=== PATIENT | male | born 1970 | race Caucasian/White ===

== ENCOUNTER 2020-07-24 14:29 | Outpatient (REF) | payer BC, SELFPAY ==
--- NOTE | 2020-07-24 | US_ITS ---
EXAMINATION: US RETROPERITONEAL LIMITED (RENAL ONLY) CLINICAL INFORMATION: Renal stone. COMPARISON: CT abdomen and pelvis 11/20/2019 TECHNIQUE: Real-time imaging of the kidneys. FINDINGS: RIGHT KIDNEY: 12.4 x 5.2 x 5.8 cm (SAG x AP x TRV). The kidney is normal in size, contour, and echogenicity. Renal cortical thickness is normal. No calculi or focal parenchymal lesions. No hydronephrosis. LEFT KIDNEY: 11.4 x 6.2 x 4.8 cm (SAG x AP x TRV). The kidney is normal in size, contour, and echogenicity. Renal cortical thickness is normal. No calculi or focal parenchymal lesions. No hydronephrosis. US/US renal BI IMPRESSION: Unremarkable renal ultrasound. There is no renal calculi or hydronephrosis.
== END 2020-07-24 14:30 | disposition home or self-care (01) ==
LOC: HO.HMGCX 14:29
PROVIDERS: PCP Nurse Practitioner Family; Visit Provider Urology
DX: N20.0 Calculus of kidney (principal)
CPT/HCPCS: 76775

== ENCOUNTER → 2020-08-17 13:44 | Outpatient (BNVA) | payer BC, SELFPAY | PROVIDERS: PCP Nurse Practitioner Family; Visit Provider Urology ==

== ENCOUNTER 2021-01-28 15:34 | Outpatient (REF) | payer BC, SELFPAY ==
--- NOTE | ~2021-01-28 | XR_ITS ---
EXAMINATION: XR HIP, RIGHT CLINICAL INFORMATION: Pain COMPARISON: None TECHNIQUE: Two views of the right hip. FINDINGS: Bone alignment is normal. No fracture or dislocation is seen. There is mild bilateral hip arthritis with joint space narrowing and osteophyte formation, left greater than right. Bones of the pelvis are unremarkable. Soft tissues are unremarkable. XR/XR hip RT w PEL1V IMPRESSION: Mild bilateral hip arthritis.
== END 2021-01-28 15:35 | disposition home or self-care (01) ==
LOC: HO.HMGCX 15:34
PROVIDERS: PCP Nurse Practitioner Family; Visit Provider Nurse Practitioner Family
DX: M25.551 Pain in right hip (principal)
CPT/HCPCS: 73502

== ENCOUNTER 2021-09-10 14:32 | Outpatient (REF) | payer BC, SELFPAY ==
--- NOTE | ~2021-09-10 | US_ITS ---
EXAMINATION: US RETROPERITONEAL LIMITED (RENAL ONLY) CLINICAL INFORMATION: Renal calculi. COMPARISON: Ultrasound renal 07/24/2020. CT abdomen pelvis 11/20/2019. TECHNIQUE: Real-time imaging of the kidneys and bladder. FINDINGS: RIGHT KIDNEY: 12.8 x 5.4 x 6.2 cm (SAG x AP x TRV). The kidney is normal in size, contour, and echogenicity. Renal cortical thickness is normal. No calculi or focal parenchymal lesions. No hydronephrosis. LEFT KIDNEY: 11.4 x 5.5 x 5.1 cm (SAG x AP x TRV). The kidney is normal in size, contour, and echogenicity. Renal cortical thickness is normal. No calculi or focal parenchymal lesions. No hydronephrosis. US/US renal BI IMPRESSION: Normal renal ultrasound.
== END 2021-09-10 14:33 | disposition home or self-care (01) ==
LOC: HO.HMGCX 14:32
PROVIDERS: Visit Provider Urology
DX: Z87.442 Personal history of urinary calculi (principal)
CPT/HCPCS: 76775

== ENCOUNTER → 2021-11-07 15:37 | Outpatient (BNVA) | payer BC, SELFPAY | PROVIDERS: PCP Nurse Practitioner Family; Visit Provider Urology | DX: Z13.89 Encounter for screening for other disorder (principal) ==

== ENCOUNTER 2022-06-23 08:22 | Outpatient (REF) | payer BC, SELFPAY ==
--- NOTE | ~2022-06-23 | XR_ITS ---
EXAMINATION: XR KNEE, LEFT CLINICAL INFORMATION: Knee contusion. COMPARISON: None TECHNIQUE: Four views of the left knee. FINDINGS: Bones and soft tissues appear unremarkable. No fracture or joint effusion appreciated. Alignment is anatomic. Joint spaces are well maintained. No abnormal soft tissue calcification. XR/XR knee LT 4V IMPRESSION: Normal plain film examination of the left knee.
== END 2022-06-23 08:23 | disposition home or self-care (01) ==
LOC: HO.HMGCX 08:22
PROVIDERS: PCP Nurse Practitioner Family; Visit Provider Emergency Medicine
DX: S80.02XA Contusion of left knee, initial encounter (principal)
CPT/HCPCS: 73564

== ENCOUNTER 2022-10-11 10:06 | Inpatient (IN) | payer BC, SELFPAY ==
[2022-10-11] VITALS (8 sets, daily range): BP systolic 116–143; BP diastolic 67–92; PULSE 104–127; RESP 18–24; TEMP 36.8–37; O2SAT 89–96; BMI 26.2
--- NOTE | 2022-10-11 | ECG_ITS ---
Test Reason : chest pain Blood Pressure : / mmHG Vent. Rate : 124 BPM Atrial Rate : 124 BPM P-R Int : 168 ms QRS Dur : 092 ms QT Int : 310 ms P-R-T Axes : 070 -24 056 degrees QTc Int : 445 ms Sinus tachycardia Nonspecific ST abnormality Abnormal ECG When compared with ECG of 17-MAR-2015 13:30, Vent. rate has increased BY [address] elevation now present in Inferior leads T wave inversion no longer evident in Inferior leads Referred By: Generic ED Physician Electronically Signed By:WHITNEY SONI MD
--- NOTE | ~2022-10-11 | XR_ITS ---
EXAMINATION: XR CHEST CLINICAL INFORMATION: Chest pain COMPARISON: Chest 08/09/2016 TECHNIQUE: 2 views of the chest were obtained. FINDINGS: The lungs are slightly hyperinflated but clear of acute process. There is prominent bilateral parahilar markings peribronchial coughing similar previous study likely chronic changes. No pleural effusion. The heart size and pulmonary vascularity is normal. No gross bony abnormality. XR/XR chest 2V IMPRESSION: Prominent bilateral parahilar markings and peribronchial coughing likely chronic airway disease. No acute pneumonic process seen. .
--- NOTE | ~2022-10-11 | CT_ITS ---
EXAMINATION: CT ANGIOGRAM OF THE CHEST WITH AND WITHOUT CONTRAST (CT PULMONARY ANGIOGRAM FOR PE) CLINICAL INFORMATION: Reason for Exam r/o pe COMPARISON: None available. TECHNIQUE: Prior to contrast administration, noncontrast localization images were obtained. Subsequently, multidetector volumetric imaging was performed from the thoracic inlet to below the diaphragms following the administration of 80 mL Omnipaque 350 intravenous contrast. No contrast reaction reported Sagittal, coronal, and MIP oblique sagittal reformatted images were obtained on the CT workstation, uploaded to PACS, and reviewed. This CT examination was performed using dose optimization techniques as appropriate, variously including the following: *Automated exposure control *Adjustment of mA and/or kV according to patient size (this includes techniques or standardized protocols for targeted exams where dose is matched to indication/reason for exam; i.e. extremities or head) *Use of iterative reconstruction technique Total exam dose-length product 342 mGy-cm FINDINGS: QUALITY OF STUDY/CONTRAST BOLUS: Satisfactory. PULMONARY ARTERIES: No central or segmental pulmonary emboli. THORACIC AORTA: No aneurysm or dissection. LUNG: There is a focal groundglass density right upper lobe posteriorly image 16/6. No additional pulmonary nodule, mass or atelectasis. PLEURA: No pleural effusion or pneumothorax. MEDIASTINUM: Heart size and the great vessels are normal caliber. Central trachea and the bronchi widely patent. There is a left thyroid hypodense nodule measuring 2.8 x 2.8 cm. There are small 1 cm lymph nodes lateral to the left coronary artery. No evidence of septal bowing or right heart strain. CORONARY ARTERY CALCIFICATION: None visualized on this study. CHEST WALL/AXILLA: Small shotty lymph nodes are seen in the axilla. The chest wall is unremarkable. OSSEOUS STRUCTURES: No acute or suspicious osseous abnormality. UPPER ABDOMEN: Visualized liver, spleen, pancreas and bilateral adrenal glands unremarkable. No reflux of contrast into the hepatic veins to suggest elevated right heart pressures. CT/CT angio chest PE protocol IMPRESSION: 1. No evidence of PE. 2. No evidence of aortic dissection or aneurysm. 3. Focal groundglass density right upper lobe. 4. Left thyroid nodule. 5. VTE: negative
[2022-10-11 10:46] LABS: MANUAL DIFF FLAG NO
[2022-10-11 10:52] LABS: Basophils Absolute Auto 0.1 X10*3/uL (0.0-0.2); Basophils Percent Auto 1.6 % (0-2); Eosinophils Percent Auto 11.3 % (0-4); Hematocrit 45.8 % (42.0-52.0); Hemoglobin 15.9 g/dl (14.0-18.0); Imm Gran Abs Auto 0.03 X10*3/uL (0.00-0.03); Imm Gran Pct Auto 0.3 % (0.0-0.4); Lymphocytes Absolute Auto 1.7 X10*3/uL (1.2-4.9); Lymphocytes Percent Auto 18.5 % (20-40); Mean Corpuscular HGB Conc 34.7 g/dl (31.0-36.0); Mean Corpuscular Hemoglobin 32.8 pg (27.0-33.0); Mean Corpuscular Volume 94.4 fL (80.0-98.0); Mean Platelet Volume 13.1 fL (9.4-12.4); Monocytes Percent Auto 10.9 % (2-11); Neutrophils Absolute Auto 5.2 x10*3/uL (2.0-8.3); Neutrophils Percent Auto 57.4 % (45-73); Platelet Count 199 X10*3/uL (160-400); Red Blood Count 4.85 X10*6/uL (4.60-5.80); Red Cell Distribution Width 11.8 % (11.0-16.0)
[2022-10-11 11:03] LABS: Alanine Aminotransferase 46 U/L (0-40); Albumin Level 4.6 g/dL (3.5-5.0); Alkaline Phosphatase 92 U/L (39-117); Anion Gap 16 (12-20); Aspartate Amino Transferase 26 U/L (5-37); Bilirubin Total 0.7 mg/dL (0.0-1.0); Blood Urea Nitrogen 11 mg/dL (9-16); Calcium 9.8 mg/dL (8.4-10.2); Carbon Dioxide 22 mmol/L (22-29); Chloride 101 mmol/L (96-108); Creatinine Clr Calc Pharmacy 108.8; Estimated Glomerular Filt Rate > 60; Glucose Random 183 mg/dL (60-115); Potassium 4.3 mmol/L (3.3-5.1); Sodium 135 mmol/L (135-145); Total Protein 7.2 g/dL (6.5-8.0)
[2022-10-11 11:26] LABS: Troponin-I High Sensitivity < 3.5 ng/L (<3.5-35.0)
--- NOTE | 2022-10-11 11:44 | ED_ITS ---
HPI - Chest Pain General Chief Complaint: Chest Pain Stated Complaint: chest pain + cough Time Seen by Provider: 10/11/22 11:11 Source: patient Mode of arrival: ambulatory Limitations: no limitations History of Present Illness HPI narrative: This is a 52 years old presented to emergency department complaining of left chest pain since last night, the patient has been coughing, he visited an urgent care 3 days ago he was given azithromycin. Pain is described as a pressure. Denies any fever chills MD complaint: chest pain Pertinent past history: asthma Onset (ago): day(s) (1) Timing of current episode: constant Onset: during rest Pain radiation: none Quality: aching Risk Factors Coronary artery disease risk factors: none Thoracic aortic dissection risk factors: none Related Data Previous Rx's Medication Instructions Recorded azithromycin 250 mg tablet See Rx Instructions PO .COMPLEX #6 10/08/22 tabs Allergies Allergy/AdvReac Type Severity Reaction Status Date / Time acetaminophen [Percocet] Allergy Unknown anaphylaxis Verified 10/08/22 16:43 oxycodone [Percocet] Allergy Unknown anaphylaxis, Verified 10/08/22 16:43 turn nascimento scallops Allergy Unknown UNKNOWN Verified 10/08/22 16:43 From PERCOCET Allergy Unknown DIFFICULTY Uncoded 06/23/22 08:09 BREATHING scallops Allergy Unknown unknown Uncoded 06/23/22 08:09 Review of Systems Constitutional: Constitutional: Reports no additional constitutional complaints Eyes: Eyes: Reports no additional eye complaints Respiratory: Respiratory: Reports no additional respiratory complaints PMFSH Past Medical History Attestation statement: The following information was validated with the patient. Medical History Hx of renal calculi Hyperlipidemia Knee contusion Social History Social History Alcohol intake: current Alcohol intake frequency: 0-2 drinks per day Alcohol type: beer Patient Tobacco Use Status: Current someday Tobacco user Smoked in Last 30 Days: Yes Use of substances other than those prescribed or required for medical reasons: No Advance Directives: No Physical Exam Vital Signs: Vital Signs: Last Vital Signs Temp 98.6 F 10/11/22 12:44 Pulse 127 H 10/11/22 15:21 Resp 20 10/11/22 15:21 BP 123/83 10/11/22 15:21 Pulse Ox 96 10/11/22 15:21 O2 Del Method Aerosol Mask 10/11/22 15:21 O2 Flow Rate 5 10/11/22 15:21 BMI result Body Mass Index 26.2 Const: General: cooperative Nutritional Appearance: well nourished Orientation/consciousness: patient oriented x3 HEENT: Head: Yes normal to inspection and Yes No palpable skull fracture present General nose exam: Normal external nose present Face and sinus: Yes normal facial exam Mouth: Normal oral and palatal mucosa present Throat: Yes posterior oropharynx normal Neck: Neck: Yes normal visual inspection and Yes full ROM Chest: Chest palpation & inspection: normal inspection of the chest Resp: Effort & Inspection: normal respiratory effort Auscultation: rhonchi Cardio: Jugular venous distension: no JVD Rate: regular rate Rhythm: regular rhythm GI: Inspection: Yes normal to inspection Palpation (GI): Soft to palpation, not firm and nontender Auscultation: normal bowel sounds : General: Yes no CVA tenderness Back/Spine/Pelvis: Back: no CVA tenderness Skin: General skin exam: no rashes or lesions noted, elasticity normal and turgor normal Lesions: no lesions Rashes: no rashes Neuro: General: patient oriented x3 Cranial nerves: Yes CN's II-XII intact bilaterally Course Reevaluation(s) Reevaluation #1: CT chest was negative for PE dissection. Delta troponin was flat, acute coronary syndrome was ruled out Time: 14:56 Reevaluation #2: At this time the patient remain stable but he has an oxygen requirement of 2 L he is also tachycardic I think is very reasonable to admit the patient IV fluids IV antibiotic Time: 16:19 Medications Administered Generic Name Dose Route Start Last Admin Trade Name Freq PRN Reason Stop Dose Admin Sodium Chloride 1,000 mls @ 999 mls/hr 10/11/22 15:45 10/11/22 15:46 Ns IVCONT 10/11/22 16:45 999 mls/hr .Q1H1M GARCIA Administration Discontinued Medications Generic Name Dose Route Start Last Admin Trade Name Freq PRN Reason Stop Dose Admin Albuterol Sulfate 7.5 mg 10/11/22 14:53 10/11/22 15:10 Albuterol Sulfate (0.083%) 2.5 Mg/3 Ml Vial.Neb INHALE 10/11/22 14:54 7.5 mg ONCE ONE Administration Iohexol 65 ml 10/11/22 12:38 10/11/22 12:39 Iohexol 350 Mg/Ml 100 Ml Infus..Btl IV 10/11/22 12:39 65 ml ONCE ONE Administration Methylprednisolone Sodium Succinate 125 mg 10/11/22 14:53 10/11/22 15:14 Methylprednisolone Sod Succ 125 Mg/2 Ml Vial IVPUSH 10/11/22 14:54 125 mg ONCE ONE Administration Medical Decision Making Medical Decision Making [facility] Narrative: Patient has been having chest pain since last night his 1st troponin is negative unlikely acute coronary syndrome will do another troponin, his his initial chest x-ray is no diagnostic but I will do CTA Differential Diagnosis Differential Diagnoses: The differential diagnosis associated with the presentation includes Chest wall pain, ACS, PE, dissection Admission/Observation Consideration of admission/observation: Escalation of care including admission/observation considered Lab Data [facility] Lab Attestation statement: I reviewed the patient's lab results. 10/11/22 10:29 10/11/22 10:29 Labs: Lab Results 10/11/22 10/11/22 10/11/22 Range/Units 10:29 10:29 10:29 WBC 9.0 (4.8-10.8) X10*3/uL RBC 4.85 (4.60-5.80) X10*6/uL Hgb 15.9 (14.0-18.0) g/dl Hct 45.8 (42.0-52.0) % MCV 94.4 (80.0-98.0) fL MCH 32.8 (27.0-33.0) pg MCHC 34.7 (31.0-36.0) g/dl RDW 11.8 (11.0-16.0) % Plt Count 199 (160-400) X10*3/uL MPV 13.1 H (9.4-12.4) fL Immature Gran % (Auto) 0.3 (0.0-0.4) % Neut % (Auto) 57.4 (45-73) % Lymph % (Auto) 18.5 L (20-40) % Dawson % (Auto) 10.9 (2-11) % Eos % (Auto) 11.3 H (0-4) % Baso % (Auto) 1.6 (0-2) % Lymph # (Auto) 1.7 (1.2-4.9) X10*3/uL Dawson # (Auto) 1.0 (0.1-1.2) X10*3/uL Eos # (Auto) 1.0 H (0.0-0.4) X10*3/uL Baso # (Auto) 0.1 (0.0-0.2) X10*3/uL Abs Immat Gran (auto) 0.03 (0.00-0.03) X10*3/uL Absolute Neuts (auto) 5.2 (2.0-8.3) x10*3/uL Absolute Nucleated RBC 0.000 (0.0-0.012) X10*3/uL Nucleated RBC % (auto) 0.0 (0.0-0.2) /100WBC Sodium 135 (135-145) mmol/L Potassium 4.3 (3.3-5.1) mmol/L Chloride 101 (96-108) mmol/L Carbon Dioxide 22 (22-29) mmol/L Anion Gap 16 (12-20) BUN 11 (9-16) mg/dL Creatinine 0.96 (0.5-1.4) mg/dL Estim Creat Clear Calc 108.8 Estimated GFR > 60 Random Glucose 183 H (60-115) mg/dL Calcium 9.8 (8.4-10.2) mg/dL Total Bilirubin 0.7 (0.0-1.0) mg/dL AST 26 (5-37) U/L ALT 46 H (0-40) U/L Alkaline Phosphatase 92 (39-117) U/L Troponin I High Sens < 3.5 (<3.5-35.0) ng/L B-Natriuretic Peptide (<100) pg/mL Total Protein 7.2 (6.5-8.0) g/dL Albumin 4.6 (3.5-5.0) g/dL Influenza Type A (PCR) (Negative) Influenza Type B (PCR) (Negative) RSV RNA Qual (PCR) (Negative) SARS-CoV-2 RNA (RT-PCR) (Negative) 10/11/22 10/11/22 10/11/22 Range/Units 10:29 12:53 12:53 WBC (4.8-10.8) X10*3/uL RBC (4.60-5.80) X10*6/uL Hgb (14.0-18.0) g/dl Hct (42.0-52.0) % MCV (80.0-98.0) fL MCH (27.0-33.0) pg MCHC (31.0-36.0) g/dl RDW (11.0-16.0) % Plt Count (160-400) X10*3/uL MPV (9.4-12.4) fL Immature Gran % (Auto) (0.0-0.4) % Neut % (Auto) (45-73) % Lymph % (Auto) (20-40) % Dawson % (Auto) (2-11) % Eos % (Auto) (0-4) % Baso % (Auto) (0-2) % Lymph # (Auto) (1.2-4.9) X10*3/uL Dawson # (Auto) (0.1-1.2) X10*3/uL Eos # (Auto) (0.0-0.4) X10*3/uL Baso # (Auto) (0.0-0.2) X10*3/uL Abs Immat Gran (auto) (0.00-0.03) X10*3/uL Absolute Neuts (auto) (2.0-8.3) x10*3/uL Absolute Nucleated RBC (0.0-0.012) X10*3/uL Nucleated RBC % (auto) (0.0-0.2) /100WBC Sodium (135-145) mmol/L Potassium (3.3-5.1) mmol/L Chloride (96-108) mmol/L Carbon Dioxide (22-29) mmol/L Anion Gap (12-20) BUN (9-16) mg/dL Creatinine (0.5-1.4) mg/dL Estim Creat Clear Calc Estimated GFR Random Glucose (60-115) mg/dL Calcium (8.4-10.2) mg/dL Total Bilirubin (0.0-1.0) mg/dL AST (5-37) U/L ALT (0-40) U/L Alkaline Phosphatase (39-117) U/L Troponin I High Sens < 3.5 (<3.5-35.0) ng/L B-Natriuretic Peptide < 10 (<100) pg/mL Total Protein (6.5-8.0) g/dL Albumin (3.5-5.0) g/dL Influenza Type A (PCR) NEGATIVE (Negative) Influenza Type B (PCR) NEGATIVE (Negative) RSV RNA Qual (PCR) NEGATIVE (Negative) SARS-CoV-2 RNA (RT-PCR) NEGATIVE (Negative) Independent Interpretation I performed an independent interpretation of an: EKG Interpretation: Sinus tachycardia rate [address]-T changes Radiology Impression Discussion of test interpretation with radiology: I have reviewed the radiologist's reading. Radiologist Impression: CHEST WALL/AXILLA: Small shotty lymph nodes are seen in the axilla. The chest wall is unremarkable. OSSEOUS STRUCTURES: No acute or suspicious osseous abnormality.? UPPER ABDOMEN: Visualized liver, spleen, pancreas and bilateral adrenal glands unremarkable.? No reflux of contrast into the hepatic veins to suggest elevated right heart pressures. CT/CT angio chest PE protocol IMPRESSION: 1.? No evidence of PE. 2.? No evidence of aortic dissection or aneurysm. 3.? Focal groundglass density right upper lobe. 4.? Left thyroid nodule. 5.? VTE: negative Dictated By: Pierre Santiago MD Signed By: <Electronically signed by Pierre Santiago MD in OV> 10/11/22 1356 DD/ 1252 Discharge Plan Discharge Clinical Impression: Hypoxia, Asthma exacerbation, Pneumonia Patient Disposition: Admitted As Inpatient
[2022-10-11 11:47] LABS: Influenza A PCR NEGATIVE (Negative); Influenza B PCR NEGATIVE (Negative); Resp Syncy Virus RNA Qual PCR NEGATIVE (Negative); SARS COV2 PCR INHOUSE NEGATIVE (Negative)
[2022-10-11] MEDS: iohexoL 350 MG/ML 100 ML INFUS..BTL 65 ML IV (12:39)
[2022-10-11 13:20] LABS: B Type Natriuretic Peptide < 10 pg/mL (<100)
[2022-10-11 13:57] LABS: Troponin-I High Sensitivity < 3.5 ng/L (<3.5-35.0)
[2022-10-11] MEDS: Albuterol Sulfate (0.083%) 2.5 MG/3 ML VIAL.NEB 7.5 MG INHALE (15:10)
[2022-10-11] MEDS: methylPREDNISolone Sod Succ 125 MG/2 ML VIAL IVPUSH (15:14)
[2022-10-11] MEDS: 0.9 % Sodium Chloride 1,000 ML 999 ML IVCONT (15:46)
--- NOTE | 2022-10-11 16:33 | PM.IMHP ---
History of Present Illness Date of Service: 10/11/22 Chief Complaint: SOB A 52 years old male with PMH of Asthma who presents to the hospital complaining of 5 days history of SOB and cough. the patient report that he started to feel SOB and wheezy few days ago. went to urgent care who prescribed him Azithro with no significant improvement as he was using the rescue inhalor with no improvement in symptoms. reports fever. chills , left sided chest pain but denies any nausea, vomiting, change in bowel habit, headache, or urinary symptoms./ In the emergency he was found hypoxic with O2 reading of 88% requring oxygen supplement. CTA showed possible focal infection. admitted for treatment of asthma and pneumonia. Review of Systems Review of Systems: reporting fever, chills and generalized weakness No chest pain, palpitation No shortness of breath or coughing No abdominal pain, nausea or vomiting No urinary symptoms No any rash or wounds PMFSH Medical History Hx of renal calculi Hyperlipidemia Knee contusion Social History Alcohol intake: current Alcohol intake frequency: 0-2 drinks per day Alcohol type: beer Patient Tobacco Use Status: Current someday Tobacco user Smoked in Last 30 Days: Yes Use of substances other than those prescribed or required for medical reasons: No Advance Directives: No Meds Allergies Allergy/AdvReac Type Severity Reaction Status Date / Time acetaminophen [Percocet] Allergy Unknown anaphylaxis Verified 10/08/22 16:43 oxycodone [Percocet] Allergy Unknown anaphylaxis, Verified 10/08/22 16:43 turn nascimento scallops Allergy Unknown UNKNOWN Verified 10/08/22 16:43 From PERCOCET Allergy Unknown DIFFICULTY Uncoded 06/23/22 08:09 BREATHING scallops Allergy Unknown unknown Uncoded 06/23/22 08:09 Active Medications: Current Medications Albuterol Sulfate (Albuterol Sulfate (0.083%) 2.5 Mg/3 Ml Vial.Neb) 2.5 mg INHALE Q4H PRN PRN Reason: Shortness of Breath/Wheezing Enoxaparin Sodium (Enoxaparin Sodium 40 Mg/0.4 Ml Syringe) 40 mg SUBCUT Q24H GARCIA Sodium Chloride (Ns) 1,000 mls @ 999 mls/hr IVCONT .Q1H1M GARCIA Stop: 10/11/22 16:45 Last Admin: 10/11/22 15:46 Dose: 999 mls/hr Doxycycline Hyclate 100 mg/ (Sodium Chloride) 250 mls @ 166.67 mls/hr IV ONCE ONE Stop: 10/11/22 17:35 Ceftriaxone Sodium 1 gm/ (Sodium Chloride) 50 mls @ 100 mls/hr IV Q24H GARCIA Doxycycline Hyclate 100 mg/ (Sodium Chloride) 250 mls @ 166.67 mls/hr IV Q12H [facility] Levalbuterol HCl (Levalbuterol Hcl 1.25 Mg/0.5 Ml Vial.Neb) 1.25 mg INHALE RQ4H WHILE AWAKE GARCIA Methylprednisolone Sodium Succinate (Methylprednisolone Sod Succ 40 Mg/Ml Vial) 40 mg IVPUSH Q24H GARCIA Ondansetron HCl (Ondansetron Hcl 4 Mg/2 Ml Vial) 4 mg IVPUSH Q8H PRN PRN Reason: Nausea and Vomiting Physical Exam Vital Signs and Narrative: Vital Signs: Last Vital Signs Temp 98.6 F 10/11/22 12:44 Pulse 127 H 10/11/22 15:21 Resp 20 10/11/22 15:21 BP 123/83 10/11/22 15:21 Pulse Ox 96 10/11/22 15:21 O2 Del Method Aerosol Mask 10/11/22 15:21 O2 Flow Rate 5 10/11/22 15:21 BMI result Body Mass Index 26.2 Const: Other: Constitutional : Awake, interactive, not in distress Neck : Normal inspection, Supple Cardiovascular : RRR, no JVP, no lower extremity edema, tachycardia Respiratory : fair bilateral air entry, no crackles, scattered wheezes Gastrointestinal: soft, lax, Normal bowel sounds, Non tender Skin : Warm, Dry Neurological : Alert & oriented x3, No focal deficit Results Labs 10/11/22 10:29 10/11/22 10:29 Labs: Laboratory Results - last 24 hr 10/11/22 10/11/22 10/11/22 10:29 10:29 10:29 MCV 94.4 MCH 32.8 MCHC 34.7 RDW 11.8 Plt Count 199 MPV 13.1 H Immature Gran % (Auto) 0.3 Neut % (Auto) 57.4 Lymph % (Auto) 18.5 L [place] % (Auto) 10.9 Eos % (Auto) 11.3 H Baso % (Auto) 1.6 Lymph # (Auto) 1.7 [place] # (Auto) 1.0 Eos # (Auto) 1.0 H Baso # (Auto) 0.1 Abs Immat Gran (auto) 0.03 Absolute Neuts (auto) 5.2 Absolute Nucleated RBC 0.000 Nucleated RBC % (auto) 0.0 Anion Gap 16 Estim Creat Clear Calc 108.8 Estimated GFR > 60 Random Glucose 183 H Calcium 9.8 Total Bilirubin 0.7 AST 26 ALT 46 H Alkaline Phosphatase 92 Troponin I High Sens < 3.5 B-Natriuretic Peptide Total Protein 7.2 Albumin 4.6 Influenza Type A (PCR) Influenza Type B (PCR) RSV RNA Qual (PCR) SARS-CoV-2 RNA (RT-PCR) 10/11/22 10/11/22 10/11/22 10:29 12:53 12:53 MCV MCH MCHC RDW Plt Count MPV Immature Gran % (Auto) Neut % (Auto) Lymph % (Auto) [place] % (Auto) Eos % (Auto) Baso % (Auto) Lymph # (Auto) [place] # (Auto) Eos # (Auto) Baso # (Auto) Abs Immat Gran (auto) Absolute Neuts (auto) Absolute Nucleated RBC Nucleated RBC % (auto) Anion Gap Estim Creat Clear Calc Estimated GFR Random Glucose Calcium Total Bilirubin AST ALT Alkaline Phosphatase Troponin I High Sens < 3.5 B-Natriuretic Peptide < 10 Total Protein Albumin Influenza Type A (PCR) NEGATIVE Influenza Type B (PCR) NEGATIVE RSV RNA Qual (PCR) NEGATIVE SARS-CoV-2 RNA (RT-PCR) NEGATIVE Imaging Radiologist's Impressions: Impressions Chest X-Ray 10/11/22 10:59 IMPRESSION: Prominent bilateral parahilar markings and peribronchial coughing likely chronic airway disease. No acute pneumonic process seen. . Chest CTA 10/11/22 12:52 IMPRESSION: 1. No evidence of PE. 2. No evidence of aortic dissection or aneurysm. 3. Focal groundglass density right upper lobe. 4. Left thyroid nodule. 5. VTE: negative Assessment and Plan (1) Hypoxia: Status: Acute (2) Asthma exacerbation: Status: Acute (3) Pneumonia: Status: Acute Plan A 52 years old male with PMH of Asthma who presents to the hospital complaining of 5 days history of SOB and cough. the patient report that he started to feel SOB and wheezy few days ago. Hypoxia 2/2 Asthma exacerbation and community aquired pneumonia not septic CTA showing possible focal area of infx RUL blood cultures sent Start Doxycycline and Ceftriaxone Xopenex nebs PRN Albuterol nebs Methylprednisolone wean oxygen down as tolerated DVT PPx Lovenox Patient will need 2 overnight hospital stay for treatment of hypoxa 2/2 pneumonia Time Spent With Patient Time: Total time managing care of this patient today ____ minutes. Quality Stroke Does the patient have a stroke diagnosis?: No VTE Prior VTE?: No VTE Risk Level:: Medical - moderate - high VTE Device Contraindication: Treatment Not Indicated VTE Drug Contraindication: N/A - Med Ordered
[2022-10-11] MEDS: Doxycycline Hyclate 100 MG in 0.9 % Sodium Chloride 250 ML 166.67 MG IV (17:54)
--- NOTE | 2022-10-11 17:57 | PC.NURSE ---
pt a&ox3, sinus tach on monitor, O2 down to 88% on room air, improved to 95 on 3L HC, pt medicated per provider order with abx - delay due to no order for blood cultures, cultures drawn. pt reporting 2/10 left sided chest pain with some improvement in breathing post treatments and O2. pt pending bed assignment.
--- NOTE | 2022-10-11 18:38 | PHA.MEDREC ---
Pharmacy Consult ? Medication Reconciliation Pharmacy has completed the medication reconciliation. Spoke to patient to confirm meds.
[2022-10-11] MEDS: cefTRIAXone sodium 1 GM in 0.9 % Sodium Chloride 50 ML IV (19:15)
[2022-10-11] MEDS: Enoxaparin Sodium 40 MG/0.4 ML SYRINGE SUBCUT (19:17)
--- NOTE | 2022-10-11 19:25 | PC.NURSE ---
pt medicated per provider order, RN-RN report called into [facility].
--- NOTE | 2022-10-11 19:36 | PC.NURSE ---
pt given ham sandwich, arleth shirley and ice water, pt resting quietly watching TV, pt pending transport.
[2022-10-12] VITALS (9 sets, daily range): BP systolic 102–135; BP diastolic 62–80; PULSE 86–117; RESP 18–24; TEMP 36.6–36.9; O2SAT 92–94
[2022-10-12] MEDS: Doxycycline Hyclate 100 MG in 0.9 % Sodium Chloride 250 ML 166.67 MG IV ×2 (05:49→18:14)
[2022-10-12 08:05] LABS: Anion Gap 18 (12-20); Blood Urea Nitrogen 19 mg/dL (9-16); Carbon Dioxide 21 mmol/L (22-29); Chloride 102 mmol/L (96-108); Creatinine Clr Calc Pharmacy 114.7; Estimated Glomerular Filt Rate > 60; Glucose Random 251 mg/dL (60-115); Potassium 4.5 mmol/L (3.3-5.1); Sodium 136 mmol/L (135-145)
[2022-10-12] MEDS: methylPREDNISolone Sod Succ 40 MG/ML VIAL IVPUSH (08:59)
--- NOTE | 2022-10-12 09:46 | MHC.CM.PN ---
CM met with Patient at bedside. Patient lives in a house with his and he required no services nor DME CHILD AND ADOLESCENT PSYCHIATRIST. Home self care is the goal and CM has initiated and will follow for dc planning. Patient has received Covid vax x4 and his PCP is Dr. Wade Rangel.
--- NOTE | 2022-10-12 12:49 | HO.PM.IMPN ---
Subjective Subjective Date of Service: 10/12/22 Interval History: Feels better today report chills but no fever Still on O2 supplement pending final cultures Review of Systems reporting chills and generalized weakness No chest pain, palpitation No shortness of breath or coughing No abdominal pain, nausea or vomiting No urinary symptoms No any rash or wounds Physical Exam Vital Signs: Vital Signs: Last Vital Signs Temp 98.2 F 10/12/22 08:00 Pulse 111 H 10/12/22 12:02 Resp 24 H 10/12/22 12:02 BP 129/72 10/12/22 08:00 Pulse Ox 92 10/12/22 08:00 O2 Del Method Nasal Cannula 10/12/22 08:00 O2 Flow Rate 1.5 10/12/22 08:00 BMI result Body Mass Index 26.2 Const: Other: Constitutional : Awake, interactive, not in distress Neck : Normal inspection, Supple Cardiovascular : RRR, no JVP, no lower extremity edema, tachycardia Respiratory : fair bilateral air entry, no crackles, scattered wheezes Gastrointestinal: soft, lax, Normal bowel sounds, Non tender Skin : Warm, Dry Neurological : Alert & oriented x3, No focal deficit Objective Data Active Medications Albuterol Sulfate (Albuterol Sulfate (0.083%) 2.5 Mg/3 Ml Vial.Neb) 2.5 mg INHALE Q4H PRN PRN Reason: Shortness of Breath/Wheezing Enoxaparin Sodium (Enoxaparin Sodium 40 Mg/0.4 Ml Syringe) 40 mg SUBCUT Q24H [facility] Last Admin: 10/11/22 19:17 Dose: 40 mg Documented By: COLTEN Ceftriaxone Sodium 1 gm/ (Sodium Chloride) 50 mls @ 100 mls/hr IV Q24H [facility] Last Infusion: 10/11/22 20:24 Dose: 0 mls/hr Documented By: COLTEN Doxycycline Hyclate 100 mg/ (Sodium Chloride) 250 mls @ 166.67 mls/hr IV Q12H [facility] Last Infusion: 10/12/22 08:14 Dose: 166.67 mls/hr Documented By: CHELSEY Levalbuterol HCl (Levalbuterol Hcl 1.25 Mg/0.5 Ml Vial.Neb) 1.25 mg INHALE RQ4H WHILE AWAKE [facility] Last Admin: 10/12/22 12:01 Dose: 1.25 mg Documented By: NAIMA Methylprednisolone Sodium Succinate (Methylprednisolone Sod Succ 40 Mg/Ml Vial) 40 mg IVPUSH Q24H [facility] Last Admin: 10/12/22 08:59 Dose: 40 mg Documented By: CHELSEY Ondansetron HCl (Ondansetron Hcl 4 Mg/2 Ml Vial) 4 mg IVPUSH Q8H PRN PRN Reason: Nausea and Vomiting Labs 10/11/22 10:29 10/12/22 06:59 Labs: Laboratory Results - last 24 hr 10/11/22 10/11/22 10/12/22 12:53 12:53 06:59 Anion Gap 18 Estim Creat Clear Calc 114.7 Estimated GFR > 60 Random Glucose 251 H Calcium 9.0 D Troponin I High Sens < 3.5 B-Natriuretic Peptide < 10 Assessment and Plan (1) Asthma exacerbation: Status: Acute (2) Pneumonia: Status: Acute (3) Hypoxia: Status: Acute Plan A 52 years old male with PMH of Asthma who presents to the hospital complaining of 5 days history of SOB and cough. the patient report that he started to feel SOB and wheezy few days ago. Hypoxia 2/2 Asthma exacerbation and community aquired pneumonia not septic CTA showing possible focal area of infx RUL blood cultures pending continue Doxycycline and Ceftriaxone Xopenex nebs PRN Albuterol nebs Methylprednisolone Q24 wean oxygen down as tolerated DVT PPx Lovenox Patient will need overnight hospital stay for treatment of hypoxa 2/2 pneumonia Time Spent With Patient Time: Total time managing care of this patient today ____ minutes. Quality Stroke Does the patient have a stroke diagnosis?: No VTE Prior VTE?: No VTE Risk Level:: Medical - moderate - high VTE Device Contraindication: Treatment Not Indicated VTE Drug Contraindication: N/A - Med Ordered
[2022-10-12] MEDS: cefTRIAXone sodium 1 GM in 0.9 % Sodium Chloride 50 ML IV (16:29)
[2022-10-12] MEDS: Enoxaparin Sodium 40 MG/0.4 ML SYRINGE SUBCUT (18:15)
[2022-10-13] VITALS (10 sets, daily range): BP systolic 110–136; BP diastolic 70–79; PULSE 78–114; RESP 16–20; TEMP 36.7–37; O2SAT 94–97
[2022-10-13] MEDS: Doxycycline Hyclate 100 MG in 0.9 % Sodium Chloride 250 ML 166.67 MG IV ×2 (06:07→18:37)
[2022-10-13] MEDS: methylPREDNISolone Sod Succ 40 MG/ML VIAL IVPUSH (08:27)
--- NOTE | 2022-10-13 13:18 | P.PNIM_ITS ---
Subjective Subjective Date of Service: 10/13/22 Interval History: Feels better today report chills but no fever and feels weak and has no energy Still on O2 supplement pending final cultures Review of Systems reporting chills and generalized weakness No chest pain, palpitation No shortness of breath or coughing No abdominal pain, nausea or vomiting No urinary symptoms No any rash or wounds Physical Exam Vital Signs: Vital Signs: Last Vital Signs Temp 98.5 F 10/13/22 11:24 Pulse 99 10/13/22 11:27 Resp 20 10/13/22 11:27 BP 129/70 10/13/22 11:24 Pulse Ox 95 10/13/22 11:24 O2 Del Method Nasal Cannula 10/13/22 11:24 O2 Flow Rate 1.5 10/13/22 08:00 BMI result Body Mass Index 26.2 Const: Other: Constitutional : Awake, interactive, not in distress Neck : Normal inspection, Supple Cardiovascular : RRR, no JVP, no lower extremity edema, tachycardia Respiratory : fair bilateral air entry, no crackles, scattered wheezes Gastrointestinal: soft, lax, Normal bowel sounds, Non tender Skin : Warm, Dry Neurological : Alert & oriented x3, No focal deficit Objective Data Active Medications Albuterol Sulfate (Albuterol Sulfate (0.083%) 2.5 Mg/3 Ml Vial.Neb) 2.5 mg INHALE Q4H PRN PRN Reason: Shortness of Breath/Wheezing Enoxaparin Sodium (Enoxaparin Sodium 40 Mg/0.4 Ml Syringe) 40 mg SUBCUT Q24H [facility] Last Admin: 10/12/22 18:15 Dose: 40 mg Documented By: HIEN Ceftriaxone Sodium 1 gm/ (Sodium Chloride) 50 mls @ 100 mls/hr IV Q24H [facility] Last Infusion: 10/12/22 18:14 Dose: 0 mls/hr Documented By: HIEN Doxycycline Hyclate 100 mg/ (Sodium Chloride) 250 mls @ 166.67 mls/hr IV Q12H [facility] Last Infusion: 10/13/22 08:29 Dose: 0 mls/hr Documented By: NATALIE Levalbuterol HCl (Levalbuterol Hcl 1.25 Mg/0.5 Ml Vial.Neb) 1.25 mg INHALE RQ4H WHILE AWAKE [facility] Last Admin: 10/13/22 11:26 Dose: 1.25 mg Documented By: NAIMA Methylprednisolone Sodium Succinate (Methylprednisolone Sod Succ 40 Mg/Ml Vial) 40 mg IVPUSH Q24H [facility] Last Admin: 10/13/22 08:27 Dose: 40 mg Documented By: NATALIE Ondansetron HCl (Ondansetron Hcl 4 Mg/2 Ml Vial) 4 mg IVPUSH Q8H PRN PRN Reason: Nausea and Vomiting Labs 10/11/22 10:29 10/12/22 06:59 Microbiology Microbiology Results: Microbiology 10/11/22 17:18 Blood Culture - Preliminary Blood - Subclavian No growth after 24 hours. 10/11/22 17:18 Blood Culture - Preliminary Blood - Subclavian No growth after 24 hours. Assessment and Plan (1) Hypoxia: Status: Acute (2) Asthma exacerbation: Status: Acute (3) Pneumonia: Status: Acute Plan A 52 years old male with PMH of Asthma who presents to the hospital complaining of 5 days history of SOB and cough. the patient report that he started to feel SOB and wheezy few days ago. Hypoxia 2/2 Asthma exacerbation and community aquired pneumonia not septic CTA showing possible focal area of infx RUL blood cultures pending continue Doxycycline and Ceftriaxone Xopenex nebs PRN Albuterol nebs Methylprednisolone Q24 wean oxygen down as tolerated DVT PPx Lovenox Patient will need overnight hospital stay for treatment of hypoxa 2/2 pneumonia Time Spent With Patient Time: Total time managing care of this patient today ____ minutes. Quality Stroke Does the patient have a stroke diagnosis?: No VTE Prior VTE?: No VTE Risk Level:: Medical - moderate - high VTE Device Contraindication: Treatment Not Indicated VTE Drug Contraindication: N/A - Med Ordered
--- NOTE | 2022-10-13 13:33 | MHC.CM.PN ---
per rounds pt will be ready in 1 more day dc plan home no servceis
[2022-10-13] MEDS: cefTRIAXone sodium 1 GM in 0.9 % Sodium Chloride 50 ML IV (18:04)
[2022-10-13] MEDS: Enoxaparin Sodium 40 MG/0.4 ML SYRINGE SUBCUT (18:05)
[2022-10-14] MEDS: Doxycycline Hyclate 100 MG in 0.9 % Sodium Chloride 250 ML 166.67 MG IV (05:41)
[2022-10-14 07:25] VITALS: BP 129/75; PULSE 95; RESP 18; TEMP 36.9; O2SAT 97
[2022-10-14] MEDS: methylPREDNISolone Sod Succ 40 MG/ML VIAL IVPUSH (08:35)
[2022-10-14 08:47] LABS: Thyroid Stimulating Hormone 1.75 uIU/mL (0.32-4.0)
[2022-10-14 09:20] VITALS: PULSE 80; RESP 18; O2SAT 90
[2022-10-14 10:06] LABS: T4 Thyroxine 8.7 ug/dL (4.5-12.0)
[2022-10-14 11:19] VITALS: BP 142/96; PULSE 125; RESP 20; TEMP 36.7; O2SAT 91
--- NOTE | 2022-10-14 11:32 | PM.DS ---
DS: Providers Provider Date of Service: 10/14/22 Date of admission: 10/11/22 16:27 [facility]: Diagnosis Discharge Diagnosis (1) Hypoxia: Status: Acute (2) Asthma exacerbation: Status: Acute (3) Pneumonia: Status: Acute (4) Thyroid nodule: Status: Acute DS: Summary Hospital Course Hospital Course: Admission note HPI A 52 years old male with PMH of Asthma who presents to the hospital complaining of 5 days history of SOB and cough. the patient report that he started to feel SOB and wheezy few days ago. went to urgent care who prescribed him Azithro with no significant improvement as he was using the rescue inhalor with no improvement in symptoms. reports fever. chills , left sided chest pain but denies any nausea, vomiting, change in bowel habit, headache, or urinary symptoms./ In the emergency he was found hypoxic with O2 reading of 88% requring oxygen supplement. CTA showed possible focal infection. admitted for treatment of asthma and pneumonia. Hospital course Admitted to the hospital for evaluation for hypoxia 2/2 Asthma exacerbation and community aquired pneumonia. CTA showing possible focal area of infx RUL. blood cultures negative. Treated with IV Doxycycline and Ceftriaxone, Xopenex nebs, PRN Albuterol nebs and Methylprednisolone Q24. Weaned off Oxygen and was able to ambulate on room air maintaining sats above 95%. CTA reported 2.8x2.8 cm thyroid nodule that needs further work up as outpatient as T4,TSH were both normal. To be follow by PCP. Continue Antibiotics as prescribed Restart home inhalors Continue steroids as prescribed To follow with PCP for Fine needle aspiration of thyroid nodule. Time Spent with Patient Time attestation: Total time managing care of this patient today ____ minutes. Discharge coordination time: Greater than 30 minutes Quality: Safe Use of Opioids Does Pt have an Active Cancer Diagnosis on the Problem List?: No Quality: Stroke Does the patient have a stroke diagnosis?: No Physical Exam Vital Signs: Vital Signs: Last Vital Signs Temp 98.1 F 10/14/22 11:19 Pulse 125 H 10/14/22 11:19 Resp 20 10/14/22 11:19 BP 142/96 H 10/14/22 11:19 Pulse Ox 91 L 10/14/22 11:19 O2 Del Method Room Air 10/14/22 11:19 O2 Flow Rate 1 10/14/22 07:25 BMI result Body Mass Index 26.2 Const: Other: Constitutional : Awake, interactive, not in distress Neck : Normal inspection, Supple Cardiovascular : RRR, no JVP, no lower extremity edema, tachycardia Respiratory : fair bilateral air entry, no crackles, scattered wheezes Gastrointestinal: soft, lax, Normal bowel sounds, Non tender Skin : Warm, Dry Neurological : Alert & oriented x3, No focal deficit DS: Data Data Completed and Pending Labs on day of discharge: Laboratory Results - last 24 hr 10/14/22 08:04 TSH 1.75 Thyroxine (T4) 8.7 Preliminary micro results at discharge 10/11/22 17:18 Blood Culture - Preliminary Blood - Subclavian No growth after 48 hours. 10/11/22 17:18 Blood Culture - Preliminary Blood - Subclavian No growth after 48 hours. Imaging Chest x-ray: Radiologist's impression: ITS Impressions Chest X-Ray 10/11/22 10:59 IMPRESSION: Prominent bilateral parahilar markings and peribronchial coughing likely chronic airway disease. No acute pneumonic process seen. . Chest CTA 10/11/22 12:52 IMPRESSION: 1. No evidence of PE. 2. No evidence of aortic dissection or aneurysm. 3. Focal groundglass density right upper lobe. 4. Left thyroid nodule. 5. VTE: negative Discharge Plan Discharge Anticipated Discharge Date/Time: 10/14/22 11:06 Patient Disposition: Home, Self-Care Discharge Diagnosis: Asthma exacerbation Pneumonia Referrals: Wade Rangel, [employer]INATOR[facility] [Primary Care Provider] - 1 Week Discharge Medications: New doxycycline monohydrate 100 mg capsule 100 mg PO BID Qty: 10 0RF cefuroxime axetil 500 mg tablet 500 mg PO BID Qty: 10 0RF prednisone 20 mg tablet 40 mg PO DAILY Qty: 6 0RF benzonatate 100 mg capsule 100 mg PO TID PRN (Reason: cough) Qty: 21 0RF Continued multivitamin Tablet 1 tab PO DAILY Discontinued azithromycin 250 mg tablet See Rx Instructions PO .COMPLEX Qty: 6 0RF Rx Instructions: take 500 mg today (day 1), then 250 mg for 4 days (days 2-5) PO; END DATE: 10/12/22 Discharge Orders: Discharge Order (Routine); Ordered 10/14/22 Ordered By: Michelet Graff Diet: Advance to usual diet Activity on Discharge: As tolerated Stand Alone Forms: Patient Portal Discharge page Care Plan Goals: Read below Health Concerns: Read below Plan of Treatment: Read below Assessment: You were admitted to the hospital for evaluation of difficulty breathing and wheezing. treated for asthma exacerbation and pneumonia with steroids, nebulizers and antibiotics. CT scan showed a 2.8x2.8cm nodule in your thyroid gland. thyroid function test normal. you will need further eval by PCP. Continue Antibiotics as prescribed Restart home inhalors Continue steroids as prescribed To follow with PCP for Fine needle aspiration of thyroid nodule.
--- NOTE | 2022-10-14 11:41 | MHC.CM.PN ---
Patient has been medically cleared for dc to home today, self care.
[2022-10-14 12:27] VITALS: PULSE 125; RESP 18; O2SAT 91
== END 2022-10-14 14:07 | disposition home or self-care (01) | DRG 139 ==
LOC: HO.ED 16:17 → HO.EDOVER 16:39 → HO.IMC 18:46
PROVIDERS: Admitting Provider Student in an Organized Health Care Education/Training Program; Emergency Provider Emergency Medicine; PCP Nurse Practitioner Family; Visit Provider Student in an Organized Health Care Education/Training Program
DX: J18.9 Pneumonia, unspecified organism (principal); J45.21 Mild intermittent asthma with (acute) exacerbation; E78.5 Hyperlipidemia, unspecified; E04.1 Nontoxic single thyroid nodule; F17.210 Nicotine dependence, cigarettes, uncomplicated; Z20.822 Contact with and (suspected) exposure to COVID-19; Z71.6 Tobacco abuse counseling; Z88.5 Allergy status to narcotic agent; Z88.6 Allergy status to analgesic agent; Z79.51 Long term (current) use of inhaled steroids; Z79.899 Other long term (current) drug therapy
CPT/HCPCS: 0241U; 36415; 71046; 71275; 80048; 80053; 83880; 84436; 84443; 84484; 85025; 87040; 93005; 94640; 99285; J0696; J1650; J2920; J2930; Q9967

== ENCOUNTER 2022-10-20 07:49 | Outpatient (REF) | payer BC, SELFPAY ==
--- NOTE | ~2022-10-20 | US_ITS ---
EXAMINATION: US RETROPERITONEAL LIMITED (RENAL ONLY) CLINICAL INFORMATION: Personal history of urinary calculi. COMPARISON: Ultrasound retroperitoneal limited (renal only) 09/10/2021 and 07/24/2020. CT abdomen and pelvis with contrast 11/20/2019. TECHNIQUE: Real-time imaging of the kidneys. FINDINGS: RIGHT KIDNEY: 12.4 x 6.3 x 5.4 cm (SAG x AP x TRV). The kidney is normal in size, contour, and echogenicity. Renal cortical thickness is normal. No calculi or focal parenchymal lesions. No hydronephrosis. LEFT KIDNEY: 11.7 x 6.3 x 5.4 cm (SAG x AP x TRV). The kidney is normal in size, contour, and echogenicity. Renal cortical thickness is normal. No calculi or focal parenchymal lesions. No hydronephrosis. US/US renal BI IMPRESSION: Normal renal ultrasound.
--- NOTE | ~2022-10-20 | US_ITS ---
EXAMINATION: US THYROID CLINICAL INFORMATION: Nontoxic single thyroid nodule. COMPARISON: None available. TECHNIQUE: Linear transducer grayscale and color Doppler examination with attention to the region of the thyroid. FINDINGS: SIZE: Measurements of the thyroid lobes and nodules are given in sagittal, anteroposterior and transverse dimensions respectively. Right Thyroid Lobe: 5.7 x 2.1 x 1.9 cm, volume 11.9 mL. Parenchyma: The gland echotexture is homogeneous. Thyroid vascularity is normal. Left Thyroid Lobe: 5.7 x 4.0 x 3.4 cm, volume 40.5 mL. Parenchyma: The gland echotexture is homogeneous. Thyroid vascularity is normal. Isthmus: 0.3 cm in maximum AP dimension. Estimated total number of nodules greater than or equal to 1 cm: 1. Aircraft Pneudraulics Repairer nodules are described as follows: 1. Location: Left mid. Size: 3.7 x 2.5 x 2.8 cm, volume 13.4 mL. Nodule characteristics: Composition: Cystic(0). ACR TI-RADS total points: 0 ACR TI-RADS category: 1 2. Location: Right mid. Size: 0.8 x 0.7 x 0.7 cm, volume 0.2 mL. Nodule characteristics: Composition: Solid (2). Echogenicity: Very hypoechoic (3). Shape: Not taller than wide (0). Margins: Smooth (0). Echogenic Foci: None (0). ACR TI-RADS total points: 5 ACR TI-RADS category: 4 3. Location: Right mid. Size: 0.4 x 0.3 x 0.4 cm, volume 0.02 mL. Nodule characteristics: Composition: Solid (2). Echogenicity: Hypoechoic (2). Shape: Not taller than wide (0). Margins: Smooth (0). Echogenic Foci: None (0). ACR TI-RADS total points: 4 ACR TI-RADS category: 4 4. Location: Right inferior. Size: 0.4 x 0.4 x 0.4 cm, volume 0.03 mL. Nodule characteristics: Composition: Solid (2). Echogenicity: Hypoechoic (2). Shape: Not taller than wide (0). Margins: Smooth (0). Echogenic Foci: None (0). ACR TI-RADS total points: 4 ACR TI-RADS category: 4 NODES: No lymphadenopathy is seen in the tissue surrounding the thyroid gland. US/US thyroid IMPRESSION: Enlarged left lobe. Bilateral thyroid nodules including large cystic left nodule. According to TI RADS criteria, no ultrasound follow-up or fine-needle aspiration recommended. ACR TI-RADS RECOMMENDATION REFERENCE: Ultrasound-guided fine-needle aspiration, followup ultrasound, no further follow up. * TR1 (0 point) and TR2 (2 points): No FNA or follow up. * TR3 (3 points): FNA if more than or equal to 2.5 cm in maximum dimension, followup ultrasound in 1, 3 and 5 years if 1.5 to 2.4 cm in maximum dimension. * TR4 (4-6 points): FNA if more than or equal to 1.5 cm in maximum dimension, followup ultrasound in 1, 2, 3 and 5 years if 1 to 1.4 cm in maximum dimension. * TR5 (more than or equal to 7 points): FNA if more than or equal to 1 cm in maximum dimension, followup ultrasound every year for 5 years if 0.5 to 0.9 cm in maximum dimension. * TR3, TR4 or TR5 nodules that are below the size threshold for followup receive no follow up.
== END 2022-10-20 07:50 | disposition home or self-care (01) ==
LOC: HO.US 07:49
PROVIDERS: PCP Nurse Practitioner Family; Visit Provider Urology
DX: E04.1 Nontoxic single thyroid nodule (principal); Z87.442 Personal history of urinary calculi
CPT/HCPCS: 76536; 76775

== ENCOUNTER → 2022-10-23 11:33 | Outpatient (BNVA) | payer BC, SELFPAY | PROVIDERS: PCP Nurse Practitioner Family; Visit Provider Internal Medicine | DX: Z13.89 Encounter for screening for other disorder (principal) ==

== ENCOUNTER → 2022-11-04 15:31 | Outpatient (BNVA) | payer BC, SELFPAY | PROVIDERS: PCP Nurse Practitioner Family; Visit Provider Urology | DX: Z13.89 Encounter for screening for other disorder (principal) ==

== ENCOUNTER 2022-11-14 07:39 | Outpatient (REF) | payer BC, SELFPAY ==
--- NOTE | ~2022-11-14 | CT_ITS ---
EXAMINATION: CT SOFT TISSUE NECK WITHOUT CONTRAST CLINICAL INFORMATION: Nontoxic single thyroid nodule. COMPARISON: Ultrasound thyroid from 10/20/2022. TECHNIQUE: Helical imaging was performed in the axial plane with generation of coronal and sagittal reformatted images. This CT examination was performed using dose optimization techniques as appropriate, variously including the following: *Automated exposure control *Adjustment of mA and/or kV according to patient size (this includes techniques or standardized protocols for targeted exams where dose is matched to indication/reason for exam; i.e. extremities or head) *Use of iterative reconstruction technique DLP: 416 mGy-cm FINDINGS: A homogeneously low density complex cystic lesion is again visible in the left thyroid lobe measuring 4 x 2.4 x 3.1 cm in size. No associated calcifications are seen. There is mild mass effect upon the trachea which is slightly deviated to the right of midline. No pathologically enlarged cervical lymph nodes are visible. The parotid and submandibular glands appear normal. No contour abnormality evident within the oral cavity, pharyngeal mucosal space, or larynx. The visualized mediastinum is normal. The imaged portions of the lungs are clear. No acute osseous abnormality is seen. Mild cervical spondylosis evident. The craniovertebral junction appears normal. Mild leftward curvature of the cervical spine evident. No periapical lucencies are seen in the dentition. The TMJs are normal. The middle ear cavities and mastoid air cells are clear. The orbits are normal. There is a suspected 2.5 cm retention cyst dependently in the left maxillary sinus with surrounding argj-xn-rdoylyyk mucosal thickening. Small fluid level and givh-[id number] mucosal thickening evident within the right maxillary antrum. Moderate ethmoid sinus disease evident with a moderate rightward nasal septal deviation. There is mild mucosal thickening with aerosolized secretions in the frontal and sphenoid sinus cavities. The imaged portions of the brain demonstrate no acute abnormality. CT/CT soft tissue neck wo IV con IMPRESSION: Approximate 4 x 2.4 x 3.1 cm low-density complex cystic lesion in the left thyroid lobe with mild rightward tracheal deviation, as correlated with the prior ultrasound study. No cervical adenopathy. Jdie-yt-[id number] mucosal thickening throughout the paranasal sinuses, more significantly affecting the ethmoid air cells with a dominant 2.5 cm retention cyst in the dependent left maxillary antrum.
== END 2022-11-14 07:40 | disposition home or self-care (01) ==
LOC: HO.CT 07:39
PROVIDERS: PCP Nurse Practitioner Family; Visit Provider Internal Medicine
DX: E04.1 Nontoxic single thyroid nodule (principal)
CPT/HCPCS: 70490

== ENCOUNTER 2022-12-23 07:05 | Outpatient (REF) | payer BC, SELFPAY ==
[2022-12-23 11:21] LABS: MANUAL DIFF FLAG NO
[2022-12-23 11:23] LABS: Appearance Urine Clear; Color Urine Yellow; Glucose Urine UA 500 mg/dL (Negative); Leukocyte Esterase Urine Negative (Negative); Nitrite Urine Negative (Negative); PH 5.5 (5.0-9.0); Urine Blood Negative (Negative); Urine Ketones Negative (Negative); Urine Protein Negative (Neg-Trace)
[2022-12-23 11:36] LABS: Basophils Absolute Auto 0.1 X10*3/uL (0.0-0.2); Basophils Percent Auto 1.8 % (0-2); Eosinophils Percent Auto 13.2 % (0-4); Hemoglobin 14.9 g/dl (14.0-18.0); Imm Gran Abs Auto 0.02 X10*3/uL (0.00-0.03); Imm Gran Pct Auto 0.3 % (0.0-0.4); Lymphocytes Absolute Auto 2.6 X10*3/uL (1.2-4.9); Lymphocytes Percent Auto 33.5 % (20-40); Mean Corpuscular HGB Conc 33.1 g/dl (31.0-36.0); Mean Corpuscular Hemoglobin 32.5 pg (27.0-33.0); Mean Platelet Volume 14.1 fL (9.4-12.4); Monocytes Absolute Auto 0.4 X10*3/uL (0.1-1.2); Monocytes Percent Auto 5.7 % (2-11); Neutrophils Absolute Auto 3.5 x10*3/uL (2.0-8.3); Neutrophils Percent Auto 45.5 % (45-73); Platelet Count 190 X10*3/uL (160-400); Red Blood Count 4.59 X10*6/uL (4.60-5.80); Red Cell Distribution Width 11.8 % (11.0-16.0); White Blood Count 7.7 X10*3/uL (4.8-10.8)
[2022-12-23 12:07] LABS: Alanine Aminotransferase 24 U/L (0-40); Albumin Level 4.3 g/dL (3.5-5.0); Alkaline Phosphatase 91 U/L (39-117); Anion Gap 10 (12-20); Aspartate Amino Transferase 14 U/L (5-37); Bilirubin Total 0.7 mg/dL (0.0-1.0); Blood Urea Nitrogen 18 mg/dL (9-16); Calcium 9.7 mg/dL (8.4-10.2); Carbon Dioxide 28 mmol/L (22-29); Chloride 105 mmol/L (96-108); Cholesterol 244 mg/dL; Estimated Glomerular Filt Rate > 60; Glucose Fasting 214 mg/dL (60-99); HDL Cholesterol 52 mg/dL; LDL Cholesterol Calculated 167 mg/dl; Potassium 4.1 mmol/L (3.3-5.1); Sodium 139 mmol/L (135-145); Total Protein 6.6 g/dL (6.5-8.0); Triglycerides 126 mg/dL
[2022-12-23 12:25] LABS: Prostate Specific Antigen Scr 0.35 ng/mL (<0.05-4.0); TSH reflex Free T4 1.31 uIU/mL (0.32-4.0)
== END 2022-12-23 07:06 | disposition home or self-care (01) ==
LOC: HO.HMGCLDS 07:05
PROVIDERS: PCP Nurse Practitioner Family; Visit Provider Nurse Practitioner Family
DX: Z12.5 Encounter for screening for malignant neoplasm of prostate (principal); E04.1 Nontoxic single thyroid nodule; J18.9 Pneumonia, unspecified organism; J45.901 Unspecified asthma with (acute) exacerbation; E78.5 Hyperlipidemia, unspecified
CPT/HCPCS: 36415; 80053; 80061; 81003; 84153; 84443; 85025

== ENCOUNTER 2023-01-02 08:06 | Outpatient (REF) | payer BC, SELFPAY ==
[2023-01-02 09:40] LABS: Estimated Average Glucose 232 mg/dL; Hemoglobin A1c % 9.7 %
[2023-01-02 09:45] LABS: Creatinine Urine 199.55 mg/dL; Microalbum/Creatinine Ratio Ur 11.5 ug/mg cr
[2023-01-02 09:58] LABS: Albumin Level 4.2 g/dL (3.5-5.0); Phosphorus 2.6 mg/dL (2.7-4.5)
[2023-01-02 10:06] LABS: Vitamin D 25-OH Total 42.4 ng/mL (>30)
[2023-01-07 15:32] LABS: Calcium (PTHI) 9.5 mg/dL (8.6-10.3); PTHI 39 pg/mL (16-77)
== END 2023-01-02 08:07 | disposition home or self-care (01) ==
LOC: HO.LAB 08:06
PROVIDERS: PCP Nurse Practitioner Family; Visit Provider Internal Medicine
DX: E04.1 Nontoxic single thyroid nodule (principal); E11.9 Type 2 diabetes mellitus without complications; E55.9 Vitamin D deficiency, unspecified
CPT/HCPCS: 36415; 82040; 82043; 82306; 83036; 83970; 84100

== ENCOUNTER 2023-01-15 09:34 | Outpatient (REF) | payer BC, SELFPAY ==
--- NOTE | 2023-01-15 09:59 | PM.OP ---
Brief Operative Note Date of Service: 01/15/23 Pre-op diagnosis: Multinodular Thyroid Procedure: This is doctor Genna Aguilera. This is an ultrasound-guided fine-needle aspiration report. Indication: Multinodular Thyroid Porcedure: Procedure was explained to the patient. Alternatives, the risk and benefits were discussed. Written consent was obtained. A time-out was also obtained. After sterile preparation, 1 ml of 1% lidocaine solution was applied subcutaneously for anesthetic effect. Then Fine-needle aspiration of a left mid pole 4.0 cm thyroid nodule was performed using direct ultrasound guidance to confirm accurate needle placement. Four aspirations were made using 27 gauge needles. An additional 2 aspirations were made using 25 guage needles. Samples were submitted for cytology. One pass was dedicated for [employer] sequencing analytic manager testing. The patient tolerated the procedure well. Aftercare instructions were provided. Impression: Uncomplicated fine needle aspiration biopsy of a left mid pole 4.0 cm thyroid nodule under ultrasound guidance. Surgeon: Genna Aguilera, DO Was an Schedule Planning Manager used for this Procedure?: No Estimated blood loss (mL): 0
[2023-01-15] MEDS: Lidocaine HCl 1 % MPF 5 ML VIAL SUBCUT (10:36)
== END 2023-01-15 09:35 | disposition home or self-care (01) ==
LOC: HO.US 09:34
PROVIDERS: PCP Nurse Practitioner Family; Visit Provider Internal Medicine
DX: E04.1 Nontoxic single thyroid nodule (principal)
CPT/HCPCS: 10005; 88172; 88173; 88177

== ENCOUNTER → 2023-02-09 07:36 | Outpatient (BNVA) | payer BC, SELFPAY | PROVIDERS: PCP Nurse Practitioner Family; Visit Provider Internal Medicine ==

== ENCOUNTER 2023-02-16 07:39 | Outpatient (AMB) | payer BC, SELFPAY ==
--- NOTE | 2023-02-16 07:39 | MHC.OFFVIS ---
Intake Intake Visit Reasons: FNA Results Allergies acetaminophen [Percocet] Allergy (Unknown, Verified 02/16/23 07:54) anaphylaxis oxycodone [Percocet] Allergy (Unknown, Verified 02/16/23 07:54) anaphylaxis, turn nascimento scallops Allergy (Unknown, Verified 02/16/23 07:54) UNKNOWN From PERCOCET Allergy (Unknown, Uncoded 02/16/23 07:54) DIFFICULTY BREATHING scallops Allergy (Unknown, Uncoded 02/16/23 07:54) unknown Medication List - Last Reconciled 02/16/23 by Genna Aguilera, albuterol sulfate 90 mcg/actuation 2 puffs inhalation Q6H PRN albuterol sulfate 2.5 mg (3 mL) inhalation Q6H PRN alcohol swabs (Alcohol Pads) 1 pad topical TID atorvastatin 20 mg PO BEDTIME 90 days blood sugar diagnostic (OneTouch Ultra Test strips) TID testing dapagliflozin propanediol (Farxiga) 5 mg PO DAILY fluticasone propion-salmeterol 500-50 mcg/dose 1 inh inhalation BID FreeStyle Alex 2 Sensor (flash glucose sensor) As directed to monitor blood sugars NS lancets (Onetouch Delica Safety Lancet) TID testing losartan 25 mg PO DAILY 90 days multivitamin 1 tab PO DAILY OneTouch Ultra2 Meter (blood-glucose meter) TID testing NS HPI HPI Comments History of Present Illness Details 53 YO Male with no significant PMHx who is seen in F/U for a thyroid nodule. He presented to the ED in late September 2022 for a respiratory issue and underwent CTA of the chest. This revealed an incidental finding of a L sided thyroid nodule. He then underwent a dedicated thyroid US 10/20/2022, which revealed a left mid pole 3.7 cm hypoechoic nodule. He underwent FNA biopsy of his left md pole 4.0 cm thyroid nodule 01/15/2023 with unfortunately nondiagnostic results. He presents today to review this. He had a CT of the neck 11/14/2022 which revealed mass effect with deviation of the trachea due to this large L lobe nodule. He was referred to Dr. Amador and has his initial consultation scheduled for this fall. He does report occasional dysphagia as well as hoarseness of his voice. He denies any tenderness in the neck or pressure while lying flat. He denies any symptoms of hyper or hypothyroidism. He denies a personal history of head or neck irradiation. He reports a history of thyroid disease in his paternal Grandmother, but he is unsure what type. Thyroid US: 10/20/2022 Right Thyroid Lobe: 5.7 x 2.1 x 1.9 cm, volume 11.9 mL. Parenchyma: The gland echotexture is homogeneous. Thyroid vascularity is normal. Left Thyroid Lobe: 5.7 x 4.0 x 3.4 cm, volume 40.5 mL. Parenchyma: The gland echotexture is homogeneous. Thyroid vascularity is normal. Isthmus: 0.3 cm in maximum AP dimension. Estimated total number of nodules greater than or equal to 1 cm: 1. Mental Health Advanced Practice Nurse nodules are described as follows: 1. Location: Left mid. ?? ? Size: 3.7 x 2.5 x 2.8 cm, volume 13.4 mL. ?? ? Nodule characteristics: ?? ? Composition: Cystic(0). ?? ? ACR TI-RADS total points: 0 ?? ? ACR TI-RADS category: 1 2. Location: Right mid. ?? ? Size: 0.8 x 0.7 x 0.7 cm, volume 0.2 mL. ?? ? Nodule characteristics: ?? ? Composition: Solid (2). ?? ? Echogenicity: Very hypoechoic (3). ?? ? Shape: Not taller than wide (0). ?? ? Margins: Smooth (0). ?? ? Echogenic Foci: None (0). ?? ? ACR TI-RADS total points: 5 ?? ? ACR TI-RADS category: 4 3. Location: Right mid. ?? ? Size: 0.4 x 0.3 x 0.4 cm, volume 0.02 mL. ?? ? Nodule characteristics: ?? ? Composition: Solid (2). ?? ? Echogenicity: Hypoechoic (2). ?? ? Shape: Not taller than wide (0). ?? ? Margins: Smooth (0). ?? ? Echogenic Foci: None (0). ?? ? ACR TI-RADS total points: 4 ?? ? ACR TI-RADS category: 4 4. Location: Right inferior. ?? ? Size: 0.4 x 0.4 x 0.4 cm, volume 0.03 mL. ?? ? Nodule characteristics: ?? ? Composition: Solid (2). ?? ? Echogenicity: Hypoechoic (2). ?? ? Shape: Not taller than wide (0). ?? ? Margins: Smooth (0). ?? ? Echogenic Foci: None (0). ?? ? ACR TI-RADS total points: 4 ?? ? ACR TI-RADS category: 4 NODES: No lymphadenopathy is seen in the tissue surrounding the thyroid gland. CT Neck: 11/14/2022 FINDINGS: A homogeneously low density complex cystic lesion is again visible in the left thyroid lobe measuring 4 x 2.4 x 3.1 cm in size. No associated calcifications are seen. There is mild mass effect upon the trachea which is slightly deviated to the right of midline. No pathologically enlarged cervical lymph nodes are visible. The parotid and submandibular glands appear normal. No contour abnormality evident within the oral cavity, pharyngeal mucosal space, or larynx. The visualized mediastinum is normal. The imaged portions of the lungs are clear. No acute osseous abnormality is seen. Mild cervical spondylosis evident. The craniovertebral junction appears normal. Mild leftward curvature of the cervical spine evident. No periapical lucencies are seen in the dentition. The TMJs are normal. The middle ear cavities and mastoid air cells are clear. The orbits are normal. There is a suspected 2.5 cm retention cyst dependently in the left maxillary sinus with surrounding vhjh-ji-vjgafxtd mucosal thickening. Small fluid level and odjz-nl-psekbmrf mucosal thickening evident within the right maxillary antrum. Moderate ethmoid sinus disease evident with a moderate rightward nasal septal deviation. There is mild mucosal thickening with aerosolized secretions in the frontal and sphenoid sinus cavities. The imaged portions of the brain demonstrate no acute abnormality. CT/CT soft tissue neck wo IV con IMPRESSION: Approximate 4 x 2.4 x 3.1 cm low-density complex cystic lesion in the left thyroid lobe with mild rightward tracheal deviation, as correlated with the prior ultrasound study. No cervical adenopathy. ? Jzkl-ev-svaoxxru mucosal thickening throughout the paranasal sinuses, more significantly affecting the ethmoid air cells with a dominant 2.5 cm retention cyst in the dependent left maxillary antrum. Labs: Laboratory Tests 12/23/22 01/02/23 01/02/23 07:08 08:48 08:48 Albumin 4.2 25-OH Vitamin D To justina 42.4 TSH 1.31 PTH Intact 39 Calcium (PTH Intac t) 9.5 PFSH Medical History Hx of renal calculi Hyperlipidemia Knee contusion Vitamin D deficiency Surgical History Hx of cholecystectomy Hx of lipoma Hx of lithotripsy Family History Father 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 High cholesterol HTN (hypertension) Heart attack Mother Pre-diabetes HTN (hypertension) Hx of removal of cyst Paternal Grandmother Thyroid disease Social History Household Members: Family Housing: House Do you presently have visiting nurse or other home services: No Alcohol intake: current Alcohol intake frequency: 0-2 drinks per day Alcohol type: beer Patient Tobacco Use Status: Current someday Tobacco user Tobacco use type: Cigar e-Cigarette/Vaping Use: Never Used Second Hand Smoke Exposure: No service: No Current occupational status: employed Cognitive needs: No Hearing needs: No Vision needs: No Assessment & Plan Assessment & Plan (1) Thyroid nodule: Code(s): E04.1 - Nontoxic single thyroid nodule Plan: Patient with a large left sided thyroid nodule. FNA was unfortunately nondiagnostic. Today we reviewed the options of repeating FNA vs proceeding directly to L thyroid lobectomy vs total thyroidectomy. He has opted to go directly for thyroidectomy. He has his initial consultation with Dr. Amador this fall. I will schedule him for F/U shortly after. We did review if his symptoms are to worsen at all, as he does have mass effect from this large L lobe nodule, to please notify me right away. He states he will do so. All questions were answered. He is in agreement with this plan of care. I spent 20 minutes in reviewing the record, seeing the patient and documenting in the medical record, including 5 minutes on the phone with the Patient. (2) Vitamin D deficiency: Code(s): E55.9 - Vitamin D deficiency, unspecified Plan: Vitamin D at goal. No changes. Telehealth Telehealth Location of provider rendering services: practice address Location of patient: address on file Patient Identification confirmed using: Name, : Yes Telehealth method: voice only Patient verbally consented to treatment: Yes Patient verbally consented to billing insurance company: Yes Patient informed of any privacy concerns related to visit: Yes Coding Level of Care Code Tele Est Pt Level 3 (12839) Diagnoses Thyroid nodule E04.1 Vitamin D deficiency E55.9
== END 2023-02-16 08:03 | disposition home or self-care (01) ==
LOC: HO.ENCR 07:39
PROVIDERS: PCP Nurse Practitioner Family; Visit Provider Internal Medicine
DX: E04.1 Nontoxic single thyroid nodule (principal); E55.9 Vitamin D deficiency, unspecified
CPT/HCPCS: 99441

== ENCOUNTER → 2023-02-16 07:39 | Outpatient (BNVA) | payer BC, SELFPAY | PROVIDERS: PCP Nurse Practitioner Family; Visit Provider Internal Medicine ==

== ENCOUNTER 2023-03-03 08:17 | Outpatient (REF) | payer BC, SELFPAY ==
--- NOTE | ~2023-03-03 | US_ITS ---
EXAMINATION: US RETROPERITONEAL LIMITED (RENAL ONLY) CLINICAL INFORMATION: Other disorders of calcium metabolism. COMPARISON: Renal ultrasound 10/20/2022 and 09/10/2021. CT abdomen and pelvis 11/20/2019. TECHNIQUE: Real-time imaging of the kidneys. FINDINGS: RIGHT KIDNEY: 11.6 x 5.2 x 5.5 cm (SAG x AP x TRV). The kidney is normal in size, contour, and echogenicity. Renal cortical thickness is normal. No calculi or focal parenchymal lesions. No hydronephrosis. LEFT KIDNEY: 11.0 x 6.0 x 5.5 cm (SAG x AP x TRV). The kidney is normal in size, contour, and echogenicity. Renal cortical thickness is normal. No calculi or focal parenchymal lesions. No hydronephrosis. US/US renal BI IMPRESSION: Normal renal ultrasound.
== END 2023-03-03 08:18 | disposition home or self-care (01) ==
LOC: HO.US 08:17
PROVIDERS: PCP Nurse Practitioner Family; Visit Provider Urology
DX: E83.59 Other disorders of calcium metabolism (principal)
CPT/HCPCS: 76775

== ENCOUNTER 2023-03-17 07:44 | Outpatient (AMB) | payer BC, SELFPAY ==
--- NOTE | 2023-03-17 07:56 | A.OFFVIS_ITS ---
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 Intake Note: NPV for SHANIQUA, was witnessed in the ER and at home Piping Supervisor Required: No Allergies acetaminophen [Percocet] Allergy (Unknown, Verified 03/17/23 07:58) anaphylaxis oxycodone [Percocet] Allergy (Unknown, Verified 03/17/23 07:58) anaphylaxis, turn nascimento scallops Allergy (Unknown, Verified 03/17/23 07:58) Ferver From PERCOCET Allergy (Unknown, Uncoded 03/17/23 07:58) DIFFICULTY BREATHING scallops Allergy (Unknown, Uncoded 03/17/23 07:58) unknown HPI HPI Comments History of Present Illness Details 53 y/o male patient presents for new in-person visit for sleep consultation. Pt reports loud snoring, and frequent gasping arousals. Pt reports that he was witnessed severe apnea events when he was admitted to hospital and was recommended to have sleep study. He tracks his sleep with Galaxy watch and it shows his O2 sat can be low to 70s. Pt also reports cyst on his thyroid and he was told that it partially blocked his trachea and appointment endocrine surgeon to remove it. Sleep questionnaire: Have you ever been diagnosed with a sleep disorder? No. Have you ever had a sleep study in the past? No. Have you ever been treated for a sleep disorder? No. Do you take medications for a sleep disorder? No. Do you snore? Yes, loudly. Do you wake up gasping at night? Yes. Do you have episodes of apneas? Yes. If yes, are they witnessed? Yes. Do you have episodes of nocturnal chest pain or dyspnea? No. Do you have difficulty initiating sleep? No. Do you have difficulty maintaining sleep? Yes. Do you wake up tired? Yes. Do you have headaches upon awakening? No. Do you wake up with dry mouth or throat? Yes. Do you have GERD? Yes. Do you have nocturia? Just once. Do you have nocturnal leg cramps? When he has excessive work out. Do you have symptoms of restless legs? No. Do you act out your dreams? No. Sleep hygiene questionnaire: What is your usual sleep routine? Usual bedtime is at 10:30-11 pm; Usual wake up time is at 7 am. Do you take naps? On occasion. Is your sleep environment cool, dark, and quiet? Yes. Do you exercise? Yes, walking and riding. Do you take caffeine or other stimulants? 1 cup of coffee in the morning. Do you use electronics in bed? No. What is your work schedule? 8 am to 4 pm. Hypersomnolence questionnaire: Do you have daytime tiredness or fatigue? Yes. Do you easily fall asleep when inactive? Yes. Have you ever had episodes of sudden weakness? No. Have you ever had episodes of sudden weakness associated with strong emotions? No. PFSH Medical History (Updated 03/17/23 @ 08:32 by Theodora Mckeon CNP) Hx of renal calculi Hyperlipidemia Knee contusion Vitamin D deficiency Surgical History (Updated 03/17/23 @ 08:00 by Alexandrea Flores CMA) H/O removal of cyst Hx of cholecystectomy Hx of lipoma Hx of lithotripsy Family History (Updated 03/17/23 @ 08:01 by Alexandrea Flores CMA) Father 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 High cholesterol HTN (hypertension) Heart attack Mother Pre-diabetes HTN (hypertension) Hx of removal of cyst Paternal Grandmother Thyroid disease Family/Other Testicular cancer Social History Household Members: Family Housing: House Do you presently have visiting nurse or other home services: No Alcohol intake: current Alcohol intake frequency: 0-2 drinks per day Alcohol type: beer Patient Tobacco Use Status: Current someday Tobacco user Tobacco use type: Cigar e-Cigarette/Vaping Use: Never Used Second Hand Smoke Exposure: No service: No Current occupational status: employed Cognitive needs: No Hearing needs: No Vision needs: No Questionnaire [place] Sleepiness Scale Questions Sitting and reading: slight chance of dozing Watching TV: moderate chance of dozing Sitting inactive in a theater, movie etc.: would never doze As a passenger in a car for an hour without break: slight chance of dozing Lying down in the afternoon when circumstances permit: high chance of dozing Sitting and talking to someone: would never doze Sitting quietly after lunch without alcohol: moderate chance of dozing In a car, while stopped for a few minutes in the traffic: would never doze ESS < 10: normal, ESS > 12: pathologic: 9 Review of Systems ENT Reports Normal hearing present Neuro Reports Normal hearing present Physical Exam Vital Signs: Last Vital Signs Pulse 76 03/17/23 08:01 BP 98/68 03/17/23 08:01 Pulse Ox 97 03/17/23 08:01 Oxygen Delivery Method Room Air 03/17/23 08:01 BMI result Body Mass Index 23.9 Const General: cooperative and tired appearing Nutritional Appearance: average body habitus Orientation/consciousness: patient oriented x3 Resp Effort & Inspection: normal respiratory effort and able to speak in complete sentences Neuro General: patient oriented x3, gait normal and moves all extremities Cranial nerves: Yes Bilaterally intact EOM present, Yes Normal facial strength present, Yes Midline tongue present, Yes Symmetric palate elevation present, Yes Normal hearing present, Yes Ability to bilaterally rotate head present and Yes Ability to bilaterally elevate shoulders present Cognition (Neuro): normal cognition Gait exam (Neuro): Normal gait present Motor exam (neuro): 5/5 motor strength present throughout, Pronator motor function not present and no tremor noted Psych Appearance: grossly normal Mental Status: mental status grossly normal Speech and movement: Normal speech and movement present Attitude: cooperative Assessment & Plan Assessment & Plan (1) Daytime sleepiness: Code(s): R40.0 - Somnolence (2) Sleep apnea: Code(s): G47.30 - Sleep apnea, unspecified Plan Pt is advised to undergo home sleep study to assess for sleep apnea. Will f/u with pt after study to discuss results and appropriate treatment options. Sleep hygiene education provided. Pt to call with any worsening concerns or questions. Orders: Orders RT home sleep study Today G47.30 - Sleep apnea, unspecified, R40.0 - Somnolence Coding Level of Care Code New Pt Level 4 (38212) Diagnoses Daytime sleepiness R40.0 Sleep apnea G47.30
[2023-03-17 08:01] VITALS: BP 98/68; PULSE 76; O2SAT 97; BMI 23.9
== END 2023-03-17 08:41 | disposition home or self-care (01) ==
PROVIDERS: PCP Nurse Practitioner Family; Visit Provider Nurse Practitioner Family
DX: R40.0 Somnolence (principal); G47.30 Sleep apnea, unspecified
CPT/HCPCS: 99204

== ENCOUNTER → 2023-03-17 07:44 | Outpatient (BNVA) | payer BC, SELFPAY | PROVIDERS: PCP Nurse Practitioner Family; Visit Provider Nurse Practitioner Family ==

== ENCOUNTER 2023-03-27 14:31 | Outpatient (AMB) | payer BC, SELFPAY ==
--- NOTE | 2023-03-27 14:41 | A.OFFVIS_ITS ---
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 Patient was sent to us by his PCP.? Patient had colonoscopy in 2016 for evaluation of UC. History of cholecystectomy in May of 2010. Patient was previously on mesalamine, has not been taking it for some time. Patient denies any abdominal pain or discomfort. Patient reports to have normal bowel movements no diarrhea, no bloody stools.? Denies history of difficulty with sedation or anesthesia in the past.? Patient is in the process of evaluation for sleep apnea. States that he has test in April. Denies any history of cardiac, renal or hepatic disease.?? History of asthma, no cardiac or respiratory symptoms. Recently diagnosed with diabetes. Patient states that he lost lots of weight and is eating healthy. No history of infectious? diseases like hepatitis A, B, C, HIV or tuberculosis.? Patient is not on any anticoagulation therapy. [facility] Medical History Vitamin D deficiency Knee contusion Hyperlipidemia Hx of renal calculi Surgical History H/O removal of cyst Hx of lipoma Hx of lithotripsy Hx of cholecystectomy Family History Father 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 High cholesterol HTN (hypertension) Heart attack Mother Pre-diabetes HTN (hypertension) Hx of removal of cyst Paternal Grandmother Thyroid disease Family/Other Testicular cancer Social History Household Members: Family Housing: House Do you presently have visiting nurse or other home services: No Alcohol intake: current Alcohol intake frequency: 0-2 drinks per day Alcohol type: beer Patient Tobacco Use Status: Current someday Tobacco user Tobacco use type: Cigar e-Cigarette/Vaping Use: Never Used Second Hand Smoke Exposure: No service: No Current occupational status: employed Cognitive needs: No Hearing needs: No Vision needs: No Review of Systems Const Denies weight gain and Denies weight loss ENT Reports no additional complaints, Denies dysphagia and Denies odynophagia Card Reports no additional complaints Resp Reports no additional complaints GI Denies abdominal pain, Denies belching, Denies melena, Denies bloating, Denies change in bowel habits, Denies dysphagia, Denies excessive flatus, Denies dyspepsia, Denies heartburn, Denies diarrhea, Denies loose stools, Denies nausea, Denies odynophagia and Denies vomiting Reports no additional complaints Musc Reports no additional complaints Neuro Reports no additional complaints Psych Reports no additional complaints Endo Reports no additional complaints Physical Exam Vital Signs: Last Vital Signs Pulse 83 03/27/23 14:46 BP 112/69 03/27/23 14:46 BMI result Body Mass Index 23.6 Const General: healthy appearing, no acute distress and well developed Nutritional Appearance: well nourished Orientation/consciousness: patient oriented x3 HEENT Head: Yes normal to inspection, Yes normocephalic and Yes atraumatic Face and sinus: Yes normal facial exam Mouth: Normal oral and palatal mucosa present Throat: Yes posterior oropharynx normal, Yes tonsils normal and Yes uvula midline Eyes General: appearance normal, both eyes and all related structures Neck Neck: Yes normal visual inspection, Yes full ROM and Yes trachea midline Thyroid: Thyroid normal Resp Effort & Inspection: normal respiratory effort, able to speak in complete sentences, no tracheal deviation and symmetric chest movement Auscultation: clear to auscultation bilaterally Cardio Rate: regular rate Heart sounds: S1 normal heart sound present and S2 normal heart sound present GI Inspection: Yes normal to inspection and No distended Palpation (GI): Soft to palpation, not firm, nontender and No hepatosplenomegaly present Auscultation: normal bowel sounds General: Yes no CVA tenderness Back/Spine/Pelvis Back: no CVA tenderness Skin General skin exam: elasticity normal, turgor normal and dry skin Neuro General: patient oriented x3 Psych Appearance: grossly normal Mental Status: mental status grossly normal Speech and movement: Normal speech and movement present Assessment & Plan Assessment & Plan (1) Screening for colon cancer: Code(s): Z12.11 - Encounter for screening for malignant neoplasm of colon Plan: Patient denies any GI, cardiac or respiratory symptoms.? Denies any issues with anesthesia in the past.? Denies any history of sleep apnea.? In the process of getting evaluated. Awaiting his test in April. No history infectious diseases in the past or present.? Not on any anticoagulation therapy.? No family or personal history of colon cancer or polyps.? Patient had colonoscopy in the past for ulcerative colitis. History of taking mesalamine. Patient reports that he has been feeling well. Denies any GI concerning symptoms. Patient denies melena, hematochezia, unintentional weight loss or ribbon like stools.? Discussed at length the pre-procedure,? prep, diet & medications as well as what to expect prior, during and after the procedure.?? Stressed the importance of good bowel prep. ?Recommended the use of Vaseline or Calmoseptine OTC & baby wipes with bowel movements to promote comfort.? ?Patient verbalizes understanding and agrees to plan of care.? He was given the opportunity to ask questions and all questions answered.? We will see him after the procedure.? Medications: New bisacodyl (Dulcolax (bisacodyl)) take 2 tabs at noon the day before your colonoscopy 10 mg (2 x 5 mg) PO ONCE 1 day 2 tabs 0RF Z12.11 - Encounter for screening for malignant neoplasm of colon polyethylene glycol 3350 (Miralax) As directed by gastroenterology department at [facility] 238 grams PO ONCE 238 grams 0RF Z12.11 - Encounter for screening for malignant neoplasm of colon Coding Level of Care Code New Pt Level 3 (13217) Diagnoses Screening for colon cancer Z12.11 Time Spent (min) 40 Comment 30 minutes spent with patient and additional 10 minutes spent reviewing his records
[2023-03-27 14:46] VITALS: BP 112/69; PULSE 83; BMI 23.6
== END 2023-03-27 15:15 | disposition home or self-care (01) ==
PROVIDERS: PCP Nurse Practitioner Family; Visit Provider Nurse Practitioner Family
DX: Z12.11 Encounter for screening for malignant neoplasm of colon (principal); Z01.818 Encounter for other preprocedural examination
CPT/HCPCS: S0285

== ENCOUNTER → 2023-03-27 14:31 | Outpatient (BNVA) | payer BC, SELFPAY | PROVIDERS: PCP Nurse Practitioner Family; Visit Provider Nurse Practitioner Family ==

== ENCOUNTER 2023-04-01 12:45 | Outpatient (AMB) | payer BC, SELFPAY ==
[2023-04-01 13:03] VITALS: BP 110/78; PULSE 81; O2SAT 98; BMI 23.9
--- NOTE | 2023-04-01 13:03 | A.OFFPC_ITS ---
Vital Signs 04/01/23 13:03 Height 6 ft 3 in Weight 191 lb 2 oz BMI 23.9 BP 110/78 Blood Pressure Location Rt brachial Position Sitting Pulse 81 Pulse Source Pulse Oximeter Pulse Oximetry (%) 98 Oxygen Delivery Method Room Air Intake Visit Reasons: 3 Month follow up Allergies acetaminophen [Percocet] Allergy (Unknown, Verified 04/01/23 16:42) anaphylaxis oxycodone [Percocet] Allergy (Unknown, Verified 04/01/23 16:42) anaphylaxis, turn nascimento scallops Allergy (Unknown, Verified 04/01/23 16:42) Ferver From PERCOCET Allergy (Unknown, Uncoded 04/01/23 16:42) DIFFICULTY BREATHING scallops Allergy (Unknown, Uncoded 04/01/23 16:42) unknown Medication List - Last Reconciled 04/01/23 by Wade Rangel [facility]- albuterol sulfate 90 mcg/actuation 2 puffs inhalation Q6H PRN albuterol sulfate 2.5 mg (3 mL) inhalation Q6H PRN alcohol swabs (Alcohol Pads) 1 pad topical TID atorvastatin 20 mg PO BEDTIME 90 days bisacodyl (Dulcolax (bisacodyl)) 10 mg (2 x 5 mg) PO ONCE 1 day blood sugar diagnostic (WISETIVIuch Ultra Test strips) TID testing dapagliflozin propanediol (Farxiga) 5 mg PO DAILY fluticasone propion-salmeterol 500-50 mcg/dose 1 inh inhalation BID fluticasone propionate 50 mcg/actuation (Flonase Allergy Relief) 1 spray intranasal BID PRN FreeStyle Alex 2 Sensor (flash glucose sensor) As directed to monitor blood sugars NS lancets (Onetouch Delica Safety Lancet) TID testing losartan 25 mg PO DAILY 90 days multivitamin 1 tab PO DAILY OneTouch Ultra2 Meter (blood-glucose meter) TID testing NS polyethylene glycol 3350 (Miralax) 238 grams PO ONCE Tobacco use date assessed: 04/01/23 Dental Screening Dental Screen Date: 04/01/23 Did you have a dental visit in the last 12 months?: No Did you have a dental problem in the last 6 months where you did not have access to dental care?: No Was dental information given to patient?: No HPI 3 Month follow up HPI Details Pt is a diabetic, on an ARB and a statin. A1C in office today is 5.9. Microalbumin is up to date. Denies polyuria, polydipsia, and neuropathy. Pt denies any signs and symptoms of hypoglycemia and does know how to correct it. Pt has a sensor, reports that his average blood sugar over the last two weeks was 148. Will refer for eye exam. [facility] Medical History Vitamin D deficiency Knee contusion Hyperlipidemia Hx of renal calculi Surgical History H/O removal of cyst Hx of lipoma Hx of lithotripsy Hx of cholecystectomy Family History Father 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 High cholesterol HTN (hypertension) Heart attack Mother Pre-diabetes HTN (hypertension) Hx of removal of cyst Paternal Grandmother Thyroid disease Family/Other Testicular cancer Social History Household Members: Family Housing: House Do you presently have visiting nurse or other home services: No Alcohol intake: current Alcohol intake frequency: 0-2 drinks per day Alcohol type: beer Patient Tobacco Use Status: Current someday Tobacco user Tobacco use type: Cigar e-Cigarette/Vaping Use: Never Used Second Hand Smoke Exposure: No service: No Current occupational status: employed Cognitive needs: No Hearing needs: No Vision needs: No Review of Systems Const Reports as per HPI Physical exam (Primary Care) Vital Signs: Last Vital Signs Pulse 81 04/01/23 13:03 BP 110/78 04/01/23 13:03 Pulse Ox 98 04/01/23 13:03 Oxygen Delivery Method Room Air 04/01/23 13:03 BMI result Body Mass Index 23.9 Tobacco/Smoking Status: Tobacco use Status Tobacco use date assessed 04/01/23 04/01/23 13:07 Patient Tobacco Use Status Current someday Tobacco 04/01/23 13:07 Tobacco use type Cigar 04/01/23 13:07 e-Cigarette/Vaping Use Never Used 04/01/23 13:07 Const General: cooperative Orientation/consciousness: patient oriented x3 Chest Chest palpation & inspection: normal inspection of the chest Resp Effort & Inspection: normal respiratory effort Auscultation: clear to auscultation bilaterally Cardio Rate: regular rate Rhythm: regular rhythm Heart sounds: S1 normal heart sound present and S2 normal heart sound present Neuro General: patient oriented x3 Psych Appearance: grossly normal Mental Status: mental status grossly normal Speech and movement: Normal speech and movement present Affect: normal affect Attitude: cooperative Thought process: Normal thought process present Thought content: Normal thought content present Insight: Good insight present (Psych) Judgement: Good judgement present (Psych) Results AMB Hemoglobin A1c AMB Hemoglobin A1c 5.9 % Last Edit by Roxi Cruz CMA on 04/01/23 13: 52 Results Reviewed Results Reviewed: Laboratory Last Values Hgb A1c (Clinic) 5.9 % (4.0-6.0) 04/01/23 13:28 Assessment and Plan Assessment & Plan (1) Diabetes: Code(s): E11.9 - Type 2 diabetes mellitus without complications Plan The patient agreed to the use of a medical consultant for this encounter. Scribed for JUJU Carrington by Shey Keen medical consultant, on 04/01/2023 at 13:20 EST. Orders: Orders Complete Blood Count Auto Diff Today E11.9 - Type 2 diabetes mellitus without complications UA CC w/rflx Micro + Cult Today E11.9 - Type 2 diabetes mellitus without complications Lipid Panel Today E11.9 - Type 2 diabetes mellitus without complications AMB Hemoglobin A1c Today E11.9 - Type 2 diabetes mellitus without complications Comprehensive [place]. Panel Fast Today E11.9 - Type 2 diabetes mellitus without complications TSH reflex Free T4 Today E11.9 - Type 2 diabetes mellitus without complications Referrals Optometry Referral E11.9 - Type 2 diabetes mellitus without complications Coding Level of Care Code Est Pt Level 3 (53885) Diagnoses Diabetes E11.9
== END 2023-04-01 14:38 | disposition home or self-care (01) ==
PROVIDERS: PCP Nurse Practitioner Family; Visit Provider Nurse Practitioner Family
DX: E11.9 Type 2 diabetes mellitus without complications (principal)
CPT/HCPCS: 83036; 99213

== ENCOUNTER → 2023-04-29 15:54 | Outpatient (REF) | payer BC, SELFPAY | LOC: HO.SL 15:54 | PROVIDERS: PCP Nurse Practitioner Family; Visit Provider Nurse Practitioner Family | DX: G47.30 Sleep apnea, unspecified (principal); R40.0 Somnolence | CPT/HCPCS: 95806 ==

== ENCOUNTER → 2023-04-29 16:02 | Outpatient (BNV) | payer BC, SELFPAY | PROVIDERS: PCP Nurse Practitioner Family; Visit Provider Psychiatry & Neurology Neurology | DX: G47.33 Obstructive sleep apnea (adult) (pediatric) (principal) | CPT/HCPCS: 95806 ==

== ENCOUNTER 2023-05-18 14:54 | Outpatient (AMB) | payer BC, SELFPAY ==
[2023-05-18 15:55] VITALS: BP 110/68; PULSE 104; O2SAT 97; BMI 24.4
--- NOTE | 2023-05-18 15:55 | MHC.OFFWIV ---
Intake Vital Signs 05/18/23 15:55 Height 6 ft 3 in Weight 195 lb 6 oz BMI 24.4 BP 110/68 Blood Pressure Location Lt brachial Position Sitting Pulse 104 H Pulse Source Pulse Oximeter Pulse Oximetry (%) 97 Oxygen Delivery Method Room Air Intake Visit Reasons: EP, cough, sinus congestion (masked) Intake Note: Pt presents to the office today for c/o cough, sinus congestion that started 05/16/23. Pt states he usually feels this way when he has a sinus infection. Patient Tobacco Use Status: Current someday Tobacco user Allergies acetaminophen [Percocet] Allergy (Unknown, Verified 05/18/23 16:15) anaphylaxis oxycodone [Percocet] Allergy (Unknown, Verified 05/18/23 16:15) anaphylaxis, turn nascimento scallops Allergy (Unknown, Verified 05/18/23 16:15) Ferver From PERCOCET Allergy (Unknown, Uncoded 05/18/23 16:15) DIFFICULTY BREATHING scallops Allergy (Unknown, Uncoded 05/18/23 16:15) unknown Medication List - Last Reconciled 05/18/23 by Heri Robison MD albuterol sulfate 90 mcg/actuation 2 puffs inhalation Q6H PRN albuterol sulfate 2.5 mg (3 mL) inhalation Q6H PRN alcohol swabs (Alcohol Pads) 1 pad topical TID atorvastatin 20 mg PO BEDTIME 90 days bisacodyl (Dulcolax (bisacodyl)) 10 mg (2 x 5 mg) PO ONCE 1 day blood sugar diagnostic (PlaySightTouch Ultra Test strips) TID testing dapagliflozin propanediol (Farxiga) 5 mg PO DAILY fluticasone propion-salmeterol 500-50 mcg/dose 1 inh inhalation BID fluticasone propionate 50 mcg/actuation (Flonase Allergy Relief) 1 spray intranasal BID PRN FreeStyle Alex 2 Sensor (flash glucose sensor) As directed to monitor blood sugars NS lancets (IndexTankuch Delica Safety Lancet) TID testing losartan 25 mg PO DAILY 90 days multivitamin 1 tab PO DAILY OneTouch Ultra2 Meter (blood-glucose meter) TID testing NS polyethylene glycol 3350 (Miralax) 238 grams PO ONCE HPI EP, cough, sinus congestion (masked) HPI Details Patient presents for a sick visit. Reporting symptoms of sinus congestion, sore throat and difficulty swallowing. Low-grade fever. No family member is sick. No recent travel. Patient reports symptoms of malaise and fatigue. [facility] Medical History Vitamin D deficiency Knee contusion Hyperlipidemia Hx of renal calculi Surgical History H/O removal of cyst Hx of lipoma Hx of lithotripsy Hx of cholecystectomy Family History Father 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 High cholesterol HTN (hypertension) Heart attack Mother Pre-diabetes HTN (hypertension) Hx of removal of cyst Paternal Grandmother Thyroid disease Family/Other Testicular cancer Social History Household Members: Family Housing: House Do you presently have visiting nurse or other home services: No Alcohol intake: current Alcohol intake frequency: 0-2 drinks per day Alcohol type: beer Patient Tobacco Use Status: Current someday Tobacco user Tobacco use type: Cigar e-Cigarette/Vaping Use: Never Used Second Hand Smoke Exposure: No service: No Current occupational status: employed Cognitive needs: No Hearing needs: No Vision needs: No Physical Exam Vital Signs: Last Vital Signs Pulse 104 H 05/18/23 15:55 BP 110/68 05/18/23 15:55 Pulse Ox 97 05/18/23 15:55 Oxygen Delivery Method Room Air 05/18/23 15:55 BMI result Body Mass Index 24.4 Const General: cooperative and healthy appearing Nutritional Appearance: well nourished Orientation/consciousness: patient oriented x3 Limitations: no limitations HEENT Head: Yes normal to inspection Eyes General: appearance normal, both eyes and all related structures Neck Neck: Yes normal visual inspection Chest Chest palpation & inspection: normal palpation of entire chest wall Resp Effort & Inspection: normal respiratory effort Neuro General: patient oriented x3 Assessment & Plan Assessment & Plan (1) Upper respiratory tract infection: Code(s): J06.9 - Acute upper respiratory infection, unspecified Plan: Antibiotics ordered. Increase fluid intake. Tylenol for aches and pains. If symptoms worsen, follow-up here for a recheck. Coding Level of Care Code Est Pt Level 3 (68619) Diagnoses Upper respiratory tract infection J06.9
== END 2023-05-18 16:18 | disposition home or self-care (01) ==
PROVIDERS: PCP Nurse Practitioner Family; Visit Provider Internal Medicine
DX: J06.9 Acute upper respiratory infection, unspecified (principal)
CPT/HCPCS: 99213

== ENCOUNTER 2023-07-22 08:45 | Outpatient (AMB) | payer BC, SELFPAY ==
--- NOTE | 2023-07-22 09:00 | MHC.OFFVIS ---
Intake Vital Signs 07/22/23 09:02 Height 6 ft 3 in Weight 197 lb 2 oz BMI 24.6 BP 122/70 Blood Pressure Location Lt brachial Position Sitting Respiration 16 Pulse 89 Pulse Source Pulse Oximeter Pulse Oximetry (%) 98 Oxygen Delivery Method Room Air Intake Visit Reasons: 4m f/u Sleep Apnea - Confirmed Intake Note: Pt presents for 4 month follow up for sleep apnea. [employer] Helper Required: No Allergies acetaminophen [Percocet] Allergy (Unknown, Verified 07/22/23 09:01) anaphylaxis oxycodone [Percocet] Allergy (Unknown, Verified 07/22/23 09:01) anaphylaxis, turn nascimento scallops Allergy (Unknown, Verified 07/22/23 09:01) Ferver From PERCOCET Allergy (Unknown, Uncoded 07/22/23 09:) DIFFICULTY BREATHING scallops Allergy (Unknown, Uncoded 07/22/23 09:) unknown HPI HPI Comments History of Present Illness Details 53 y/o male patient presents for follow up of sleep study. The home sleep study result was significant for mild degree of sleep apnea. The AHI was 11/hr and oxygen blaine was 77%. He started APAP [id number]. Pt tried full face mask, but it was very uncomfortable, and he changed to nasal mask. Also, he went to [place] for 2 weeks and did not use CPAP during that time. He restarted using CPAP last Thursday. He sleeps better with CPAP, and rested. However, he tasted blood and sore throat, he noticed that dry blood on his nose with nasal mask. The CPAP compliance and therapy response (05/11/23-06/09/23) reviewed. The usage days 16.7% and the average usage hours 2 hrs 28 min. The AHI was 6.9/hr. [facility] Medical History Vitamin D deficiency Knee contusion Hyperlipidemia Hx of renal calculi Surgical History H/O removal of cyst Hx of lipoma Hx of lithotripsy Hx of cholecystectomy Family History Father 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 High cholesterol HTN (hypertension) Heart attack Mother Pre-diabetes HTN (hypertension) Hx of removal of cyst Paternal Grandmother Thyroid disease Family/Other Testicular cancer Social History Household Members: Family Housing: House Do you presently have visiting nurse or other home services: No Alcohol intake: current Alcohol intake frequency: 0-2 drinks per day Alcohol type: beer Patient Tobacco Use Status: Current someday Tobacco user Tobacco use type: Cigar e-Cigarette/Vaping Use: Never Used Second Hand Smoke Exposure: No service: No Current occupational status: employed Cognitive needs: No Hearing needs: No Vision needs: No Review of Systems Const All systems reviewed & are unremarkable except as noted in HPI and below ENT Reports Normal hearing present Neuro Reports Normal hearing present Physical Exam Vital Signs: Last Vital Signs Pulse 89 07/22/23 09:02 Resp 16 07/22/23 09:02 BP 122/70 07/22/23 09:02 Pulse Ox 98 07/22/23 09:02 Oxygen Delivery Method Room Air 07/22/23 09:02 BMI result Body Mass Index 24.6 Const General: cooperative Nutritional Appearance: average body habitus Orientation/consciousness: patient oriented x3 Resp Effort & Inspection: normal respiratory effort and able to speak in complete sentences Neuro General: patient oriented x3, gait normal and moves all extremities Cranial nerves: Yes Bilaterally intact EOM present, Yes Normal facial strength present, Yes Midline tongue present, Yes Symmetric palate elevation present, Yes Normal hearing present, Yes Ability to bilaterally rotate head present and Yes Ability to bilaterally elevate shoulders present Cognition (Neuro): normal cognition Gait exam (Neuro): Normal gait present Motor exam (neuro): 5/5 motor strength present throughout, Pronator motor function not present and no tremor noted Psych Appearance: grossly normal Mental Status: mental status grossly normal Speech and movement: Normal speech and movement present Attitude: cooperative Assessment & Plan Assessment & Plan (1) Sleep apnea: Comment: Mild degree of sleep apnea. The AHI 11/hr, oxygen blaine was 77%. Code(s): G47.30 - Sleep apnea, unspecified Plan Continue to use APAP [id number]. Advised patient to increase humidifier setting to prevent dryness. Stressed compliance, use CPAP nightly and more than 4 hrs. Coding Level of Care Code Est Pt Level 3 (01476) Diagnoses Sleep apnea G47.30
[2023-07-22 09:02] VITALS: BP 122/70; PULSE 89; RESP 16; O2SAT 98; BMI 24.6
== END 2023-07-22 09:22 | disposition home or self-care (01) ==
PROVIDERS: PCP Nurse Practitioner Family; Visit Provider Nurse Practitioner Family
DX: G47.30 Sleep apnea, unspecified (principal)
CPT/HCPCS: 99213

== ENCOUNTER → 2023-07-22 08:45 | Outpatient (BNVA) | payer BC, SELFPAY | PROVIDERS: PCP Nurse Practitioner Family; Visit Provider Nurse Practitioner Family | DX: G47.30 Sleep apnea, unspecified (principal); R40.0 Somnolence ==

== ENCOUNTER 2023-07-30 07:45 | Outpatient (REF) | payer BC, SELFPAY ==
[2023-07-30 11:36] LABS: MANUAL DIFF FLAG NO
[2023-07-30 11:48] LABS: Basophils Absolute Auto 0.1 X10*3/uL (0.0-0.2); Basophils Percent Auto 1.1 % (0-2); Eosinophils Absolute Auto 0.4 X10*3/uL (0.0-0.4); Eosinophils Percent Auto 5.1 % (0-4); Hematocrit 45.4 % (42.0-52.0); Hemoglobin 14.8 g/dl (14.0-18.0); Imm Gran Abs Auto 0.04 X10*3/uL (0.00-0.03); Imm Gran Pct Auto 0.6 % (0.0-0.4); Lymphocytes Absolute Auto 2.2 X10*3/uL (1.2-4.9); Lymphocytes Percent Auto 31.1 % (20-40); Mean Corpuscular HGB Conc 32.6 g/dl (31.0-36.0); Mean Corpuscular Hemoglobin 31.9 pg (27.0-33.0); Mean Corpuscular Volume 97.8 fL (80.0-98.0); Monocytes Absolute Auto 0.5 X10*3/uL (0.1-1.2); Monocytes Percent Auto 7.1 % (2-11); Neutrophils Absolute Auto 3.9 x10*3/uL (2.0-8.3); Platelet Count 184 X10*3/uL (160-400); Red Blood Count 4.64 X10*6/uL (4.60-5.80); Red Cell Distribution Width 12.3 % (11.0-16.0); White Blood Count 7.1 X10*3/uL (4.8-10.8)
[2023-07-30 12:06] LABS: Appearance Urine Clear; Color Urine Yellow; Glucose Urine UA >=1000 mg/dL (Negative); Leukocyte Esterase Urine Negative (Negative); Nitrite Urine Negative (Negative); Specific Gravity - Urine 1.025 (1.005-1.025); UMIC TRIGGER UACC YES; Urine Blood Negative (Negative); Urine Ketones Negative (Negative); Urine Protein Negative (Neg-Trace)
[2023-07-30 12:13] LABS: Bacteria Urine None Seen (None Seen); Hyaline Casts Urine 0-2 /LPF (0-2); RBC Urine 0-2 /HPF (0-2); Squamous Epithelial Cell Urine 0-2 /HPF (0-2); WBC Urine 0-5 /HPF (0-5)
[2023-07-30 12:32] LABS: Alanine Aminotransferase 32 U/L (0-40); Albumin Level 4.5 g/dL (3.5-5.0); Alkaline Phosphatase 80 U/L (39-117); Anion Gap 10 (12-20); Aspartate Amino Transferase 19 U/L (5-37); Bilirubin Total 0.7 mg/dL (0.0-1.0); Blood Urea Nitrogen 18 mg/dL (9-16); Calcium 9.6 mg/dL (8.4-10.2); Carbon Dioxide 29 mmol/L (22-29); Chloride 104 mmol/L (96-108); Cholesterol 194 mg/dL (<200); Estimated Glomerular Filt Rate > 60; Glucose Fasting 115 mg/dL (60-99); HDL Cholesterol 61 mg/dL (>40); LDL Cholesterol Calculated 116 mg/dL (<100); Potassium 4.2 mmol/L (3.3-5.1); Sodium 139 mmol/L (135-145); Total Protein 7.2 g/dL (6.5-8.0); Triglycerides 86 mg/dL (<150)
[2023-07-30 12:34] LABS: TSH reflex Free T4 1.41 uIU/mL (0.32-4.0)
== END 2023-07-30 07:46 | disposition home or self-care (01) ==
LOC: HO.HMGCLDS 07:45
PROVIDERS: PCP Nurse Practitioner Family; Visit Provider Nurse Practitioner Family
DX: E11.9 Type 2 diabetes mellitus without complications (principal)
CPT/HCPCS: 36415; 80053; 80061; 81001; 81003; 84443; 85025

== ENCOUNTER 2023-08-04 12:46 | Outpatient (AMB) | payer BC, SELFPAY ==
--- NOTE | 2023-08-04 12:58 | A.OFFPC_ITS ---
Vital Signs 08/04/23 13:02 Weight 198 lb BP 120/78 Blood Pressure Location Rt brachial Position Sitting Intake Visit Reasons: Diabetes 4m FU Intake Note: Patient here for diabetes F/U. Pt states sugars at home have been stable. Allergies acetaminophen [Percocet] Allergy (Unknown, Verified 08/04/23 13:03) anaphylaxis oxycodone [Percocet] Allergy (Unknown, Verified 08/04/23 13:03) anaphylaxis, turn nascimento scallops Allergy (Unknown, Verified 08/04/23 13:03) Ferver From PERCOCET Allergy (Unknown, Uncoded 08/04/23 13:03) DIFFICULTY BREATHING scallops Allergy (Unknown, Uncoded 08/04/23 13:03) unknown Medication List - Last Reconciled 08/04/23 by JUJU Luu albuterol sulfate 90 mcg/actuation 2 puffs inhalation Q6H PRN albuterol sulfate 2.5 mg (3 mL) inhalation Q6H PRN alcohol swabs (Alcohol Pads) 1 pad topical TID atorvastatin 20 mg PO BEDTIME 90 days bisacodyl (Dulcolax (bisacodyl)) 10 mg (2 x 5 mg) PO ONCE 1 day blood sugar diagnostic (OneTouch Ultra Test strips) TID testing dapagliflozin propanediol (Farxiga) 5 mg PO DAILY fluticasone propion-salmeterol 500-50 mcg/dose 1 inh inhalation BID fluticasone propionate 50 mcg/actuation (Flonase Allergy Relief) 1 spray intranasal BID PRN FreeStyle Alex 2 Sensor (flash glucose sensor) As directed to monitor blood sugars NS lancets (Onetouch Delica Safety Lancet) TID testing losartan 25 mg PO DAILY 90 days multivitamin 1 tab PO DAILY OneTouch Ultra2 Meter (blood-glucose meter) TID testing NS polyethylene glycol 3350 (Miralax) 238 grams PO ONCE Tobacco use date assessed: 08/04/23 Dental Screening Dental Screen Date: 08/04/23 Did you have a dental visit in the last 12 months?: No Did you have a dental problem in the last 6 months where you did not have access to dental care?: No Was dental information given to patient?: Patient has dentist HPI Diabetes 4m FU HPI Details Pt is a diabetic, on an ARB and a statin. A1C in office today is 6.7. Microalbumin is up to date. Denies polyuria, polydipsia, and neuropathy. Pt den ies any signs and symptoms of hypoglycemia and does know how to correct it. Eye exam is scheduled for tomorrow. Refused flu and pneumo vaccines. Pt does not want to increase his farxiga currently. Pt is wearing a sensor, reports it works well. [facility] Medical History Vitamin D deficiency Knee contusion Hyperlipidemia Hx of renal calculi Surgical History H/O removal of cyst Hx of lipoma Hx of lithotripsy Hx of cholecystectomy Family History Father 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 High cholesterol HTN (hypertension) Heart attack Mother Pre-diabetes HTN (hypertension) Hx of removal of cyst Paternal Grandmother Thyroid disease Family/Other Testicular cancer Social History Household Members: Family Housing: House Do you presently have visiting nurse or other home services: No Alcohol intake: current Alcohol intake frequency: 0-2 drinks per day Alcohol type: beer Patient Tobacco Use Status: Current someday Tobacco user Tobacco use type: Cigar e-Cigarette/Vaping Use: Never Used Second Hand Smoke Exposure: No service: No Current occupational status: employed Cognitive needs: No Hearing needs: No Vision needs: No Questionnaire PHQ-9 Over the last 2 weeks, how often have you been bothered by any of the following problems? 1. Little interest or pleasure in doing things: not at all 2. Feeling down, depressed, or hopeless: not at all 3. Trouble falling or staying asleep, or sleeping too much: several days 4. Feeling tired or having little energy: several days 5. Poor appetite or overeating: not at all 6. Feeling bad about yourself - or that you are a failure or have let yourself or your family down: not at all 7. Trouble concentrating on things, such as reading the newspaper or watching television: not at all 8. Moving or speaking so slowly that other people could have noticed. Or the opposite - being so fidgety or restless that you have been moving around a lot more than usual: not at all 9. Thoughts that you would be better off or of hurting yourself in some way: not at all Total score: 2 Depression Screening Interpretation: Negative Depression Screening Done: Yes 07266 - PHQ-9 Billing: Yes Source: Developed by Drs. Ras Rosa, Elie Davis and colleagues, with an educational parviz from [employer]. AUDIT C Alcohol Use Questionnaire (AUDIT-C) 1. How often do you have a drink containing alcohol?: 4 or more times a week 2. How many drinks containing alcohol do you have on a typical day when you are drinking?: 1 or 2 3. How often do you have six or more drinks on one occasion?: Never Total Score: 4 DIAN-7 AMB Questionnaire DIAN-7 Date DIAN - 7 assessed: 08/04/23 Feeling nervous, anxious, or on edge: 0 = Not at all Not being able to stop or control worryin = Not at all Worrying too much about different things: 0 = Not at all Trouble relaxin = Not at all Being so restless that it is hard to sit still: 0 = Not at all Becoming easily annoyed or irritable: 0 = Not at all Feeling afraid as if something awful might happen: 0 = Not at all Total DIAN-7 score (0-4 normal; 5-9 mild; 10-14 moderate; 15-21 severe): 0 Source: Developed by Drs. Ras Rosa, Celi Bridges, Elie Vieira and colleagues, with an educational parviz from [employer]. DIAN-7 Assessment Billing DIAN-7 Assessment Tool: DIAN-7 Assessment 08024 Review of Systems Const Reports as per HPI Physical exam (Primary Care) Vital Signs: Last Vital Signs BP 120/78 08/04/23 13:02 Tobacco/Smoking Status: Tobacco use Status Tobacco use date assessed 08/04/23 08/04/23 13:05 Patient Tobacco Use Status Current someday Tobacco 08/04/23 13:00 Tobacco use type Cigar 08/04/23 13:00 e-Cigarette/Vaping Use Never Used 08/04/23 13:00 Depression Screening Interpretation: Negative Const General: cooperative Orientation/consciousness: patient oriented x3 Resp Effort & Inspection: normal respiratory effort Auscultation: clear to auscultation bilaterally Cardio Rate: regular rate Rhythm: regular rhythm Heart sounds: S1 normal heart sound present and S2 normal heart sound present Neuro General: patient oriented x3 Extrem Other: bilat feet: + sensation with use of monofilament Psych Appearance: grossly normal Mental Status: mental status grossly normal Speech and movement: Normal speech and movement present Affect: normal affect Attitude: cooperative Thought process: Normal thought process present Thought content: Normal thought content present Insight: Good insight present (Psych) Judgement: Good judgement present (Psych) Results AMB Hemoglobin A1c AMB Hemoglobin A1c 6.7 % Last Edit by TEN Dwyer on 08/04/23 13 :20 Results Reviewed Results Reviewed: Laboratory Last Values Hgb A1c (Clinic) 6.7 % (4.0-6.0) H 08/04/23 13:20 Assessment and Plan Assessment & Plan (1) Diabetes: Code(s): E11.9 - Type 2 diabetes mellitus without complications Orders: Orders Complete Blood Count Auto Diff Today E11.9 - Type 2 diabetes mellitus without complications TSH reflex Free T4 Today E11.9 - Type 2 diabetes mellitus without complications Lipid Panel Today E11.9 - Type 2 diabetes mellitus without complications AMB Hemoglobin A1c Today E11.9 - Type 2 diabetes mellitus without complications Comprehensive [place]. Panel Fast Today E11.9 - Type 2 diabetes mellitus without complications UA CC w/rflx Micro + Cult Today E11.9 - Type 2 diabetes mellitus without complications Coding Level of Care Code Est Pt Level 3 (64041) Diagnoses Diabetes E11.9 Additional Codes DIAN-7 Assessment Billing - DIAN-7 Assessment Tool: DIAN-7 Assessment 68466 ([id number])
[2023-08-04 13:02] VITALS: BP 120/78
== END 2023-08-04 13:21 | disposition home or self-care (01) ==
PROVIDERS: PCP Nurse Practitioner Family; Visit Provider Nurse Practitioner Family
DX: E11.9 Type 2 diabetes mellitus without complications (principal)
CPT/HCPCS: 83036; 99213

== ENCOUNTER 2023-08-27 08:06 | Outpatient (AMB) | payer BC, SELFPAY ==
[2023-08-27 08:21] VITALS: BP 128/72; PULSE 76; TEMP 36.9; O2SAT 98; BMI 24.7
--- NOTE | 2023-08-27 08:21 | MHC.OFFWIV ---
Intake Vital Signs 08/27/23 08:21 Height 6 ft 3 in Weight 198 lb BMI 24.7 BP 128/72 Blood Pressure Location Lt brachial Position Sitting Pulse 76 Pulse Source Pulse Oximeter Temp 98.5 F Temp Source Oral Pulse Oximetry (%) 98 Intake Visit Reasons: EST/sinus pressure(lobby masked) Intake Note: pt is here for c.o sinus pressure with a fever at home of 101.3 since thursday. pt stated he just had a partial thyrdoiectomy 2 weeks ago and after they took the stitches out he started having these symptoms Patient Tobacco Use Status: Current someday Tobacco user Allergies acetaminophen [Percocet] Allergy (Unknown, Verified 08/27/23 08:21) anaphylaxis oxycodone [Percocet] Allergy (Unknown, Verified 08/27/23 08:21) anaphylaxis, turn nascimento scallops Allergy (Unknown, Verified 08/27/23 08:21) Ferver From PERCOCET Allergy (Unknown, Uncoded 08/04/23 13:03) DIFFICULTY BREATHING scallops Allergy (Unknown, Uncoded 08/04/23 13:03) unknown Do you need a note to return to daycare/school/sports/work: Yes HPI HPI Comments History of Present Illness Details 53 y/o male patient presents to walk in clinic with c/o sinus pressure, cough productive and ear pain. Symptoms started Thu. Family with similar symptoms. [facility] Medical History (Updated 08/27/23 @ 08:47 by Latonya Small NP) Vitamin D deficiency Knee contusion Hyperlipidemia Hx of renal calculi Surgical History (Updated 08/16/23 @ 12:52 by JUJU Luu) History of lobectomy of thyroid H/O removal of cyst Hx of lipoma Hx of lithotripsy Hx of cholecystectomy Family History Father 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 High cholesterol HTN (hypertension) Heart attack Mother Pre-diabetes HTN (hypertension) Hx of removal of cyst Paternal Grandmother Thyroid disease Family/Other Testicular cancer Social History Household Members: Family Housing: House Do you presently have visiting nurse or other home services: No Alcohol intake: current Alcohol intake frequency: 0-2 drinks per day Alcohol type: beer Patient Tobacco Use Status: Current someday Tobacco user Tobacco use type: Cigar e-Cigarette/Vaping Use: Never Used Second Hand Smoke Exposure: No service: No Current occupational status: employed Cognitive needs: No Hearing needs: No Vision needs: No Review of Systems Const All systems reviewed & are unremarkable except as noted in HPI and below Physical Exam Vital Signs: Last Vital Signs Temp 98.5 F 08/27/23 08:21 Pulse 76 08/27/23 08:21 BP 128/72 08/27/23 08:21 Pulse Ox 98 08/27/23 08:21 BMI result Body Mass Index 24.7 Const General: comfortable HEENT Head: Yes normal to inspection Ears: TM abnormal bulging, wth effusion and erythematous General nose exam: Abnormal mucous membranes and turbinates present boggy and erythematous Mouth: other (scar on neck from Thyroid surgery) Throat: Yes posterior oropharynx normal Resp Effort & Inspection: normal respiratory effort, no audible wheezes and Actively coughing Auscultation: clear to auscultation bilaterally Cardio Rate: regular rate Rhythm: regular rhythm Assessment & Plan Assessment & Plan (1) Upper respiratory tract infection: Code(s): J06.9 - Acute upper respiratory infection, unspecified Qualifiers: URI type: unspecified URI Qualified Code(s): J06.9 - Acute upper respiratory infection, unspecified Plan: - Rest - Warm fluids - Abx (2) Cough in adult: Code(s): R05.9 - Cough, unspecified Plan: - OTC cough remedies Orders: Orders SARS-CoV2/FLU/RSV Today J06.9 - Acute upper respiratory infection, unspecified, R05.9 - Cough, unspecified Medications: New benzonatate 200 mg (2 x 100 mg) PO TID 30 caps 0RF cough R05.9 - Cough, unspecified amoxicillin 500 mg PO BID 10 days 20 caps 0RF J06.9 - Acute upper respiratory infection, unspecified, R05.9 - Cough, unspecified Coding Level of Care Code Est Pt Level 3 (08213) Diagnoses Upper respiratory tract infection, unspecified type J06.9 URI type: unspecified URI Cough in adult R05.9 Time Spent (min) 15
== END 2023-08-27 08:51 | disposition home or self-care (01) ==
PROVIDERS: PCP Nurse Practitioner Family; Visit Provider Nurse Practitioner Family
DX: J06.9 Acute upper respiratory infection, unspecified (principal); R05.9 Cough, unspecified
CPT/HCPCS: 99213

== ENCOUNTER 2023-08-27 13:07 | Outpatient (REF) | payer BC, SELFPAY ==
[2023-08-27 14:04] LABS: Influenza A PCR NEGATIVE (Negative); Influenza B PCR NEGATIVE (Negative); Resp Syncy Virus RNA Qual PCR NEGATIVE (Negative); SARS COV2 PCR INHOUSE NEGATIVE (Negative)
== END 2023-08-27 13:08 | disposition home or self-care (01) ==
LOC: HO.HMGCLNP 13:07
PROVIDERS: Visit Provider Nurse Practitioner Family
DX: Z11.52 Encounter for screening for COVID-19 (principal); Z20.822 Contact with and (suspected) exposure to COVID-19; J06.9 Acute upper respiratory infection, unspecified; R05.9 Cough, unspecified
CPT/HCPCS: 0241U

== ENCOUNTER 2023-09-14 07:23 | Day surgery (SDC) | payer BC, SELFPAY ==
[2023-09-09 14:45] VITALS: BMI 24.7
--- NOTE | 2023-09-10 09:27 | HO.ANESPROP2 ---
Documented by User: Jayshree Calixto NP 09/11/23 11:44 HPI - Anesthesia Eval Consult details Narrative: 53yo M for Colonoscopy Anesthesia Pre-Procedure Meds Is the patient on any of the following meds?: Any other SGL-1 drugs or drugs that delay gastric emptying (SGLT2 - farxiga) PMFSH Active Problems Active Problems: All Active Problems (Updated 09/09/23 @ 14:44 by Linda Moore RN) Upper respiratory tract infection (Acute) Diabetes (Acute) Daytime sleepiness (Acute) Sleep apnea (Acute) Screening for colon cancer (Acute) Newly diagnosed diabetes (Acute) Screening PSA (prostate specific antigen) (Acute) Thyroid nodule (Acute) Acute sinusitis (Acute) Calcium oxalate calculus (Acute) Hip pain (Acute) Unspecified asthma, uncomplicated (Acute) Vitamin D deficiency (Acute) Knee contusion (Acute) Hx of renal calculi (Acute) Past Medical History Medical History (Updated 09/09/23 @ 14:44 by Linda Moore RN) Sleep apnea Thyroid nodule Diabetes Vitamin D deficiency Knee contusion Hyperlipidemia Hx of renal calculi Family History Family History Father 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 High cholesterol HTN (hypertension) Heart attack Mother Pre-diabetes HTN (hypertension) Hx of removal of cyst Paternal Grandmother Thyroid disease Family/Other Testicular cancer Surgical History Surgical History (Updated 09/09/23 @ 14:46 by Linda Moore RN) H/O colonoscopy History of lobectomy of thyroid H/O removal of cyst Hx of lipoma Hx of lithotripsy Hx of cholecystectomy Social History Social History Household Members: Family Housing: House Do you presently have visiting nurse or other home services: No Alcohol intake: current Alcohol intake frequency: 0-2 drinks per day Alcohol type: beer Patient Tobacco Use Status: Current someday Tobacco user Tobacco use type: Cigar e-Cigarette/Vaping Use: Never Used Second Hand Smoke Exposure: No Advance Directives: No Advance Directives Information Provided: Yes service: No Current occupational status: employed Cognitive needs: No Hearing needs: No Vision needs: No Meds Allergies Allergy/AdvReac Type Severity Reaction Status Date / Time oxycodone [Percocet] Allergy Severe anaphylaxis, Verified 09/09/23 14:40 turn nascimento scallops Allergy Intermediate Fever Verified 09/09/23 14:40 Home Medications Medication Instructions Recorded Confirmed Last Taken Type multivitamin 1 tab PO DAILY 10/11/22 09/14/23 10/10/22 History fluticasone propionate 50 1 spray intranasal BID PRN nasal 04/01/23 09/14/23 Unknown History mcg/actuation nasal suffiness spray,suspension (Flonase Allergy Relief) Exam Height,Weight and Vital Signs: Height 6 ft 3 in Weight 89.811 kg Pertinent Lab Results Pertinent Lab Results: Laboratory Tests 07/30/23 07:58 WBC 7.1 Hgb 14.8 Hct 45.4 Plt Count 184 Sodium 139 Potassium 4.2 Chloride 104 Carbon Dioxide 29 BUN 18 H Creatinine 0.79 Assessment and Plan Assessment Anesthesia Assessment: Chart Reviewed Documented by User: Maicol Fish MD 09/14/23 08:14 HPI - Anesthesia Eval Anesthesia Pre-Procedure Meds If Yes to any meds - educate patient: Pt education - increased risk of aspiration PMFSH Past Medical History Medical History (Updated 09/09/23 @ 14:44 by Linda Moore RN) Sleep apnea Thyroid nodule Diabetes Vitamin D deficiency Knee contusion Hyperlipidemia Hx of renal calculi Functional capacity: independent ambulation Family History Family History Father 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 High cholesterol HTN (hypertension) Heart attack Mother Pre-diabetes HTN (hypertension) Hx of removal of cyst Paternal Grandmother Thyroid disease Family/Other Testicular cancer Family history of problems with anesthesia: No Surgical History Surgical History (Updated 09/09/23 @ 14:46 by Linda Moore RN) H/O colonoscopy History of lobectomy of thyroid H/O removal of cyst Hx of lipoma Hx of lithotripsy Hx of cholecystectomy History of Problems with Anesthesia: No Social History Social History Household Members: Family Housing: House Do you presently have visiting nurse or other home services: No Alcohol intake: current Alcohol intake frequency: 0-2 drinks per day Alcohol type: beer Patient Tobacco Use Status: Current someday Tobacco user Tobacco use type: Cigar e-Cigarette/Vaping Use: Never Used Second Hand Smoke Exposure: No Advance Directives: No Advance Directives Information Provided: Yes service: No Current occupational status: employed Cognitive needs: No Hearing needs: No Vision needs: No Meds Allergies Allergy/AdvReac Type Severity Reaction Status Date / Time oxycodone [Percocet] Allergy Severe anaphylaxis, Verified 09/09/23 14:40 turn nascimento scallops Allergy Intermediate Fever Verified 09/09/23 14:40 Home Medications Medication Instructions Recorded Confirmed Last Taken Type multivitamin 1 tab PO DAILY 10/11/22 09/14/23 10/10/22 History fluticasone propionate 50 1 spray intranasal BID PRN nasal 04/01/23 09/14/23 Unknown History mcg/actuation nasal suffiness spray,suspension (Flonase Allergy Relief) Exam Airway Mallampati Class: I TM Dist: >3cm Neck ROM: Full Loose/Missing/Broken Teeth: No Heart: ok Lungs: ok Assessment and Plan Assessment Anesthesia Assessment: Anesthesia Plan Discussed Final Anesthetic Review Family History of Problems with Anesthesia: No History of Problems with Anesthesia: No NPO: Yes ASA Class: III Final Preanesthetic Review: No Changes in Pt Med Stat, Meds/Allgs Chart Reviewed, Consent Obtained/Reviewed and Anes Risks/Benef Reviewed Patient Risk: Intermediate Procedure Risk: Low Anesthetic Plan Anesthetic Plan: MAC: and Agree w/ Assess. and Plan Disposition: Standard PACU
--- NOTE | 2023-09-14 07:34 | MHC.SHP ---
Pre-Procedural Eval Section A - 24 Hr Update-Section A only Date of Service: 09/14/23 The patient is an INPATIENT: No The patient has been examined within 24 hours of the surgical procedure. The History & Physical has been completed within 30 days and I have reviewed it.: No Section B - Complete if H&P > 30 days Chief Complaint: Colon cancer screening Relevant Family History (Specify if Yes): No Relevant Social History: Tobacco Use Present Medications: see Short Stay Collaborative assessment Medical History: Significant History (Vitamin D deficiency Knee contusion Hyperlipidemia Hx of renal calculi) History of Previous Operations: Relevant previous surgery/procedure and date(s) (H/O removal of cyst Hx of lipoma Hx of lithotripsy Hx of cholecystectomy) Allergies: Allergies Allergy/AdvReac Type Severity Reaction Status Date / Time oxycodone [Percocet] Allergy Severe anaphylaxis, Verified 09/09/23 14:40 turn nascimento scallops Allergy Intermediate Fever Verified 09/09/23 14:40 Review of Systems Sugical H&P ROS: Negative: Constitution, Cardiovascular, Respiratory and Gastrointestinal Exam Surgical H&P Exam: Normal: Heart, Normal: Lungs, Normal: Extremities and Normal: Abdomen Plan Diagnosis/Plan: Unchanged I have reviewed the history and physical and performed a pertinent physical examination on my patient. No changes have occurred unless specified. Time Spent With Patient Time: Total time managing care of this patient today ____ minutes.
[2023-09-14 07:55] VITALS: BP 129/77; PULSE 86; RESP 18; TEMP 36.1; O2SAT 97; BMI 25.7
[2023-09-14 07:57] LABS: Glucose, Whole Blood 140 mg/dL (60-115)
[2023-09-14] MEDS: Albuterol Sulfate (0.083%) 2.5 MG/3 ML VIAL.NEB INHALE (08:04)
[2023-09-14 08:07] VITALS: PULSE 86; RESP 14; O2SAT 96
[2023-09-14] MEDS: Lactated Ringers 1,000 ML 100 ML IVCONT (08:17)
--- NOTE | 2023-09-14 08:33 | P.OP_ITS ---
Operative Note Operative Note Date of Service: 09/14/23 Narrative: COLONOSCOPY TILL CECUM WITH BIOPSIES, SNARE POLYPECTOMY, SUBMUCOSAL INJECTION AND HEMOCLIP PLACEMENT Pre-op diagnosis: Colon cancer screening, history of ulcerative colitis Post-op diagnosis:? Colon polyps, diverticulosis, hemorrhoids Endoscopist:? Karen Carlton MD Anesthesia:?MAC Consent: Indications for the procedure and potential complications of bleeding, perforation, reaction to medications and missed diagnosis were discussed with the patient and informed consent was obtained. Instrument: Olympus CF H 190 L variable stiffness adult colonoscope Monitoring: Vital signs and clinical assessment, intermittent blood pressure monitoring, continuous EKG monitoring, Pulse oximetry and Carbon Dioxide monitoring were done throughout the procedure. Please see anesthesia flowsheet. Colon withdrawl time was 29 minutes. Procedure: The patient was placed in the left lateral decubitis position and pre-procedure medications were administered. After a digital rectal examination of the ano-rectum, the video colonoscope was inserted into the rectum and advanced through the colon to the cecum. The colonoscope was slowly withdrawn in a retrograde panoramic fashion and the colon mucosa was carefully examined including a retroflexed view of the rectum. Findings and interventions are described below. Procedure Difficulty: Without difficulty Findings: Terminal Ileum: Distal 5 cm was examined and appeared normal Cecum: A 12-15 mm flat polyp - raised with 4 cc of Eleview and removed with a hot snare. Polypectomy site was closed with 2 hemoclips Ascending Colon: Normal Transverse Colon: A 12-15 mm sessile polyp - removed with a hot snare Descending Colon: Normal Sigmoid Colon: Moderate diverticulosis Rectum: Normal Ano-rectum: Small internal hemorrhoids Colon preparation: Excellent after some irrigation [place] Bowel Preparation Scale Right colon; 3 Transverse colon: 3 Left colon; 3 (0 = Unprepared colon segment with mucosa not seen due to solid stool that cannot be cleared. 1 = Portion of mucosa of the colon segment seen, but other areas of the colon segment not well seen due to staining, residual stool and/or opaque liquid. 2 = Minor amount of residual staining, small fragments of stool and/or opaque liquid, but mucosa of colon segment seen well. 3 = Entire mucosa of colon segment seen well with no residual staining, small fragments of stool or opaque liquid) Impression and Post Procedure Diagnosis: Colonoscopy Findings: Two medium sized polyps removed Random biopsies were obtained from the ascending colon, transverse colon, descending colon, sigmoid colon and rectum to check for IBD. Moderate diverticulosis seen in the sigmoid colon Small hemorrhoids on retroflexed exam. Plan: Await pathology results Patient has an appointment on 09/21/23 in the GI Clinic with Bibi Martinez FNP-BC. Repeat Colonoscopy interval based on path results - in 3-5 years if polyps are adenomatous and 10 years if polyps are hyperplastic. Colon polyps and diverticulosis handouts were given in the discharge area
[2023-09-14 09:19] VITALS: BP 94/59; PULSE 94; RESP 16; TEMP 36.1; O2SAT 96
[2023-09-14 09:34] VITALS: BP 109/64; PULSE 92; RESP 16; O2SAT 94
== END 2023-09-14 10:01 | disposition home or self-care (01) ==
PROVIDERS: PCP Nurse Practitioner Family; Visit Provider Internal Medicine Gastroenterology
PROC: 0DJD8ZZ Inspection of Lower Intestinal Tract, Via Natural or Artificial Opening Endoscopic (ICD-10-PCS; CPT 45378; principal; 2023-09-14 08:30)
DX: Z12.11 Encounter for screening for malignant neoplasm of colon (principal); D12.3 Benign neoplasm of transverse colon; K63.5 Polyp of colon; K57.30 Diverticulosis of large intestine without perforation or abscess without bleeding; K64.8 Other hemorrhoids; E11.9 Type 2 diabetes mellitus without complications; E78.5 Hyperlipidemia, unspecified; J45.909 Unspecified asthma, uncomplicated; E55.9 Vitamin D deficiency, unspecified; G47.33 Obstructive sleep apnea (adult) (pediatric); Z87.442 Personal history of urinary calculi; Z79.51 Long term (current) use of inhaled steroids; F17.200 Nicotine dependence, unspecified, uncomplicated; Z90.49 Acquired absence of other specified parts of digestive tract; Z88.5 Allergy status to narcotic agent
CPT/HCPCS: 45385; 45380; 45381; 82947; 88305; 94640; J2704

== ENCOUNTER → 2023-09-14 07:23 | Outpatient (BNV) | payer BC, SELFPAY | PROVIDERS: PCP Nurse Practitioner Family; Visit Provider Internal Medicine Gastroenterology | DX: Z12.11 Encounter for screening for malignant neoplasm of colon (principal); K63.5 Polyp of colon; K57.90 Diverticulosis of intestine, part unspecified, without perforation or abscess without bleeding; K64.8 Other hemorrhoids | CPT/HCPCS: 45381; 45385 ==

== ENCOUNTER 2023-09-21 12:02 | Outpatient (AMB) | payer BC, SELFPAY ==
[2023-09-21 12:03] VITALS: BP 117/71; PULSE 75; BMI 24.1
--- NOTE | 2023-09-21 12:03 | A.OFFVIS_ITS ---
Intake Vital Signs 09/21/23 12:03 Height 6 ft 3 in Weight 193 lb 1.999 oz BMI 24.1 BP 117/71 Blood Pressure Location Rt brachial Position Sitting Pulse 75 Intake Visit Reasons: S/p colon Intake Note: Patient returns in follow up s/p colonoscopy on 09/14/23. CC: Reports doing well and denies having any GI concerns. 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 Denies any issues with anesthesia in the past.? Denies any history of sleep apnea.? In the process of getting evaluated. Awaiting his test in April. No history infectious diseases in the past or present.? Not on any anticoagulation therapy.? No family or personal history of colon cancer or polyps.? Patient had colonoscopy in the past for ulcerative colitis. History of taking mesalamine. Patient reports that he has been feeling well. Denies any GI concerning symptoms. Patient denies melena, hematochezia, unintentional weight loss or ribbon like stools.? Discussed at length the pre-procedure,? prep, diet & medications as well as what to expect prior, during and after the procedure.?? Stressed the importance of good bowel prep. ?Recommended the use of Vaseline or Calmoseptine OTC & baby wipes with bowel movements to promote comfort.? ?Patient verbalizes understanding and agrees to plan of care.? He was given the opportunity to ask questions and all questions answered.? We will see him after the procedure.? Plan Medications New bisacodyl (Dulcolax (bisacodyl)) take 2 tabs at noon the day before your colonoscopy 10 mg (2 x 5 mg) PO ONCE 1 day 2 tabs 0R F Z12.11 polyethylene glycol 3350 (Miralax) As directed by gastroenterology department at [facility] 238 grams PO ONCE 238 grams 0RF Z12.11 COLONOSCOPY Findings: Terminal Ileum: Distal 5 cm was examined and appeared normal Cecum: A 12-15 mm flat polyp - raised with 4 cc of Eleview and removed with a hot snare. Polypectomy site was closed with 2 hemoclips Ascending Colon: Normal Transverse Colon: A 12-15 mm sessile polyp - removed with a hot snare Descending Colon: Normal Sigmoid Colon: Moderate diverticulosis Rectum: Normal Ano-rectum: Small internal hemorrhoids Colon preparation: Excellent after some irrigation [place] Bowel Preparation Scale Right colon; 3 Transverse colon: 3 Left colon; 3 (0 = Unprepared colon segment with mucos a not seen due to solid stool that cannot be cleared. 1 = Portion of mucosa of the colon segme nt seen, but other areas of the colon segment not well seen due to staining, residual stool and/or opaque liquid. 2 = Minor amount of residual staining, s mall fragments of stool and/or opaque liquid, but mucosa of colon segment seen well. 3 = Entire mucosa of colon segment seen well with no residual staining, small fragments of stool or opaque liquid) Impression and Post Procedure Diagnosis: Colonoscopy Findings: Two medium sized polyps removed Random biopsies were obtained from the ascending colon, transverse colon, descending colon, sigmoid colon and rectum to check for IBD. Moderate diverticulosis seen in the sigmoid colon Small hemorrhoids on retroflexed exam. Plan: Repeat Colonoscopy interval based on path results - in 3-5 years if polyps are adenomatous and 10 years if polyps are hyperplastic. PATHOLOGY RESULTS Diagnosis A. Cecum, polypectomy: Colonic mucosa with prominent lymphoid aggregates. B. Colon, ascending, biopsy: Colonic mucosa within normal limits. C. Colon, transverse, biopsy: Colonic mucosa within normal limits. D. Colon, transverse, polypectomy: Fragments of tubular adenoma; negative for high-grade dysplasia or carcinoma. E. Colon, descending, biopsy: Colonic mucosa within normal limits. F. Colon, random sigmoid, biopsy: Colonic mucosa within normal limits. G. Rectum, biopsy: Colonic mucosa with prominent lymphoid aggregates; otherwise rectal mucosal within normal limits. COMMENT: No dysplasia or granulomata are seen TODAY'S VISIT: Patient is here today for follow-up and to discuss colonoscopy results. Patient denies any ill effects from prep, anesthesia or procedure itself. Patient reports that he has been doing well. One tubular adenoma found without high- grade dysplasia or carcinoma in transverse colon. Otherwise no abnormal findings on biopsy. Patient was found to have small internal hemorrhoids and moderate diverticulosis in sigmoid colon. Patient denies melena, hematochezia, unintentional weight loss or ribbon like stools. Patient denies any dyspepsia, dysphagia or odynophagia. Reports occasional reflux depending on what he eats uses Tums with effect [facility] Medical History (Updated 09/21/23 @ 12:29 by Bibi Martinez, [facility]) Diverticulosis Tubular adenoma of colon Sleep apnea Thyroid nodule Diabetes Vitamin D deficiency Knee contusion Hyperlipidemia Hx of renal calculi Surgical History H/O colonoscopy History of lobectomy of thyroid H/O removal of cyst Hx of lipoma Hx of lithotripsy Hx of cholecystectomy Family History Father 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 High cholesterol HTN (hypertension) Heart attack Mother Pre-diabetes HTN (hypertension) Hx of removal of cyst Paternal Grandmother Thyroid disease Family/Other Testicular cancer Social History Household Members: Family Housing: House Do you presently have visiting nurse or other home services: No Alcohol intake: current Alcohol intake frequency: 0-2 drinks per day Alcohol type: beer Patient Tobacco Use Status: Current someday Tobacco user Tobacco use type: Cigar e-Cigarette/Vaping Use: Never Used Second Hand Smoke Exposure: No service: No Current occupational status: employed Cognitive needs: No Hearing needs: No Vision needs: No Review of Systems Const Denies weight gain and Denies weight loss ENT Reports no additional complaints, Denies dysphagia and Denies odynophagia Card Reports no additional complaints Resp Reports no additional complaints GI Denies abdominal pain, Denies belching, Denies melena, Denies bloating, Denies change in bowel habits, Denies dysphagia, Denies excessive flatus, Denies dyspepsia, Denies heartburn, Denies diarrhea, Denies loose stools, Denies nausea, Denies odynophagia and Denies vomiting Reports no additional complaints Musc Reports no additional complaints Neuro Reports no additional complaints Psych Reports no additional complaints Endo Reports no additional complaints Physical Exam Vital Signs: Last Vital Signs Pulse 75 09/21/23 12:03 BP 117/71 09/21/23 12:03 BMI result Body Mass Index 24.1 Const General: healthy appearing, no acute distress and well developed Nutritional Appearance: well nourished Orientation/consciousness: patient oriented x3 Resp Effort & Inspection: normal respiratory effort, able to speak in complete sentences, no tracheal deviation and symmetric chest movement Auscultation: clear to auscultation bilaterally Cardio Rate: regular rate GI Inspection: Yes normal to inspection and No distended Palpation (GI): Soft to palpation, not firm, nontender and No hepatosplenomegaly present Auscultation: normal bowel sounds General: Yes no CVA tenderness Back/Spine/Pelvis Back: no CVA tenderness Skin General skin exam: elasticity normal, turgor normal and dry skin Neuro General: patient oriented x3 Psych Appearance: grossly normal Mental Status: mental status grossly normal Assessment & Plan Assessment & Plan (1) Tubular adenoma of colon: Code(s): D12.6 - Benign neoplasm of colon, unspecified (2) Diverticulosis: Code(s): K57.90 - Diverticulosis of intestine, part unspecified, without perforation or abscess without bleeding (3) Status post colonoscopy: Code(s): Z98.890 - Other specified postprocedural states Plan Colonoscopy and biopsy results discussed with patient. Tubular adenoma without high-grade dysplasia or carcinoma found in terminal ileum. Moderate diverticulosis seen in sigmoid colon. Discussed with patient the importance of high-fiber diet. List of food high in fiber given to patient. Patient may also take probiotics daily. Patient will return for colonoscopy in 3 years, sooner if clinically necessary. Patient is agreeable to current plan of care and verbalizes understanding of instructions. He was given the opportunity to ask questions and all questions answered. Thank you for allowing me to participate in his care Coding Level of Care Code Est Pt Level 3 (32739) Diagnoses Tubular adenoma of colon D12.6 Diverticulosis K57.90 Status post colonoscopy Z98.890 Time Spent (min) 30 Comment 20 minutes spent with patient and additional 10 minutes spent reviewing his records
== END 2023-09-21 13:53 | disposition home or self-care (01) ==
PROVIDERS: PCP Nurse Practitioner Family; Visit Provider Nurse Practitioner Family
DX: D12.6 Benign neoplasm of colon, unspecified (principal); K57.90 Diverticulosis of intestine, part unspecified, without perforation or abscess without bleeding; Z98.890 Other specified postprocedural states
CPT/HCPCS: 99213

== ENCOUNTER → 2023-09-21 12:02 | Outpatient (BNVA) | payer BC, SELFPAY | PROVIDERS: PCP Nurse Practitioner Family; Visit Provider Nurse Practitioner Family ==

== ENCOUNTER 2023-10-21 07:51 | Outpatient (AMB) | payer BC, SELFPAY ==
--- NOTE | 2023-10-21 08:12 | MHC.OFFVIS ---
Vital Signs 10/21/23 08:13 Height 6 ft 3 in Weight 192 lb BMI 24.0 BP 138/80 Blood Pressure Location Rt brachial Position Sitting Respiration 16 Pulse 76 Pulse Source Pulse Oximeter Intake Visit Reasons: October f/u - LVM w/address & doorbell Intake Note: Pt presents for 3 month follow up for sleep apnea. Pt states he's been ok. He admits to not using his CPAP recently as he had a partial thyroidectomy at the end of July. Undergraduate Intern Required: No Allergies oxycodone [Percocet] Allergy (Severe, Verified 10/21/23 08:13) anaphylaxis, turn nascimento scallops Allergy (Intermediate, Verified 10/21/23 08:13) Fever HPI Comments Details: 53 y/o male patient presents for follow up of SHANIQUA on CPAP. Pt reports he had a thyroidectomy done in July. He was told that not use CPAP during healing. He feels breathing better, does not feel something push in his throat. The home sleep study result was significant for mild degree of sleep apnea. The AHI was 11/hr and oxygen blaine was 77%. The CPAP compliance and therapy response (05/05/23-08/02/23) reviewed. He is on APAP [id number]. The usage days 23 days and the average usage hours 4 hrs. The AHI was 9.6/hr. [facility] Medical History (Updated 09/21/23 @ 12:29 by Bibi Martinez [facility]-) Diverticulosis Tubular adenoma of colon Sleep apnea Thyroid nodule Diabetes Vitamin D deficiency Knee contusion Hyperlipidemia Hx of renal calculi Surgical History (Updated 10/21/23 @ 08:18 by Martha Bray CMA) History of thyroidectomy, subtotal H/O colonoscopy History of lobectomy of thyroid H/O removal of cyst Hx of lipoma Hx of lithotripsy Hx of cholecystectomy Family History Father 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 High cholesterol HTN (hypertension) Heart attack Mother Pre-diabetes HTN (hypertension) Hx of removal of cyst Paternal Grandmother Thyroid disease Family/Other Testicular cancer Social History Household Members: Family Housing: House Do you presently have visiting nurse or other home services: No Alcohol intake: current Alcohol intake frequency: 0-2 drinks per day Alcohol type: beer Patient Tobacco Use Status: Current someday Tobacco user Tobacco use type: Cigar e-Cigarette/Vaping Use: Never Used Second Hand Smoke Exposure: No service: No Current occupational status: employed Cognitive needs: No Hearing needs: No Vision needs: No Review of Systems Const All systems reviewed & are unremarkable except as noted in HPI and below ENT Reports Normal hearing present Neuro Reports Normal hearing present Physical Exam Vital Signs: Last Vital Signs Pulse 76 10/21/23 08:13 Resp 16 10/21/23 08:13 BP 138/80 10/21/23 08:13 BMI result Body Mass Index 24.0 Const General: cooperative Nutritional Appearance: average body habitus Orientation/consciousness: patient oriented x3 Resp Effort & Inspection: normal respiratory effort and able to speak in complete sentences Neuro General: patient oriented x3, gait normal and moves all extremities Cranial nerves: Yes Bilaterally intact EOM present, Yes Normal facial strength present, Yes Midline tongue present, Yes Symmetric palate elevation present, Yes Normal hearing present, Yes Ability to bilaterally rotate head present and Yes Ability to bilaterally elevate shoulders present Cognition (Neuro): normal cognition Gait exam (Neuro): Normal gait present Motor exam (neuro): 5/5 motor strength present throughout, Pronator motor function not present and no tremor noted Psych Appearance: grossly normal Mental Status: mental status grossly normal Speech and movement: Normal speech and movement present Attitude: cooperative Assessment & Plan Assessment & Plan (1) Sleep apnea: Comment: Mild degree of sleep apnea. The AHI 11/hr, oxygen blaine was 77%. Code(s): G47.30 - Sleep apnea, unspecified Category: Medical Plan Advised patient to restart APAP at 5-20 cmH2O. Advised patient to increase humidifier setting to prevent dryness. Stressed compliance, use CPAP nightly and more than 4 hrs. Coding Level of Care Code Est Pt Level 3 (34368) Diagnoses Sleep apnea G47.30
[2023-10-21 08:13] VITALS: BP 138/80; PULSE 76; RESP 16; BMI 24.0
== END 2023-10-21 08:28 | disposition home or self-care (01) ==
PROVIDERS: PCP Nurse Practitioner Family; Visit Provider Nurse Practitioner Family
DX: G47.30 Sleep apnea, unspecified (principal)
CPT/HCPCS: 99213

== ENCOUNTER → 2023-10-21 07:51 | Outpatient (BNVA) | payer BC, SELFPAY | PROVIDERS: PCP Nurse Practitioner Family; Visit Provider Nurse Practitioner Family ==

== ENCOUNTER 2024-01-01 07:43 | Outpatient (REF) | payer BC, SELFPAY ==
[2024-01-01 10:21] LABS: Appearance Urine Clear; Color Urine Yellow; Glucose Urine UA >=1000 mg/dL (Negative); Leukocyte Esterase Urine Negative (Negative); Nitrite Urine Negative (Negative); Specific Gravity - Urine 1.025 (1.005-1.025); UMIC TRIGGER UACC YES; Urine Blood Negative (Negative); Urine Ketones Negative (Negative); Urine Protein Negative (Neg-Trace)
[2024-01-01 10:28] LABS: MANUAL DIFF FLAG NO
[2024-01-01 10:37] LABS: Bacteria Urine None Seen (None Seen); Hyaline Casts Urine 0-2 /LPF (0-2); RBC Urine 0-2 /HPF (0-2); Squamous Epithelial Cell Urine 0-2 /HPF (0-2); WBC Urine 0-5 /HPF (0-5)
[2024-01-01 10:39] LABS: Basophils Absolute Auto 0.1 X10*3/uL (0.0-0.2); Basophils Percent Auto 1.2 % (0-2); Eosinophils Absolute Auto 0.4 X10*3/uL (0.0-0.4); Eosinophils Percent Auto 5.1 % (0-4); Hematocrit 47.1 % (42.0-52.0); Imm Gran Abs Auto 0.03 X10*3/uL (0.00-0.03); Imm Gran Pct Auto 0.4 % (0.0-0.4); Lymphocytes Absolute Auto 2.3 X10*3/uL (1.2-4.9); Lymphocytes Percent Auto 30.7 % (20-40); Mean Corpuscular Hemoglobin 32.5 pg (27.0-33.0); Mean Corpuscular Volume 95.7 fL (80.0-98.0); Mean Platelet Volume 12.7 fL (9.4-12.4); Monocytes Absolute Auto 0.6 X10*3/uL (0.1-1.2); Monocytes Percent Auto 7.6 % (2-11); Neutrophils Absolute Auto 4.1 x10*3/uL (2.0-8.3); Platelet Count 217 X10*3/uL (160-400); Red Blood Count 4.92 X10*6/uL (4.60-5.80); Red Cell Distribution Width 12.2 % (11.0-16.0); White Blood Count 7.5 X10*3/uL (4.8-10.8)
[2024-01-01 11:12] LABS: Alanine Aminotransferase 29 U/L (0-40); Albumin Level 4.5 g/dL (3.5-5.0); Alkaline Phosphatase 86 U/L (39-117); Anion Gap 11 (12-20); Aspartate Amino Transferase 20 U/L (5-37); Bilirubin Total 0.6 mg/dL (0.0-1.0); Blood Urea Nitrogen 21 mg/dL (9-16); Calcium 9.8 mg/dL (8.4-10.2); Carbon Dioxide 27 mmol/L (22-29); Chloride 103 mmol/L (96-108); Cholesterol 237 mg/dL (<200); Estimated Glomerular Filt Rate > 60; Glucose Fasting 121 mg/dL (60-99); HDL Cholesterol 59 mg/dL (>40); LDL Cholesterol Calculated 160 mg/dL (<100); Sodium 137 mmol/L (135-145); Total Protein 7.3 g/dL (6.5-8.0); Triglycerides 94 mg/dL (<150)
[2024-01-01 11:26] LABS: TSH reflex Free T4 2.03 uIU/mL (0.32-4.0)
== END 2024-01-01 07:44 | disposition home or self-care (01) ==
LOC: HO.HMGCLDS 07:43
PROVIDERS: PCP Nurse Practitioner Family; Visit Provider Nurse Practitioner Family
DX: E11.9 Type 2 diabetes mellitus without complications (principal)
CPT/HCPCS: 36415; 80053; 80061; 81001; 84443; 85025

== ENCOUNTER 2024-01-06 14:22 | Outpatient (AMB) | payer BC, SELFPAY ==
--- NOTE | 2024-01-06 14:37 | MHC.PC.OV ---
Vital Signs 01/06/24 14:42 Height 6 ft 3 in Weight 198 lb BMI 24.7 BP 122/78 Blood Pressure Location Rt brachial Position Sitting Pulse 84 Pulse Source Pulse Oximeter Pulse Oximetry (%) 98 Oxygen Delivery Method Room Air Intake Visit Reasons: Annual PE Intake Note: pt is here for annual PE. Colonoscopy 09/14/23 Allergies oxycodone [Percocet] Allergy (Severe, Verified 01/06/24 14:59) anaphylaxis, turn nasciemnto scallops Allergy (Intermediate, Verified 01/06/24 14:59) Fever Medication List - Last Reconciled 01/06/24 by Juventino Johnson, PLANE TABLEMAN albuterol sulfate 90 mcg/actuation 2 puffs inhalation Q6H PRN albuterol sulfate 2.5 mg (3 mL) inhalation Q6H PRN alcohol swabs (Alcohol Pads) 1 pad topical TID atorvastatin 40 mg PO BEDTIME 90 days blood sugar diagnostic (OneTouch Ultra Test strips) TID testing dapagliflozin propanediol (Farxiga) 5 mg PO DAILY fluticasone propion-salmeterol 500-50 mcg/dose 1 inh inhalation BID fluticasone propionate 50 mcg/actuation (Flonase Allergy Relief) 1 spray intranasal BID PRN FreeStyle Alex 2 Sensor (flash glucose sensor) As directed to monitor blood sugars NS lancets ([employer]ycler[employer]ouch Delica Safety Lancet) TID testing losartan 25 mg PO DAILY 90 days multivitamin 1 tab PO DAILY OneTouch Ultra2 Meter (blood-glucose meter) TID testing NS Tobacco use date assessed: 01/06/24 Dental Screening Dental Screen Date: 01/06/24 Did you have a dental visit in the last 12 months?: No Did you have a dental problem in the last 6 months where you did not have access to dental care?: No Was dental information given to patient?: Patient has dentist HPI HPI Comments History of Present Illness Details Patient is a 53-year-old male who I am meeting for the 1st time in for physical exam Patient is up-to-date with Tdap next is due in 2026. Patient is up-to-date with colonoscopy recently performed 4 months prior to the appointment. Patient is due for PSA, will order. He has a past medical history significant for: Diabetes type 2: Currently utilizing dapaglaflozin 5 mg PO daily. Patient is due for microalbumin. Will order. 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 History of renal calculi: Has established care with urology. [facility] Medical History (Updated 01/06/24 @ 15:28 by SARINA Kilgore) Diverticulosis Tubular adenoma of colon Sleep apnea Thyroid nodule Diabetes Vitamin D deficiency Knee contusion Hyperlipidemia Hx of renal calculi Surgical History History of thyroidectomy, subtotal H/O colonoscopy History of lobectomy of thyroid H/O removal of cyst Hx of lipoma Hx of lithotripsy Hx of cholecystectomy Family History Father 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 High cholesterol HTN (hypertension) Heart attack Mother Pre-diabetes HTN (hypertension) Hx of removal of cyst Paternal Grandmother Thyroid disease Family/Other Testicular cancer Social History Household Members: Family Housing: House Do you presently have visiting nurse or other home services: No Alcohol intake: current Alcohol intake frequency: 0-2 drinks per day Alcohol type: beer Patient Tobacco Use Status: Current someday Tobacco user Tobacco use type: Cigar e-Cigarette/Vaping Use: Never Used Second Hand Smoke Exposure: No service: No Current occupational status: employed Cognitive needs: No Hearing needs: No Vision needs: No Questionnaire DIAN-7 AMB Questionnaire DIAN-7 Date DIAN - 7 assessed: 08/04/23 Source: Developed by Drs. Ras Rosa, Celi Bridges, Elie Vieira and colleagues, with an educational parviz from [employer]. Review of Systems Const All systems reviewed & are unremarkable except as noted in HPI and below Physical exam (Primary Care) Care Plan Goal for BP management: Patient blood pressure under control. Tobacco/Smoking Status: Tobacco use Status Tobacco use date assessed 01/06/24 01/06/24 14:39 Patient Tobacco Use Status Current someday Tobacco 01/06/24 14:37 Tobacco use type Cigar 01/06/24 14:37 e-Cigarette/Vaping Use Never Used 01/06/24 14:37 Advance Care Planning discussion: Exists, not on file Forms completed: Health Care Proxy Const Other: Appearance: Alert.? Oriented X3.? No acute distress.? Head: Normocephalic. Eyes: Sclera white. ENT: Pharynx normal.?TM intact and pearly nascimento. Neck: Normal inspection.? Neck supple.?Full ROM. CVS: Normal heart rate and rhythm.? Pulses normal.? Respiratory: No respiratory distress.? Breath sounds normal.? Abdomen: Soft and nontender.? : pt declined. Skin: Skin warm and dry.? Normal skin color.? Normal skin turgor.? Extremities: No lower extremity edema.? No calf ttp. 5/5 strength to bilateral upper and lower extremities Back: No midline tenderness, no C-spine tenderness, full range of motion, no CVA tenderness bilaterally Neuro: Oriented X 3.? No motor deficit.? No sensory deficit. CN 2-12 intact Results AMB Hemoglobin A1c AMB Hemoglobin A1c 6.8 % Last Edit by Jacinto Torres CMA on 01/06/24 14:56 Results Reviewed Results Reviewed: Sodium 137 135-145 mmol/L Potassium 4.0 3.3-5.1 mmol/L CL 103 96-108 mmol/L CO2 27 22-29 mmol/L Gap 11 L 12-20 BUN 21 H 9-16 mg/dL Creat 0.81 0.5-1.4 mg/dL EGFR > 60 NOTE: For -Bulgarian individuals, multiply the result by 1.210. Chronic Kidney Disease: Estimated GFR < 60 mL/min/1.73m2 Severe Kidney Disease: Estimated GFR < 15 mL/min/1.73m2 FBS 121 H 60-99 mg/dL A fasting glucose from 100-125 mg/dl is considered impaired (pre-diabetes). CA 9.8 8.4-10.2 mg/dL Total Bili 0.6 0.0-1.0 mg/dL AST (GOT) 20 5-37 U/L ALT (GPT) 29 0-40 U/L Protein, Total 7.3 6.5-8.0 g/dL Alb 4.5 3.5-5.0 g/dL Triglyceride 94 <150 mg/dL Desirable Triglyceride: less than 150 mg/dL Borderline High Triglyceride 150-199 mg/dL High Triglyceride: 200-499 mg/dL Very High Triglyceride: greater than or equal to 5OO mg/dL Cholesterol 237 H <200 mg/dL Desirable Cholesterol: less than 200 mg/dL Borderline High Cholesterol: 200-239 mg/dL High Cholesterol: greater than 239 mg/dL LDL Calculated 160 H <100 mg/dL Desirable LDL: less than 100 mg/dL Near Optimal/Above Optimal LDL: 110-129 mg/dL Borderline High LDL: 130-159 mg/dL High LDL: 160-189 mg/dL Very High LDL: greater than or equal to 190 mg/dL HDL 59 >40 mg/dL Desirable HDL: greater than 40 mg/dL Note: This HDL assay may give artificially low results in patients with liver disease. Alk Phos 86 39-117 U/L TSH 2.03 0.32-4.0 uIU/mL Assessment and Plan Assessment & Plan (1) Physical exam: Comment: Patient had recent labs drawn which we went over the appointment. Will also draw a microalbumin, vitamin-D, PSA. Patient has been educated about completing healthcare proxy form, he will take home and discuss with his partner. Has been educated on the importance of proper diet. Exercise. Code(s): Z00.00 - Encounter for general adult medical examination without abnormal findings (2) Diverticulosis: Comment: Discovered with recent colonoscopy 4 months prior. Patient educated on low residue diet. Has been educated on red flag symptoms and when to present to the office or the emergency room. Code(s): K57.90 - Diverticulosis of intestine, part unspecified, without perforation or abscess without bleeding (3) Sleep apnea: Comment: Mild degree of sleep apnea. The AHI 11/hr, oxygen blaine was 77%. Patient has CPAP machine. Has stabbed his care with Sleep Medicine Code(s): G47.30 - Sleep apnea, unspecified Qualifiers: Sleep apnea type: unspecified type Qualified Code(s): G47.30 - Sleep apnea, unspecified (4) Thyroid nodule: Comment: Patient had recent partial thyroidectomy with [facility] 5 months prior. Patient due for follow-up with Endocrinology, will refer. Code(s): E04.1 - Nontoxic single thyroid nodule (5) Calcium oxalate calculus: Comment: One incident of calcium oxalate calculus, patient has establish care with Urology. No episodes since Code(s): E83.59 - Other disorders of calcium metabolism (6) Vitamin D deficiency: Comment: Patient does report some lethargy during the day, history of vitamin-D deficiency. Will draw vitamin-D Code(s): E55.9 - Vitamin D deficiency, unspecified (7) Unspecified asthma, uncomplicated: Comment: Utilizing Wixela and albuterol sulfate with good effect. Utilizes albuterol maybe 1-2 times per month Code(s): J45.909 - Unspecified asthma, uncomplicated Qualifiers: Asthma severity: mild Asthma persistence: unspecified Qualified Code(s): J45.909 - Unspecified asthma, uncomplicated (8) Diabetes type 2, controlled: Comment: On Farxiga 5 mg p.o. daily. Patient's A1c in office 6.8 would like to continue to try to improve with diet and exercise. Patient does have meal plan developed with dietitian. Patient does not utilize metformin due to strong family history of adverse effects. Discussed with patient the need to increase Farxiga dose if A1c does not drop below 6.5. Patient states he understands Code(s): E11.9 - Type 2 diabetes mellitus without complications Qualifiers: 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 penitentiary insulin use: without penitentiary use 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 complication status: without complication Qualified Code(s): E11.9 - Type 2 diabetes mellitus without complications Plan: Draw labs. Plan Follow-up in 3 months Orders: Orders AMB Hemoglobin A1c Today E11.9 - Type 2 diabetes mellitus without complications Vitamin D 25-OH (D2 and D3) Today E55.9 - Vitamin D deficiency, unspecified PSA,Total (Free>4and<10) Today Z12.5 - Encounter for screening for malignant neoplasm of prostate Microalbumin, Random (w Creat) Today E11.9 - Type 2 diabetes mellitus without complications Referrals Endocrinology Referral E04.1 - Nontoxic single thyroid nodule Coding Level of Care Code Est Pt Prev Care 40-64y(20610) Diagnoses Physical exam Z00.00 Diverticulosis K57.90 Sleep apnea, unspecified type G47.30 Sleep apnea type: unspecified type Thyroid nodule E04.1 Calcium oxalate calculus E83.59 Vitamin D deficiency E55.9 Mild asthma without complication, unspecified whether persistent J45.909 Asthma severity: mild Asthma persistence: unspecified Controlled type 2 diabetes mellitus without complication, without long-term current use of insulin E11.9 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 penitentiary insulin use: without watermelon harvesting supervisor use 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 complication status: without complication Additional Codes Vital Signs *Quality* - Advance Care Planning discussion: Exists, not on file ([id number]) Time Spent (min) 25
[2024-01-06 14:42] VITALS: BP 122/78; PULSE 84; O2SAT 98; BMI 24.7
== END 2024-01-06 15:24 | disposition home or self-care (01) ==
PROVIDERS: PCP Nurse Practitioner Family; Visit Provider Nurse Practitioner Primary Care
DX: Z00.00 Encounter for general adult medical examination without abnormal findings (principal); E11.9 Type 2 diabetes mellitus without complications; K57.90 Diverticulosis of intestine, part unspecified, without perforation or abscess without bleeding; G47.30 Sleep apnea, unspecified; E04.1 Nontoxic single thyroid nodule; E83.59 Other disorders of calcium metabolism; E55.9 Vitamin D deficiency, unspecified; J45.909 Unspecified asthma, uncomplicated
CPT/HCPCS: 1123F; 83036; 99396

== ENCOUNTER 2024-01-14 15:13 | Outpatient (AMB) | payer BC, SELFPAY ==
--- NOTE | 2024-01-14 15:14 | MHC.OFFVIS ---
Vital Signs 01/14/24 15:15 Height 6 ft 3 in Weight 196 lb 10.437 oz BMI 24.6 BP 118/70 Blood Pressure Location Lt brachial Position Sitting Pulse 86 Pulse Source Pulse Oximeter Intake Visit Reasons: Nontoxic single thyroid nodule Intake Note: Patient present today for Nontoxic single thyroid nodule follow up visit. Director Of Field Sales Required: No Accompanied by: Self / Same As Patient Allergies oxycodone [Percocet] Allergy (Severe, Verified 01/14/24 15:22) anaphylaxis, turn nascimento scallops Allergy (Intermediate, Verified 01/14/24 15:22) Fever Medication List - Last Reconciled 01/14/24 by Ras Peralta MD albuterol sulfate 90 mcg/actuation 2 puffs inhalation Q6H PRN albuterol sulfate 2.5 mg (3 mL) inhalation Q6H PRN alcohol swabs (Alcohol Pads) 1 pad topical TID atorvastatin 40 mg PO BEDTIME 90 days blood sugar diagnostic (OneTouch Ultra Test strips) TID testing dapagliflozin propanediol (Farxiga) 5 mg PO DAILY fluticasone propion-salmeterol 500-50 mcg/dose 1 inh inhalation BID fluticasone propionate 50 mcg/actuation (Flonase Allergy Relief) 1 spray intranasal BID PRN FreeStyle Alex 2 Sensor (flash glucose sensor) As directed to monitor blood sugars NS lancets (Onetouch Delica Safety Lancet) TID testing losartan 25 mg PO DAILY 90 days multivitamin 1 tab PO DAILY OneTouch Ultra2 Meter (blood-glucose meter) TID testing NS HPI Comments Details: 53 YO Male with no significant PMHx who is seen in F/U for a thyroid nodule. The patient last saw Dr. Lovell on 02/16/2023 He presented to the ED in late September 2022 for a respiratory issue and underwent CTA of the chest. This revealed an incidental finding of a L sided thyroid nodule. He then underwent a dedicated thyroid US 10/20/2022, which revealed a left mid pole 3.7 cm hypoechoic nodule. He underwent FNA biopsy of his left md pole 4.0 cm thyroid nodule 01/15/2023 with unfortunately nondiagnostic results. He presents today to review this. He had a CT of the neck 11/14/2022 which revealed mass effect with deviation of the trachea due to this large L lobe nodule. He was referred to Dr. Amador and has his initial consultation scheduled for this fall. He does report occasional dysphagia as well as hoarseness of his voice. He denies any tenderness in the neck or pressure while lying flat. He denies any symptoms of hyper or hypothyroidism. He denies a personal history of head or neck irradiation. He reports a history of thyroid disease in his paternal Grandmother, but he is unsure what type. Thyroid US: 10/20/2022 Right Thyroid Lobe: 5.7 x 2.1 x 1.9 cm, volume 11.9 mL. Parenchyma: The gland echotexture is homogeneous. Thyroid vascularity is normal. Left Thyroid Lobe: 5.7 x 4.0 x 3.4 cm, volume 40.5 mL. Parenchyma: The gland echotexture is homogeneous. Thyroid vascularity is normal. Isthmus: 0.3 cm in maximum AP dimension. Estimated total number of nodules greater than or equal to 1 cm: 1. Online Affiliate Marketing Manager nodules are described as follows: 1. Location: Left mid. ?? ? Size: 3.7 x 2.5 x 2.8 cm, volume 13.4 mL. ?? ? Nodule characteristics: ?? ? Composition: Cystic(0). ?? ? ACR TI-RADS total points: 0 ?? ? ACR TI-RADS category: 1 2. Location: Right mid. ?? ? Size: 0.8 x 0.7 x 0.7 cm, volume 0.2 mL. ?? ? Nodule characteristics: ?? ? Composition: Solid (2). ?? ? Echogenicity: Very hypoechoic (3). ?? ? Shape: Not taller than wide (0). ?? ? Margins: Smooth (0). ?? ? Echogenic Foci: None (0). ?? ? ACR TI-RADS total points: 5 ?? ? ACR TI-RADS category: 4 3. Location: Right mid. ?? ? Size: 0.4 x 0.3 x 0.4 cm, volume 0.02 mL. ?? ? Nodule characteristics: ?? ? Composition: Solid (2). ?? ? Echogenicity: Hypoechoic (2). ?? ? Shape: Not taller than wide (0). ?? ? Margins: Smooth (0). ?? ? Echogenic Foci: None (0). ?? ? ACR TI-RADS total points: 4 ?? ? ACR TI-RADS category: 4 4. Location: Right inferior. ?? ? Size: 0.4 x 0.4 x 0.4 cm, volume 0.03 mL. ?? ? Nodule characteristics: ?? ? Composition: Solid (2). ?? ? Echogenicity: Hypoechoic (2). ?? ? Shape: Not taller than wide (0). ?? ? Margins: Smooth (0). ?? ? Echogenic Foci: None (0). ?? ? ACR TI-RADS total points: 4 ?? ? ACR TI-RADS category: 4 NODES: No lymphadenopathy is seen in the tissue surrounding the thyroid gland. CT Neck: 11/14/2022 FINDINGS: A homogeneously low density complex cystic lesion is again visible in the left thyroid lobe measuring 4 x 2.4 x 3.1 cm in size. No associated calcifications are seen. There is mild mass effect upon the trachea which is slightly deviated to the right of midline. No pathologically enlarged cervical lymph nodes are visible. The parotid and submandibular glands appear normal. No contour abnormality evident within the oral cavity, pharyngeal mucosal space, or larynx. The visualized mediastinum is normal. The imaged portions of the lungs are clear. No acute osseous abnormality is seen. Mild cervical spondylosis evident. The craniovertebral junction appears normal. Mild leftward curvature of the cervical spine evident. No periapical lucencies are seen in the dentition. The TMJs are normal. The middle ear cavities and mastoid air cells are clear. The orbits are normal. There is a suspected 2.5 cm retention cyst dependently in the left maxillary sinus with surrounding [id number] mucosal thickening. Small fluid level and [id number]-sb-[id number] mucosal thickening evident within the right maxillary antrum. Moderate ethmoid sinus disease evident with a moderate rightward nasal septal deviation. There is mild mucosal thickening with aerosolized secretions in the frontal and sphenoid sinus cavities. The imaged portions of the brain demonstrate no acute abnormality. CT/CT soft tissue neck wo IV con IMPRESSION: Approximate 4 x 2.4 x 3.1 cm low-density complex cystic lesion in the left thyroid lobe with mild rightward tracheal deviation, as correlated with the prior ultrasound study. No cervical adenopathy. ? [id number] mucosal thickening throughout the paranasal sinuses, more significantly affecting the ethmoid air cells with a dominant 2.5 cm retention cyst in the dependent left maxillary antrum. Labs: Laboratory Tests 12/23/22 01/02/23 01/02/23 07:08 08:48 08:48 Albumin 4.2 25-OH Vitamin D Total 42.4 TSH 1.31 PTH Intact 39 Calcium (PTH Intact) 9.5 He is status post left lobectomy with benign pathology [facility] Medical History Diverticulosis Tubular adenoma of colon Sleep apnea Thyroid nodule Diabetes Vitamin D deficiency Knee contusion Hyperlipidemia Hx of renal calculi Surgical History History of thyroidectomy, subtotal H/O colonoscopy History of lobectomy of thyroid H/O removal of cyst Hx of lipoma Hx of lithotripsy Hx of cholecystectomy Family History Father 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 High cholesterol HTN (hypertension) Heart attack Mother Pre-diabetes HTN (hypertension) Hx of removal of cyst Paternal Grandmother Thyroid disease Family/Other Testicular cancer Social History Household Members: Family Housing: House Do you presently have visiting nurse or other home services: No Alcohol intake: current Alcohol intake frequency: 0-2 drinks per day Alcohol type: beer Patient Tobacco Use Status: Current someday Tobacco user Tobacco use type: Cigar e-Cigarette/Vaping Use: Never Used Second Hand Smoke Exposure: No service: No Current occupational status: employed Cognitive needs: No Hearing needs: No Vision needs: No Physical Exam Vital Signs: Last Vital Signs Pulse 86 01/14/24 15:15 BP 118/70 01/14/24 15:15 BMI result Body Mass Index 24.6 Const Other: Healed scar status post left lobectomy. Right lobe was without the presence of palpable nodules Assessment & Plan Assessment & Plan (1) Thyroid nodule: Comment: Patient had recent partial thyroidectomy with [facility] 5 months prior. Patient due for follow-up with Endocrinology, will refer. Code(s): E04.1 - Nontoxic single thyroid nodule Category: Medical Plan: This is a 53-year-old white male with a history of left lobectomy due to large thyroid nodule. He appears to be clinically and biochemically euthyroid. Plan is that the patient returned to the care of his primary care provider returned back to endocrinology as needed. Perhaps a repeat TSH can be done on a six-month a yearly basis to screen for hypothyroidism. Coding Level of Care Code Est Pt Level 3 (11889) Diagnoses Thyroid nodule E04.1
[2024-01-14 15:15] VITALS: BP 118/70; PULSE 86; BMI 24.6
== END 2024-01-14 15:31 | disposition home or self-care (01) ==
PROVIDERS: PCP Nurse Practitioner Family; Visit Provider Internal Medicine Endocrinology, Diabetes & Metabolism
DX: E04.1 Nontoxic single thyroid nodule (principal)
CPT/HCPCS: 99213

== ENCOUNTER → 2024-01-14 15:13 | Outpatient (BNVA) | payer BC, SELFPAY | PROVIDERS: PCP Nurse Practitioner Family; Visit Provider Internal Medicine Endocrinology, Diabetes & Metabolism ==

== ENCOUNTER 2024-05-17 20:27 | Emergency (ER) | payer BC, SELFPAY ==
--- NOTE | 2024-05-17 | ECG_ITS ---
Test Reason : CP Blood Pressure : / mmHG Vent. Rate : 077 BPM Atrial Rate : 077 BPM P-R Int : 176 ms QRS Dur : 098 ms QT Int : 384 ms P-R-T Axes : 043 -34 035 degrees QTc Int : 434 ms Normal sinus rhythm Left axis deviation Abnormal ECG When compared with ECG of 11-OCT-2022 10:38, Vent. rate has decreased BY 47 BPM Referred By: Generic ED Physician Electronically Signed By:PORSCHE DAY
--- NOTE | ~2024-05-17 | XR_ITS ---
EXAMINATION: XR CHEST CLINICAL INFORMATION: Chest pain COMPARISON: Chest x-ray October 11, 2022 TECHNIQUE: Frontal view of the chest was obtained. FINDINGS: No significant abnormality is noted involving the heart, lungs, mediastinum, bony thorax or soft tissues. Surgical clips right upper quadrant of abdomen XR/XR chest 1V IMPRESSION: Unremarkable examination. Electronically signed by: Dexter Rooney MD 05/17/2024 10:30 PM EDT RP
[2024-05-17 20:36] VITALS: BP 131/87; PULSE 78; RESP 18; TEMP 36.7; O2SAT 98; BMI 24.4
--- NOTE | 2024-05-17 20:36 | ED.CHESTPAIN ---
HPI - Chest Pain General Chief Complaint: Chest Pain Stated Complaint: chest pain radiating down Rt arm Time Seen by Provider: 05/17/24 22:26 History of Present Illness ED Provider: Sharif YU narrative: The patient is a 54-year-old male with a history of type 2 diabetes and elevated cholesterol. There is also a family history of coronary disease. He says that his father had an MA at around the age of 60. The patient says that at around 16:30 this afternoon he was working at his computer when he started to experience pains in his right shoulder radiating down the right arm. He says that the pains were episodic and that the episodes were variable duration. Some of the episodes were quite brief, essentially instantaneous. The longest episodes lasted perhaps a minute. He has been experiencing several of these episodes per hour. There is no associated nausea, no associated shortness of breath, no associated diaphoresis. No particular chest pain. He does not feel ill otherwise. Related Data Home Medications ?Medication ?Instructions ?Recorded ?Confirmed multivitamin 1 tab PO DAILY 10/11/22 01/06/24 fluticasone propionate 50 1 spray intranasal BID PRN nasal 04/01/23 01/06/24 mcg/actuation nasal suffiness spray,suspension (Flonase Allergy Relief) Previous Rx's ?Medication ?Instructions ?Recorded OneTouch Ultra2 Meter #1 ea 12/25/22 (blood-glucose meter) albuterol sulfate 2.5 mg/3 mL 2.5 mg (3 mL) inhalation Q6H PRN 12/25/22 (0.083 %) solution for nebulization shortness of breath or wheezing #180 mL alcohol swabs (Alcohol Pads) 1 pad topical TID #200 ea 12/25/22 albuterol sulfate 90 mcg/actuation 2 puff inhalation Q6H PRN 12/26/22 aerosol inhaler shortness of breath or wheezing #6.7 grams blood sugar diagnostic (OneTouch #100 ea 12/26/22 Ultra Test strips) lancets 30 gauge (Onetouch Delica #100 ea 12/26/22 Safety Lancet) FreeStyle Alex 2 Sensor (flash #6 ea 12/10/23 glucose sensor) fluticasone 500 mcg-salmeterol 50 1 inh inhalation BID #180 ea 12/20/23 mcg/dose blistr powdr for inhalation atorvastatin 40 mg tablet 40 mg PO BEDTIME 90 days #90 tabs 01/04/24 losartan 25 mg tablet 25 mg PO DAILY 90 days #90 tabs 03/24/24 dapagliflozin propanediol 5 mg 5 mg PO DAILY #90 tabs 05/06/24 tablet (Farga) Allergies Allergy/AdvReac Type Severity Reaction Status Date / Time oxycodone [Percocet] Allergy Severe anaphylaxis, Verified 05/17/24 20:37 turn nascimento scallops Allergy Intermediate Fever Verified 05/17/24 20:37 Review of Systems Review of Systems: Yes all other systems are reviewed and are negative [facility] Past Medical History Medical History Diverticulosis Tubular adenoma of colon Sleep apnea Thyroid nodule Diabetes Vitamin D deficiency Knee contusion Hyperlipidemia Hx of renal calculi Surgical History History of thyroidectomy, subtotal H/O colonoscopy History of lobectomy of thyroid H/O removal of cyst Hx of lipoma Hx of lithotripsy Hx of cholecystectomy Family History Family History Father 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 High cholesterol HTN (hypertension) Heart attack Mother Pre-diabetes HTN (hypertension) Hx of removal of cyst Paternal Grandmother Thyroid disease Family/Other Testicular cancer Social History Social History Household Members: Family Housing: House Do you presently have visiting nurse or other home services: No Alcohol intake: current Alcohol intake frequency: 0-2 drinks per day Alcohol type: beer Patient Tobacco Use Status: Current someday Tobacco user Tobacco use type: Cigar Smoked in Last 30 Days: No e-Cigarette/Vaping Use: Never Used Second Hand Smoke Exposure: No Use of substances other than those prescribed or required for medical reasons: No Advance Directives: No Advance Directives Information Provided: No Do you have a plan to hurt others: No Plan service: No Current occupational status: employed Cognitive needs: No Hearing needs: No Vision needs: No Physical Exam Vital Signs: Vital Signs: Last Vital Signs Temp 97.9 F 05/18/24 00:19 Pulse 68 05/18/24 00:19 Resp 18 05/18/24 00:19 BP 108/58 L 05/18/24 00:19 Pulse Ox 97 05/18/24 00:19 O2 Del Method Room Air 05/18/24 00:19 BMI result Body Mass Index 24.4 Const: Other: The patient is awake, alert, pleasant, cooperative. He does not appear in any distress and he does not appear ill. HEENT: Other: Face is symmetrical. Mucous membranes moist. Eyes: General: appearance normal, both eyes and all related structures Neck: Neck: Yes no JVD Resp: Effort & Inspection: normal respiratory effort Auscultation: clear to auscultation bilaterally Cardio: Rate: regular rate Rhythm: regular rhythm Heart sounds: S1 normal heart sound present and S2 normal heart sound present GI: Other: The abdomen is soft and nontender. Skin: Other: The skin is pale and dry and unremarkable. Neuro: Other: The patient is awake and alert with normal mental status. Cranial nerves are grossly intact. He moves his extremities normally and appropriately and seems grossly neurologically intact. Extrem: Other: No peripheral edema. No calf swelling or tenderness. Course Course Course Narrative: This is a Rapid Medical Exam performed in triage by Flor Cobb PA-C. Full HPI, ROS and PE to be performed by primary ED provider. 54 yo M w/PMHx DM, presenting to the ED c/o constant CP radiating down RUE since 1630. Was at rest when pain started. Admits to associated gassy feeling. Denies N/V, SOB PE: Ambulating with steady gait, nontoxic appearing, talking in complete sentences, no respiratory distress Plan: EKG, labs, CXR Medical Decision Making Medical Decision Making MDM Narrative: The patient is a 54-year-old male who presents with a complaint of right shoulder pain radiating down his right arm. He was concerned that these symptoms might represent a warning signs of a heart attack. He describes intermittent pains in the right shoulder and arm that were frequent and of variable duration, sometimes lasting only instantaneously. The patient has risk factors for coronary disease including type 2 diabetes and elevated cholesterol and family history. He says his father had an MA at age 60. despite his risk factors my suspicion for acute coronary syndrome today is low. His description of the symptoms does not sound very suggestive of an anginal syndrome. He has a nonischemic EKG. He has 2 undetectable troponins. I think the patient may be reassured and discharged. He should follow up his PCP. If worse he should return to the emergency room. Lab Data 05/17/24 20:43 05/17/24 20:43 Labs: Lab Results 05/17/24 05/17/24 Range/Units 20:43 22:45 WBC 9.7 (4.8-10.8) X10*3/uL RBC 4.63 (4.60-5.80) X10*6/uL Hgb 15.1 (14.0-18.0) g/dl Hct 44.3 (42.0-52.0) % MCV 95.7 (80.0-98.0) fL MCH 32.6 (27.0-33.0) pg MCHC 34.1 (31.0-36.0) g/dl RDW 11.9 (11.0-16.0) % Plt Count 192 (160-400) X10*3/uL MPV 12.7 H (9.4-12.4) fL Immature Gran % (Auto) 0.3 (0.0-0.4) % Neut % (Auto) 59.2 (45-73) % Lymph % (Auto) 27.8 (20-40) % [place] % (Auto) 6.8 (2-11) % Eos % (Auto) 4.9 H (0-4) % Baso % (Auto) 1.0 (0-2) % Lymph # (Auto) 2.7 (1.2-4.9) X10*3/uL [place] # (Auto) 0.7 (0.1-1.2) X10*3/uL Eos # (Auto) 0.5 H (0.0-0.4) X10*3/uL Baso # (Auto) 0.1 (0.0-0.2) X10*3/uL Abs Immat Gran (auto) 0.03 (0.00-0.03) X10*3/uL Absolute Neuts (auto) 5.7 (2.0-8.3) x10*3/uL Absolute Nucleated RBC 0.000 (0.0-0.012) X10*3/uL Nucleated RBC % (auto) 0.0 (0.0-0.2) /100WBC PT 10.1 L (10.9-12.4) SEC INR 0.9 (0.9-1.1) Sodium 141 (135-145) mmol/L Potassium 3.9 (3.3-5.1) mmol/L Chloride 103 (96-108) mmol/L Carbon Dioxide 24 (22-29) mmol/L Anion Gap 18 (12-20) BUN 20 H (9-16) mg/dL Creatinine 0.85 (0.5-1.4) mg/dL Estim Creat Clear Calc 120.1 Estimated GFR > 60 Random Glucose 230 H (60-115) mg/dL Calcium 9.6 (8.4-10.2) mg/dL Magnesium 2.3 (1.6-2.6) mg/dL Total Bilirubin 0.2 (0.0-1.0) mg/dL Direct Bilirubin < 0.2 (0.0-0.5) mg/dL AST 23 (5-37) U/L ALT 44 H (0-40) U/L Alkaline Phosphatase 92 (39-117) U/L Troponin I High Sens < 2.7 < 2.7 (<3.5-35.0) ng/L Total Protein 7.1 (6.5-8.0) g/dL Albumin 4.5 (3.5-5.0) g/dL Discharge Plan Discharge Clinical Impression: Pain in right arm Patient Disposition: Home, Self-Care Additional Instructions: Your testing in the emergency room today is very reassuring. I do not think the symptoms you have been experiencing in your right arm or the warning signs of a heart attack. Please continue all of your regular medications. Please make a follow up appointment your regular doctor to discuss this episode further. Although it seems unlikely that your symptoms today represent the warning of a heart attack we nevertheless recommend that if you feel significantly worse at any time you return to the emergency room for another evaluation. Prescriptions: No Action albuterol sulfate 2.5 mg /3 mL (0.083 %) solution for nebulization 2.5 mg inhalation Q6H PRN (Reason: shortness of breath or wheezing) Qty: 180 0RF alcohol swabs [Alcohol Pads] Pads, Medicated 1 pad topical TID Qty: 200 0RF (DME) blood-glucose meter [[employer] Ultra2 Meter] Misc See Rx Instructions .Route Qty: 1 0RF Rx Instructions: TID testing albuterol sulfate 90 mcg/actuation HFA aerosol inhaler 2 puff inhalation Q6H PRN (Reason: shortness of breath or wheezing) Qty: 6.7 1RF (DME) lancets [Onetouch Delica Safety Lancet] 30 gauge misc See Rx Instructions .Route Qty: 100 5RF Rx Instructions: TID testing (DME) OneTouch Ultra Test Strip See Rx Instructions .Route Qty: 100 5RF Rx Instructions: TID testing (DME) FreeStyle Alex 2 Sensor Kit See Rx Instructions .Route Qty: 6 1RF Rx Instructions: As directed to monitor blood sugars fluticasone propion-salmeterol 500-50 mcg/dose blister with device 1 inh inhalation BID Qty: 180 1RF atorvastatin 40 mg tablet 40 mg PO BEDTIME 90 Days Qty: 90 1RF losartan 25 mg tablet 25 mg PO DAILY 90 Days Qty: 90 1RF Farxiga 5 mg tablet 5 mg PO DAILY Qty: 90 1RF multivitamin Tablet 1 tab PO DAILY fluticasone propionate [Flonase Allergy Relief] 50 mcg/actuation spray,suspension 1 spray intranasal BID PRN (Reason: nasal suffiness) Rx Instructions: administer into each nostril Referrals: Wade Rangel FNP-BC [Primary Care Provider] - (Right arm discomfort) Interventions: ED Discharge Assessment Last Done: 05/18/24 00:19 Discharge Date/Time: 05/17/24 23:36 Print Language: Latvian
[2024-05-17 20:48] LABS: MANUAL DIFF FLAG NO
[2024-05-17 20:50] LABS: Basophils Absolute Auto 0.1 X10*3/uL (0.0-0.2); Eosinophils Absolute Auto 0.5 X10*3/uL (0.0-0.4); Eosinophils Percent Auto 4.9 % (0-4); Hematocrit 44.3 % (42.0-52.0); Hemoglobin 15.1 g/dl (14.0-18.0); Imm Gran Abs Auto 0.03 X10*3/uL (0.00-0.03); Imm Gran Pct Auto 0.3 % (0.0-0.4); Lymphocytes Absolute Auto 2.7 X10*3/uL (1.2-4.9); Lymphocytes Percent Auto 27.8 % (20-40); Mean Corpuscular HGB Conc 34.1 g/dl (31.0-36.0); Mean Corpuscular Hemoglobin 32.6 pg (27.0-33.0); Mean Corpuscular Volume 95.7 fL (80.0-98.0); Mean Platelet Volume 12.7 fL (9.4-12.4); Monocytes Absolute Auto 0.7 X10*3/uL (0.1-1.2); Monocytes Percent Auto 6.8 % (2-11); Neutrophils Absolute Auto 5.7 x10*3/uL (2.0-8.3); Neutrophils Percent Auto 59.2 % (45-73); Platelet Count 192 X10*3/uL (160-400); Red Blood Count 4.63 X10*6/uL (4.60-5.80); Red Cell Distribution Width 11.9 % (11.0-16.0); White Blood Count 9.7 X10*3/uL (4.8-10.8)
[2024-05-17 21:01] LABS: INTERNATIONAL NORM RATIO 0.9 (0.9-1.1); Prothrombin Time 10.1 SEC (10.9-12.4)
[2024-05-17 21:05] LABS: Alanine Aminotransferase 44 U/L (0-40); Albumin Level 4.5 g/dL (3.5-5.0); Alkaline Phosphatase 92 U/L (39-117); Anion Gap 18 (12-20); Aspartate Amino Transferase 23 U/L (5-37); Bilirubin Direct < 0.2 mg/dL (0.0-0.5); Bilirubin Total 0.2 mg/dL (0.0-1.0); Blood Urea Nitrogen 20 mg/dL (9-16); Calcium 9.6 mg/dL (8.4-10.2); Carbon Dioxide 24 mmol/L (22-29); Chloride 103 mmol/L (96-108); Creatinine Clr Calc Pharmacy 120.1; Estimated Glomerular Filt Rate > 60; Glucose Random 230 mg/dL (60-115); Magnesium 2.3 mg/dL (1.6-2.6); Potassium 3.9 mmol/L (3.3-5.1); Sodium 141 mmol/L (135-145); Total Protein 7.1 g/dL (6.5-8.0)
[2024-05-17 21:15] LABS: Troponin-I High Sensitivity < 2.7 ng/L (<3.5-35.0)
[2024-05-17 22:00] VITALS: BP 110/61; PULSE 70; RESP 19; TEMP 36.6; O2SAT 98
[2024-05-17 23:10] LABS: Troponin-I High Sensitivity < 2.7 ng/L (<3.5-35.0)
[2024-05-18 00:19] VITALS: BP 108/58; PULSE 68; RESP 18; TEMP 36.6; O2SAT 97
== END 2024-05-17 23:36 | disposition home or self-care (01) ==
PROVIDERS: Physician Assistant; Emergency Provider Emergency Medicine; PCP Nurse Practitioner Family
DX: M25.511 Pain in right shoulder (principal); R07.89 Other chest pain; E11.9 Type 2 diabetes mellitus without complications; F17.210 Nicotine dependence, cigarettes, uncomplicated; Z79.899 Other long term (current) drug therapy
CPT/HCPCS: 36415; 71045; 80048; 80076; 83735; 84484; 85025; 85610; 93005; 99283; 99285

== ENCOUNTER → 2024-05-17 20:27 | Outpatient (BNV) | payer BC, SELFPAY | PROVIDERS: Emergency Provider Emergency Medicine; PCP Nurse Practitioner Family; Visit Provider Internal Medicine | DX: R07.9 Chest pain, unspecified (principal) | CPT/HCPCS: 93010 ==

== ENCOUNTER 2024-06-03 06:36 | Outpatient (REF) | payer BC, SELFPAY ==
[2024-06-03 10:16] LABS: Appearance Urine Turbid; Color Urine Yellow; Glucose Urine UA >=1000 mg/dL (Negative); Leukocyte Esterase Urine Negative (Negative); Nitrite Urine Negative (Negative); PH 5.5 (5.0-9.0); Specific Gravity - Urine >= 1.030 (1.005-1.025); UMIC TRIGGER UACC YES; Urine Blood Negative (Negative); Urine Ketones Trace mg/dL (Negative); Urine Protein Negative (Neg-Trace)
[2024-06-03 10:25] LABS: Bacteria Urine None Seen (None Seen); Hyaline Casts Urine 0-2 /LPF (0-2); RBC Urine 0-2 /HPF (0-2); Squamous Epithelial Cell Urine 0-2 /HPF (0-2); WBC Urine 0-5 /HPF (0-5)
== END 2024-06-03 06:37 | disposition home or self-care (01) ==
LOC: HO.HMGCLDS 06:36
PROVIDERS: PCP Nurse Practitioner Family; Visit Provider Nurse Practitioner Family
DX: E11.9 Type 2 diabetes mellitus without complications (principal)
CPT/HCPCS: 81001

== ENCOUNTER 2024-06-06 08:33 | Outpatient (REF) | payer BC, SELFPAY ==
[2024-06-06 09:59] LABS: MANUAL DIFF FLAG NO
[2024-06-06 10:24] LABS: Estimated Average Glucose 143 mg/dL; Hemoglobin A1C 194.4948 umol/L; Hemoglobin A1c % 6.6 % (<6.0); Total Hemoglobin (HGBA1C) 4043.8961 umol/L
[2024-06-06 10:26] LABS: Basophils Absolute Auto 0.1 X10*3/uL (0.0-0.2); Eosinophils Absolute Auto 0.4 X10*3/uL (0.0-0.4); Eosinophils Percent Auto 4.8 % (0-4); Hematocrit 45.2 % (42.0-52.0); Hemoglobin 15.5 g/dl (14.0-18.0); Imm Gran Abs Auto 0.03 X10*3/uL (0.00-0.03); Imm Gran Pct Auto 0.4 % (0.0-0.4); Lymphocytes Absolute Auto 1.7 X10*3/uL (1.2-4.9); Lymphocytes Percent Auto 20.8 % (20-40); Mean Corpuscular HGB Conc 34.3 g/dl (31.0-36.0); Mean Corpuscular Volume 96.2 fL (80.0-98.0); Mean Platelet Volume 13.1 fL (9.4-12.4); Monocytes Absolute Auto 0.6 X10*3/uL (0.1-1.2); Monocytes Percent Auto 7.3 % (2-11); Neutrophils Absolute Auto 5.3 x10*3/uL (2.0-8.3); Neutrophils Percent Auto 65.7 % (45-73); Platelet Count 210 X10*3/uL (160-400); Red Cell Distribution Width 12.1 % (11.0-16.0); White Blood Count 8.1 X10*3/uL (4.8-10.8)
[2024-06-06 11:02] LABS: Alanine Aminotransferase 46 U/L (0-40); Albumin Level 4.6 g/dL (3.5-5.0); Alkaline Phosphatase 93 U/L (39-117); Anion Gap 12 (12-20); Aspartate Amino Transferase 29 U/L (5-37); Bilirubin Total 0.7 mg/dL (0.0-1.0); Blood Urea Nitrogen 21 mg/dL (9-16); Calcium 9.5 mg/dL (8.4-10.2); Carbon Dioxide 26 mmol/L (22-29); Chloride 105 mmol/L (96-108); Cholesterol 185 mg/dL (<200); Estimated Glomerular Filt Rate > 60; Glucose Fasting 136 mg/dL (60-99); HDL Cholesterol 54 mg/dL (>40); LDL Cholesterol Calculated 115 mg/dL (<100); Potassium 4.1 mmol/L (3.3-5.1); Sodium 139 mmol/L (135-145); Total Protein 7.3 g/dL (6.5-8.0); Triglycerides 83 mg/dL (<150)
[2024-06-06 11:22] LABS: TSH reflex Free T4 1.87 uIU/mL (0.32-4.0); Vitamin D 25-OH Total 85.7 ng/mL (>30)
== END 2024-06-06 08:34 | disposition home or self-care (01) ==
LOC: HO.HMGCLDS 08:33
PROVIDERS: PCP Nurse Practitioner Family; Visit Provider Nurse Practitioner Family
DX: E11.9 Type 2 diabetes mellitus without complications (principal); E55.9 Vitamin D deficiency, unspecified
CPT/HCPCS: 36415; 80053; 80061; 82306; 83036; 84443; 85025

== ENCOUNTER 2024-06-07 10:27 | Outpatient (AMB) | payer BC, SELFPAY ==
[2024-06-07 10:31] VITALS: BP 110/70; PULSE 77; O2SAT 98; BMI 24.4
--- NOTE | 2024-06-07 10:31 | A.OFFPC_ITS ---
Vital Signs 06/07/24 10:31 Height 6 ft 3 in Weight 195 lb BMI 24.4 BP 110/70 Blood Pressure Location Lt brachial Position Sitting Pulse 77 Pulse Source Pulse Oximeter Pulse Oximetry (%) 98 Intake Visit Reasons: Diabetes follow up Intake Note: pt is here for diabetes follow up Environmental Protection Geologist Required: No Accompanied by: Self / Same As Patient Allergies oxycodone [Percocet] Allergy (Severe, Verified 06/07/24 11:33) anaphylaxis, turn nascimento scallops Allergy (Intermediate, Verified 06/07/24 11:33) Fever Medication List - Last Reconciled 06/07/24 by SARINA Luu-MELANY albuterol sulfate 2.5 mg (3 mL) inhalation Q6H PRN albuterol sulfate 90 mcg/actuation 2 puffs inhalation Q6H PRN alcohol swabs (Alcohol Pads) 1 pad topical TID atorvastatin 40 mg PO BEDTIME 90 days blood sugar diagnostic (OneTouch Ultra Test strips) TID testing dapagliflozin propanediol (Farxiga) 5 mg PO DAILY fluticasone propion-salmeterol 500-50 mcg/dose 1 inh inhalation BID fluticasone propionate 50 mcg/actuation (Flonase Allergy Relief) 1 spray intranasal BID PRN FreeStyle Alex 2 Sensor (flash glucose sensor) As directed to monitor blood sugars NS lancets (Onetouch Delica Safety Lancet) TID testing losartan 25 mg PO DAILY 90 days multivitamin 1 tab PO DAILY OneTouch Ultra2 Meter (blood-glucose meter) TID testing NS Tobacco use date assessed: 01/06/24 Dental Screening Dental Screen Date: 01/06/24 HPI Diabetes follow up HPI Details pt is a diabetic. A1c is 6.6 today. denies any neuropathy, polyuria, polydipsia. on a ARB and a statin. Understands the s/s of hypoglycemia and how to correct it. Eye exam is up to date according to pt. Using the sensor. elevated liver enzymes. Ordering a ABD US and hepatitis screen. Pt denies any abd pain, constipation or diarrhea. [facility] Medical History Diverticulosis Tubular adenoma of colon Sleep apnea Thyroid nodule Diabetes Vitamin D deficiency Knee contusion Hyperlipidemia Hx of renal calculi Surgical History History of thyroidectomy, subtotal H/O colonoscopy History of lobectomy of thyroid H/O removal of cyst Hx of lipoma Hx of lithotripsy Hx of cholecystectomy Family History Father 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 High cholesterol HTN (hypertension) Heart attack Mother Pre-diabetes HTN (hypertension) Hx of removal of cyst Paternal Grandmother Thyroid disease Family/Other Testicular cancer Social History Household Members: Family Housing: House Do you presently have visiting nurse or other home services: No Alcohol intake: current Alcohol intake frequency: 0-2 drinks per day Alcohol type: beer Patient Tobacco Use Status: Current someday Tobacco user Tobacco use type: Cigar e-Cigarette/Vaping Use: Never Used Second Hand Smoke Exposure: No service: No Current occupational status: employed Cognitive needs: No Hearing needs: No Vision needs: No Questionnaire PHQ-9 Over the last 2 weeks, how often have you been bothered by any of the following problems? 1. Little interest or pleasure in doing things: not at all 2. Feeling down, depressed, or hopeless: not at all 3. Trouble falling or staying asleep, or sleeping too much: not at all 4. Feeling tired or having little energy: several days 5. Poor appetite or overeating: not at all 6. Feeling bad about yourself - or that you are a failure or have let yourself or your family down: not at all 7. Trouble concentrating on things, such as reading the newspaper or watching television: not at all 8. Moving or speaking so slowly that other people could have noticed. Or the opposite - being so fidgety or restless that you have been moving around a lot more than usual: not at all 9. Thoughts that you would be better off or of hurting yourself in some way: not at all Total score: 1 Depression Screening Interpretation: Negative Depression Screening Done: Yes 89510 - PHQ-9 Billing: Yes Source: Developed by Drs. Ras Rosa, Celi Bridges, Elie Vieira and colleagues, with an educational parviz from [employer]. Thrive Questionnaire Date Thrive assessed: 06/07/24 I am a: Patient What is your living situation today?: I have a steady place to live Within the past 12 months, did the food you bought not last and you didn't have the money to get more?: Never true Within the past 12 months, did you worry whether your food would run out before you got money to buy more?: Never true Do you have trouble paying for medicines?: No Do you have trouble getting transportation to medical appointments?: No Do you have trouble paying your heating and electricity bill?: No Do you have trouble taking care of your child, family member or friend?: No Do you have trouble with day-to-day activities such as bathing, preparing meals, shopping, managing finances, etc.?: No Are you currently unemployed and looking for a job?: No Are you interested in more education?: No Please select the resources that you would like help with: None Currently or been in a relationship where the following occur: No concerns reported THRIVE Score: 0 AUDIT C Alcohol Use Questionnaire (AUDIT-C) 1. How often do you have a drink containing alcohol?: 4 or more times a week 2. How many drinks containing alcohol do you have on a typical day when you are drinking?: 1 or 2 3. How often do you have six or more drinks on one occasion?: Never Total Score: 4 Score Reviewed/Action Taken: Yes DIAN-7 AMB Questionnaire DIAN-7 Date DIAN - 7 assessed: 06/07/24 Feeling nervous, anxious, or on edge: 0 = Not at all Not being able to stop or control worryin = Not at all Worrying too much about different things: 0 = Not at all Trouble relaxin = Not at all Being so restless that it is hard to sit still: 0 = Not at all Becoming easily annoyed or irritable: 0 = Not at all Feeling afraid as if something awful might happen: 0 = Not at all Total DIAN-7 score (0-4 normal; 5-9 mild; 10-14 moderate; 15-21 severe): 0 Source: Developed by Drs. Ras Rosa, Celi Bridges, Elie Vieira and colleagues, with an educational parviz from [employer]. DIAN-7 Assessment Billing DIAN-7 Assessment Tool: DIAN-7 Assessment 26687 Physical exam (Primary Care) Vital Signs: Last Vital Signs Pulse 77 06/07/24 10:31 BP 110/70 06/07/24 10:31 Pulse Ox 98 06/07/24 10:31 BMI result Body Mass Index 24.4 Tobacco/Smoking Status: Tobacco use Status Tobacco use date assessed 01/06/24 06/07/24 10:32 Patient Tobacco Use Status Current someday Tobacco 06/07/24 10:32 Tobacco use type Cigar 06/07/24 10:32 e-Cigarette/Vaping Use Never Used 06/07/24 10:32 PHQ-9: PHQ-9 Score PHQ-9: Total score 1 06/07/24 10:44 Depression Screening Interpretation: Negative Thrive Assessment: Date of Thrive Assessment Date Thrive assessed 06/07/24 06/07/24 10:32 Currently or been in a relationship where the following occur: No concerns reported Resp Effort & Inspection: normal respiratory effort Auscultation: clear to auscultation bilaterally Cardio Rate: regular rate Rhythm: regular rhythm Heart sounds: S1 normal heart sound present, S2 normal heart sound present and no murmurs Extrem Other: feet intact, + sensation with use of monofilament Psych Appearance: grossly normal Mental Status: mental status grossly normal Speech and movement: Normal speech and movement present Affect: normal affect Attitude: cooperative Thought process: Normal thought process present Thought content: Normal thought content present Insight: Good insight present (Psych) Judgement: Good judgement present (Psych) Immunizations pneumoc 20-wandy conj-dip cr(PF) 0.5 mL IM syringe Performing Provider: JUJU Luu Performing Location: [facility] [place] [facility] Administered by: Eh Vazquez CMA on 06/07/24 11:00 Dose Route Admin Location Dispensed Lot Number Expiration Date [facility] Nursery Manager 0.5 mL IM Right Deltoid 0.5 mL [id number] 08/08/25 [employer]unt [employer] VIS Given Date VIS Provided VIS Publication Date 06/07/24 Single Vaccine 21 Eligibility Eligibility Date Funding Source Not [facility] Eligible 06/07/24 Private Coding Level of Care Code Est Pt Level 3 (01585) Diagnoses Screening PSA (prostate specific antigen) Z12.5 Elevated liver enzymes R74.8 Type 2 diabetes mellitus without complication, without long-term current use of insulin E11.9 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 type: type 2 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 systems 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 insulin use: without senior systems programmer use 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 complication status: without complication Additional Codes DIAN-7 Assessment Billing - DIAN-7 Assessment Tool: DIAN-7 Assessment 12841 ([id number]) PHQ-9 - 29672 - PHQ-9 Billing: Yes ([id number]) Assessment & Plan Assessment & Plan (1) Screening PSA (prostate specific antigen): Code(s): Z12.5 - Encounter for screening for malignant neoplasm of prostate Category: Medical (2) Elevated liver enzymes: Code(s): R74.8 - Abnormal levels of other serum enzymes Category: Medical Plan: hepatitis and abd US (3) Diabetes: Code(s): E11.9 - Type 2 diabetes mellitus without complications Category: Medical Qualifiers: 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 type: type 2 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 [facility] insulin use: without senior systems programmer use 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 complication status: without complication Qualified Code(s): E11.9 - Type 2 diabetes mellitus without complications Plan: controlled currently, no changes made Plan Orders: Orders Prostate Specific Antigen Scr Today Z12.5 - Encounter for screening for malignant neoplasm of prostate US abdomen complete Today R74.8 - Abnormal levels of other serum enzymes Hepatitis A,B,C Profile Today R74.8 - Abnormal levels of other serum enzymes Pneumococcal 20 Immunization Today Z23 - Encounter for immunization Medications: Refilled FreeStyle Alex 2 Sensor (flash glucose sensor) As directed to monitor blood sugars 6 ea 1RF NS E11.9 - Type 2 diabetes mellitus without complications albuterol sulfate 90 mcg/actuation 2 puffs inhalation Q6H PRN 6.7 grams 1RF shortness of breath or wheezing
== END 2024-06-07 11:00 | disposition home or self-care (01) ==
PROVIDERS: PCP Nurse Practitioner Family; Visit Provider Nurse Practitioner Family
DX: Z12.5 Encounter for screening for malignant neoplasm of prostate (principal); R74.8 Abnormal levels of other serum enzymes; E11.9 Type 2 diabetes mellitus without complications; Z23 Encounter for immunization

== ENCOUNTER → 2024-06-07 10:27 | Outpatient (BNVA) | payer BC, SELFPAY | PROVIDERS: PCP Nurse Practitioner Family; Visit Provider Nurse Practitioner Family | DX: R74.8 Abnormal levels of other serum enzymes (principal); E11.9 Type 2 diabetes mellitus without complications; Z23 Encounter for immunization | CPT/HCPCS: 90471; 90677; 96127 ==

== ENCOUNTER 2024-06-28 09:41 | Outpatient (REF) | payer BC, SELFPAY ==
--- NOTE | ~2024-06-28 | US_ITS ---
EXAMINATION: US ABDOMEN COMPLETE CLINICAL INFORMATION: Abnormal levels of other serum enzymes. Elevated liver enzymes. COMPARISON: Renal ultrasound 03/03/2023 and 10/20/2022. CT abdomen and pelvis 11/20/2019. TECHNIQUE: Real-time imaging of the abdominal viscera. FINDINGS: PANCREAS: The visualized portion of the pancreas head and body are normal, portion of the pancreatic body and tail, not visualized are obscured by bowel gas. ABDOMINAL AORTA: The proximal, mid, and distal segments are normal in caliber. INFERIOR VENA CAVA: Visualized portions are normal. LIVER: The liver is normal in size. The liver contour is normal. Increased echogenicity of the liver parenchyma, this can be seen in the setting of hepatic steatosis or liver parenchymal disease. No focal hepatic lesion. There is no intrahepatic biliary duct dilatation seen. GALLBLADDER: Surgically absent. COMMON BILE DUCT: Normal in caliber measuring 0.7 cm in diameter. RIGHT KIDNEY: No hydronephrosis. No renal calculi or focal parenchymal lesions. The kidney measures 12.1 cm in maximum dimension. LEFT KIDNEY: No hydronephrosis. No renal calculi or focal parenchymal lesions. The kidney measures 11.4 cm in maximum dimension. SPLEEN: The spleen measures 9.8 cm in maximum dimension. FREE FLUID: None. US/US abdomen complete IMPRESSION: 1. Increased echogenicity of the liver parenchyma, this can be seen in the setting of hepatic steatosis or liver parenchymal disease. 2. No hydronephrosis found on today's exam. 3. Status post cholecystectomy. Electronically signed by: Corine Swann MD 07/10/2024 01:24 PM SH[facility]AR
== END 2024-06-28 09:42 | disposition home or self-care (01) ==
LOC: HO.HMGCX 09:41
PROVIDERS: PCP Nurse Practitioner Family; Visit Provider Nurse Practitioner Family
DX: R74.8 Abnormal levels of other serum enzymes (principal)
CPT/HCPCS: 76700

== ENCOUNTER 2024-12-19 14:15 | Outpatient (REF) | payer BC, SELFPAY ==
[2024-12-20 14:00] LABS: CT PCR NOT DETECTED (Not Detect.); NG PCR NOT DETECTED (Not Detect.)
== END 2024-12-19 14:16 | disposition home or self-care (01) ==
LOC: HO.LAB 14:15
PROVIDERS: PCP Nurse Practitioner Family; Visit Provider Physician Assistant Medical
DX: N39.0 Urinary tract infection, site not specified (principal); R30.0 Dysuria
CPT/HCPCS: 81003; 87086; 87491; 87591

== ENCOUNTER 2024-12-19 14:15 | Outpatient (AMB) | payer BC, SELFPAY ==
--- NOTE | 2024-12-19 14:36 | AM.OFFWIN_ITS ---
Intake Vital Signs 12/19/24 14:44 Weight 195 lb BP 108/70 Blood Pressure Location Rt brachial Position Sitting Pulse 90 Pulse Source Pulse Oximeter Pulse Oximetry (%) 97 Oxygen Delivery Method Room Air Intake Visit Reasons: EP burning sensation when urinating Patient Tobacco Use Status: Current someday Tobacco user Allergies oxycodone [Percocet] Allergy (Severe, Verified 12/19/24 14:43) anaphylaxis, turn nascimento scallops Allergy (Intermediate, Verified 12/19/24 14:43) Fever Do you need a note to return to daycare/school/sports/work: No HPI HPI Comments History of Present Illness Details History of Present Illness The patient is a 54-year-old male presenting with a burning with urination which started yesterday. The patient reports redness and swelling to the tip of his penis since yesterday. He has been having some urethral discharge. He confirms the presence of diabetes mellitus, which is currently controlled, and has experienced kidney stones in the past. Notably, there has been no fever, chills, or blood in the urine, and the urinary symptoms related to the pus are new. He had minimal exposure to his home pool, which was recently opened. He states that he did jump in to fix the filter and then he was out due to the cold. The patient has no history of yeast infections and reports stable urinary frequency related to his diabetes. He denies fever, chills, abd pain, n/v/d, hematuria, back pain, CP or SOB. He is sexually active with his partner of 18 years. He is not concerned for a STI. Physical Exam General: Cooperative, healthy appearing, comfortable, no acute distress and well developed Orientation: Patient oriented x3 Respiratory: Normal respiratory effort and able to speak in complete sentences. Clear to auscultation bilaterally Cardiovascular: Regular rate and rhythm. Normal S1 and S2 GI: Normal to inspection. Soft to palpation and nontender : Redness noted to glans of penis. Urethral discharge noted. Skin: Bright red around the glans, no rashes or lesions noted elsewhere [facility] Medical History (Updated 07/10/24 @ 13:36 by Wade Rangel, FLORAL DESIGN TEACHER-) Fatty liver Diverticulosis Tubular adenoma of colon Sleep apnea Thyroid nodule Diabetes Vitamin D deficiency Knee contusion Hyperlipidemia Hx of renal calculi Surgical History History of thyroidectomy, subtotal H/O colonoscopy History of lobectomy of thyroid H/O removal of cyst Hx of lipoma Hx of lithotripsy Hx of cholecystectomy Family History Father 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 High cholesterol HTN (hypertension) Heart attack Mother Pre-diabetes HTN (hypertension) Hx of removal of cyst Paternal Grandmother Thyroid disease Family/Other Testicular cancer Social History Household Members: Family Housing: House Do you presently have visiting nurse or other home services: No Alcohol intake: current Alcohol intake frequency: 0-2 drinks per day Alcohol type: beer Patient Tobacco Use Status: Current someday Tobacco user Tobacco use type: Cigar e-Cigarette/Vaping Use: Never Used Second Hand Smoke Exposure: No service: No Current occupational status: employed Cognitive needs: No Hearing needs: No Vision needs: No Review of Systems Const All systems reviewed & are unremarkable except as noted in HPI and below Physical Exam Vital Signs: Last Vital Signs Pulse 90 12/19/24 14:44 BP 108/70 12/19/24 14:44 Pulse Ox 97 12/19/24 14:44 Oxygen Delivery Method Room Air 12/19/24 14:44 Results AMB Urinalysis, Automated UA Leukoctes 0 Liss/uL Last Edit by TEN Dwyer on 12/19/24 15:56 UA Nitrite Negative Last Edit by TEN Dwyer on 12/19/24 15:56 UA Urobilinogen 0.2 mg/dL Last Edit by Elkin Banks CCM on 12/19/24 15:56 UA Protein 0 mg/dL Last Edit by Elkin Banks CCM on 12/19/24 15:56 UA pH 6.0 Last Edit by Elkin Banks CCM on 12/19/24 15:56 UA Blood 0 Salty/uL Last Edit by Elkin Banks CCM on 12/19/24 15:56 UA Specific Howard 1.015 Last Edit by Elkin Banks CCM on 06/02/25 15:56 UA Ketone Negative Last Edit by TEN Dwyer on 12/19/24 15:56 UA Bilirubin 0 mg/dL Last Edit by TEN Dwyer on 12/19/24 15:56 UA Glucose 1000 mg/dL Last Edit by TEN Dwyer on 12/19/24 15:56 Assessment & Plan Assessment & Plan (1) Dysuria: Code(s): R30.0 - Dysuria Plan Most likely UTI vs STI vs yeast vs urethritis vs balanitis Plan The recent onset of urinary symptoms suggests a potential infection, for which urine culture has been ordered to check for bacterial growth. Awaiting results for a definitive diagnosis. No immediate infection was evident in the urine sample. Considering the patient's diabetes, the immune response may be affected, warranting vigilance for symptom progression. I will continue to monitor and will decide on antibiotic use based on culture results. Symptoms should be closely watched, with readiness for further diagnostic work or interventional treatment if conditions change. I will order a urine culture and gc/chlam as well. I will also treat him for presumed yeast infection due to the discharge, sx, and his h/o diabetes. Patient was informed and verbally consented to the use of an ambient scribe for clinic note documentation during this visit. Orders: Orders Urine Culture Today N39.0 - Urinary tract infection, site not specified AMB Urinalysis Automated Today Z13.9 - Encounter for screening, unspecified CT NG by PCR Today R30.0 - Dysuria Medications: New fluconazole (Diflucan) 100 mg PO DAILY 3 days 3 tabs 0RF mupirocin 2% 1 appl topical tid 14 days 22 grams 0RF Coding Level of Care Code Est Pt Level 3 (44586) Diagnoses Dysuria R30.0
[2024-12-19 14:44] VITALS: BP 108/70; PULSE 90; O2SAT 97
--- OUTSIDE RECORDS SUMMARY | 2024-12-19 15:31 | XMS_ITS | Clinical Summary ---
Author Organization [facility] Address [address] [place] [address] Phone Care Team Providers Care Stitch Bonding Machine Tender Name Role Phone Unavailable Primary Care Provider Unavailabl e Immunizations Immunization Administration Dates Next Due COVID-19 Pfizer, bivalent, 12+ years 04/08/2022 Social History Tobacco Use Types Packs/Day Years Used Date Smoking Tobacco: Never Assessed Sex and Gender Information Value Date Recorded Sex Assigned at Not on file Legal Sex Male 10:45 AM EDT Gender Identity Not on file Sexual Orientation Not on file Plan of Treatment Health Maintenance Due Date Last Done Comments MMR Vaccines (1 of 1 - Standard series) 02/11/1972 Varicella Vaccines (1 of 2 - 13+ 2-dose series) 02/11/1984 Hepatitis B Vaccines (1 of 3 - 19+ 3-dose series) 1990 Influenza Vaccines (#1) 2024 05/04/2021 COVID-19 Vaccine ( - season) 2024 04/08/2022, 05/13/2021, 11/05/2020, Additional history exists DTaP,Tdap,and Td Vaccines (3 - Td or Tdap) 05/03/2027 05/03/2017, 07/02/2010 Pneumococcal Vaccine Aged Out 06/07/2024 No long er eligible based on patient's age to complete this topic HIB Vaccines Aged Out No longer eligi ble based on patient's age to complete this topic HPV Vaccines Aged Out No longer eligi ble based on patient's age to complete this topic Hepatitis A Vaccines Aged Out No long er eligible based on patient's age to complete this topic IPV Vaccines Aged Out No longer eligi ble based on patient's age to complete this topic Men B Vaccine Aged Out No longer elig ible based on patient's age to complete this topic Meningococcal Vaccine Aged Out No rudy abhijeet eligible based on patient's age to complete this topic Insurance [facility] BLUE CARD OUT OF STATE
== END 2024-12-19 16:05 | disposition home or self-care (01) ==
PROVIDERS: PCP Nurse Practitioner Family; Visit Provider Physician Assistant Medical
DX: R30.0 Dysuria (principal)

== ENCOUNTER 2025-01-05 06:52 | Outpatient (REF) | payer BC, SELFPAY ==
--- OUTSIDE RECORDS SUMMARY | 2025-01-05 06:54 | XMS_ITS | Clinical Summary ---
Author Organization [facility] Address [address] [place] [address] Phone Care Team Providers Care Latex Foam Worker Name Role Phone Unavailable Primary Care Provider [...] patient's age to complete this topic Insurance [facility] BLUE CARD OUT OF STATE
[2025-01-05 10:21] LABS: Appearance Urine Clear; Color Urine Yellow; Glucose Urine UA >=1000 mg/dL (Negative); Leukocyte Esterase Urine Negative (Negative); Nitrite Urine Negative (Negative); PH 5.5 (5.0-9.0); Specific Gravity - Urine >= 1.030 (1.005-1.025); UMIC TRIGGER UACC YES; Urine Blood Negative (Negative); Urine Ketones Trace mg/dL (Negative); Urine Protein Negative (Neg-Trace)
[2025-01-05 10:33] LABS: Bacteria Urine None Seen (None Seen); Hyaline Casts Urine 0-2 /LPF (0-2); RBC Urine 0-2 /HPF (0-2); Squamous Epithelial Cell Urine 0-2 /HPF (0-2); WBC Urine 0-5 /HPF (0-5)
[2025-01-05 11:21] LABS: Prostate Specific Antigen Scr 0.53 ng/mL (<0.05-4.0)
[2025-01-05 11:51] LABS: Microalbum/Creatinine Ratio Ur 11.1 ug/mg cr (<30)
[2025-01-05 12:01] LABS: HBS Num1 1.15 mIU/mL (0-7.99); HBc Num1 0.08 S/CO (0.00-0.79); HBsAGNum1 0.54 S/CO (0.00-0.99); Hepatitis A Antibody IgM 0.14 Index (0-0.79); Hepatitis B Core Antibody Nonreactive (Nonreactive); Hepatitis B Surface Antigen Negative (Negative); ~HepC Num1 0.14 S/CO (0.00-0.79); ~Hepatitis A Antibody IgM Nonreactive (Nonreactive); ~Hepatitis B Surface Antibody NONREACTIVE (Nonreactive); ~Hepatitis C Antibody Nonreactive (Nonreactive)
== END 2025-01-05 06:53 | disposition home or self-care (01) ==
LOC: HO.HMGCLDS 06:52
PROVIDERS: PCP Nurse Practitioner Family; Visit Provider Nurse Practitioner Family
DX: E11.9 Type 2 diabetes mellitus without complications (principal); Z12.5 Encounter for screening for malignant neoplasm of prostate; R74.8 Abnormal levels of other serum enzymes
CPT/HCPCS: 36415; 81001; 82043; 82570; 84153; 86704; 86706; 86709; 86803; 87340

== ENCOUNTER 2025-01-09 10:45 | Outpatient (AMB) | payer BC, SELFPAY ==
[2025-01-09 10:49] VITALS: BP 100/68; PULSE 86; RESP 15; TEMP 37; O2SAT 98; BMI 24.6
--- NOTE | 2025-01-09 10:49 | A.OFFPC_ITS ---
Vital Signs 01/09/25 10:49 Height 6 ft 3 in Weight 197 lb BMI 24.6 BP 100/68 Blood Pressure Location Rt brachial Position Sitting Respiration 15 Pulse 86 Pulse Source Pulse Oximeter Temp 98.6 F Temp Source Oral Pulse Oximetry (%) 98 Oxygen Delivery Method Room Air Intake Visit Reasons: Annual PE Intake Note: Pt is here today for his PE Allergies oxycodone (Percocet) Allergy (Severe, Verified 01/09/25 10:49) anaphylaxis, turn nascimento scallops Allergy (Intermediate, Verified 01/09/25 10:49) Fever Medication List - Last Reconciled 01/09/25 by Wade Rangel, [facility]- albuterol sulfate 2.5 mg (3 mL) inhalation Q6H PRN albuterol sulfate 90 mcg/actuation 2 puffs inhalation Q6H PRN alcohol swabs (Alcohol Pads) 1 pad topical TID atorvastatin 40 mg PO BEDTIME 90 days Bacillus coagulans (Digestive Advantage Probiotic Gummy) 500 mmu cells PO DAILY blood sugar diagnostic (OneTouch Ultra Test strips) TID testing dapagliflozin propanediol (Farxiga) 5 mg PO DAILY fluticasone propion-salmeterol 500-50 mcg/dose 1 inh inhalation BID fluticasone propionate 50 mcg/actuation (Flonase Allergy Relief) 1 spray intranasal BID PRN FreeStyle Alex 2 Sensor (flash glucose sensor) As directed to monitor blood sugars NS lancets (Marina Biotechtouch Delica Safety Lancet) TID testing losartan 25 mg PO DAILY 90 days multivitamin 1 tab PO DAILY mupirocin 2% 1 appl topical tid 14 days OneTouch Ultra2 Meter (blood-glucose meter) TID testing NS Tobacco use date assessed: 01/09/25 Dental Screening Dental Screen Date: 01/09/25 Did you have a dental visit in the last 12 months?: Yes Did you have a dental problem in the last 6 months where you did not have access to dental care?: Yes Was dental information given to patient?: Patient has dentist HPI Annual PE HPI Details History of Present Illness The patient is a 54-year-old male presenting with a physical examination and diabetes management. He has a history of Diabetes Mellitus, with a current HbA1c level of 6.4%, indicating good glycemic control. The patient uses a continuous glucose monitoring sensor to manage his diabetes. His preventative care measures are up to date, including an eye exam, colon cancer screening, PSA test, and microalbumin test. He denies experiencing any neuropathy, polyuria, polydipsia, chest pain, shortness of breath, abdominal pain, blood in stool, constipation, diarrhea, or any suicidal or homicidal ideation. Health Maintenance - Eye exam: Up to date - Colon cancer screening: Up to date - PSA test: Up to date - Microalbumin test: Up to date Social History Review of Systems - Neurological: Denies neuropathy - Genitourinary: Denies polyuria, polydi psia - Cardiovascular: Denies chest pain - Respiratory: Denies dyspnea - Gastrointestinal: Denies abdominal lonnie n, blood in stool, constipation, diarrhea - Psychiatric: Denies suicidal ideation, homicidal ideation Physical Exam General: Cooperative, healthy appearing, comfortable, no acute distress and well developed Orientation: Patient oriented x3 Limitations: No limitations Head: Normal to inspection Ears: Hearing grossly normal bilaterally Nose: Normal external nose present Face and sinus: Normal facial exam Eyes: Appearance normal, both eyes and all related structures Neck: Normal visual inspection and Yes full ROM Respiratory: Normal respiratory effort and able to speak in complete sentences. Clear to auscultation bilaterally Cardiovascular: Regular rate and rhythm. Normal S1 and S2 GI: Normal to inspection. Soft to palpation and nontender Skin: No rashes or lesions noted Neuro: Patient oriented x3 Extremities: Normal to inspection, feet intact bilat, + sensation with use of monofilament Results - Labs: HbA1c 6.4% Plan The patient will continue with his current diabetes management plan, including the use of a continuous glucose monitoring sensor. Preventative care measures such as eye exams, colon cancer screening, PSA tests, and microalbumin tests are up to date and will be maintained. Further laboratory tests will be conducted in a few months to monitor his condition. [facility] Medical History Fatty liver Diverticulosis Tubular adenoma of colon Sleep apnea Thyroid nodule Diabetes Vitamin D deficiency Knee contusion Hyperlipidemia Hx of renal calculi Surgical History History of thyroidectomy, subtotal H/O colonoscopy History of lobectomy of thyroid H/O removal of cyst Hx of lipoma Hx of lithotripsy Hx of cholecystectomy Family History Father 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 High cholesterol HTN (hypertension) Heart attack Mother Pre-diabetes HTN (hypertension) Hx of removal of cyst Paternal Grandmother Thyroid disease Family/Other Testicular cancer Social History Household Members: Family Housing: House Do you presently have visiting nurse or other home services: No Alcohol intake: current Alcohol intake frequency: 0-2 drinks per day Alcohol type: beer Patient Tobacco Use Status: Current someday Tobacco user Tobacco use type: Cigar e-Cigarette/Vaping Use: Never Used Second Hand Smoke Exposure: No service: No Current occupational status: employed Cognitive needs: No Hearing needs: No Vision needs: No Questionnaire PHQ-9 Over the last 2 weeks, how often have you been bothered by any of the following problems? 1. Little interest or pleasure in doing things: not at all 2. Feeling down, depressed, or hopeless: not at all 3. Trouble falling or staying asleep, or sleeping too much: not at all 4. Feeling tired or having little energy: not at all 5. Poor appetite or overeating: not at all 6. Feeling bad about yourself - or that you are a failure or have let yourself o r your family down: not at all 7. Trouble concentrating on things, such as reading the newspaper or watching television: not at all 8. Moving or speaking so slowly that other people could have noticed. Or the opposite - being so fidgety or restless that you have been moving around a lot more than usual: not at all 9. Thoughts that you would be better off or of hurting yourself in some way: not at all Total score: 0 Depression Screening Interpretation: Negative Depression Screening Done: Yes 98693 - PHQ-9 Billing: Yes Source: Developed by Drs. Ras Rosa, Celi Bridges, Elie wilburn nd colleagues, with an educational parviz from [employer]. Thrive Questionnaire Date Thrive assessed: 01/06/25 I am a: Patient What is your living situation today?: I have a steady place to live Within the past 12 months, did the food you bought not last and you didn't have the money to get more?: Never true Within the past 12 months, did you worry whether your food would run out before you got money to buy more?: Never true Do you have trouble paying for medicines?: No Do you have trouble getting transportation to medical appointments?: No Do you have trouble paying your heating and electricity bill?: No Do you have trouble taking care of your child, family member or friend?: No Do you have trouble with day-to-day activities such as bathing, preparing meals, shopping, managing finances, etc.?: No Are you currently unemployed and looking for a job?: No Are you interested in more education?: No Please select the resources that you would like help with: None Currently or been in a relationship where the following occur: No concerns reported THRIVE Score: 0 AUDIT C Alcohol Use Questionnaire (AUDIT-C) 1. How often do you have a drink containing alcohol?: 4 or more times a week 2. How many drinks containing alcohol do you have on a typical day when you are drinking?: 1 or 2 3. How often do you have six or more drinks on one occasion?: Never Total Score: 4 DIAN-7 AMB Questionnaire DIAN-7 Date DIAN - 7 assessed: 01/09/25 Feeling nervous, anxious, or on edge: 0 = Not at all Not being able to stop or control worryin = Not at all Worrying too much about different things: 0 = Not at all Trouble relaxin = Not at all Being so restless that it is hard to sit still: 0 = Not at all Becoming easily annoyed or irritable: 0 = Not at all Feeling afraid as if something awful might happen: 0 = Not at all Total DIAN-7 score (0-4 normal; 5-9 mild; 10-14 moderate; 15-21 severe): 0 Source: Developed by Drs. Ras Rosa, Celi Bridges, Elie Vieira and colleagues, with an educational parviz from [employer]. Physical exam (Primary Care) Vital Signs: Last Vital Signs Temp 98.6 F 01/09/25 10:49 Pulse 86 01/09/25 10:49 Resp 15 01/09/25 10:49 BP 100/68 01/09/25 10:49 Pulse Ox 98 01/09/25 10:49 Oxygen Delivery Method Room Air 01/09/25 10:49 BMI result Body Mass Index 24.6 Tobacco/Smoking Status: Tobacco use Status Tobacco use date assessed 01/09/25 01/09/25 10:51 Patient Tobacco Use Status Current someday Tobacco 01/09/25 10:51 Tobacco use type Cigar 01/09/25 10:51 e-Cigarette/Vaping Use Never Used 01/09/25 10:51 PHQ-9: PHQ-9 Score PHQ-9: Total score 0 01/09/25 11:08 Depression Screening Interpretation: Negative Thrive Assessment: Date of Thrive Assessment Date Thrive assessed 01/06/25 01/09/25 10:51 Currently or been in a relationship where the following occur: No concerns reported Results AMB Hemoglobin A1c AMB Hemoglobin A1c 6.4 % Last Edit by Magaly Herrera CMA on 01/09/25 11:08 Results Reviewed Results Reviewed: Laboratory Last Values Hgb A1c (Clinic) 6.4 % (4.0-6.0) H 01/09/25 11:00 Coding Level of Care Code Est Pt Level 3 (59863) Est Pt Prev Care 40-64y(92587) Diagnoses Type 2 diabetes mellitus without complication, without long-term current use of insulin E11.9 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 complication status: without complication 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 dedicated 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 truck driver insulin use: without dedicated intermodal truck driver use 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 type: type 2 Physical exam Z00.00 Additional Codes PHQ-9 - 37691 - PHQ-9 Billing: Yes ([id number]) Assessment & Plan Assessment & Plan (1) Diabetes: Code(s): E11.9 - Type 2 diabetes mellitus without complications Category: Medical Qualifiers: 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 complication status: without complication 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 dedicated intermodal truck driver insulin use: without dedicated intermodal truck driver use 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 type: type 2 Qualified Code(s): E11.9 - Type 2 diabetes mellitus without complications (2) Physical exam: Onset Date: ~01/09/25 Code(s): Z00.00 - Encounter for general adult medical examination without abnormal findings Category: Medical Plan . Orders: Orders TSH reflex Free T4 Today E11.9 - Type 2 diabetes mellitus without complications UA CC w/rflx Micro + Cult Today E11.9 - Type 2 diabetes mellitus without complications Lipid Panel Today E11.9 - Type 2 diabetes mellitus without complications AMB Hemoglobin A1c Today E11.9 - Type 2 diabetes mellitus without complications Complete Blood Count Auto Diff Today E11.9 - Type 2 diabetes mellitus without complications Comprehensive [place]. Panel Fast Today E11.9 - Type 2 diabetes mellitus without complications
--- OUTSIDE RECORDS SUMMARY | 2025-01-09 12:04 | XMS_ITS | Clinical Summary ---
Author Organization [facility] Address [address] [place] [address] Phone Care Team Providers Care Hoop Cutter Name Role Phone Unavailable Primary Care Provider [...] age to complete this topic Insurance [facility] BLUE CARD OUT OF STATE
== END 2025-01-09 11:12 | disposition home or self-care (01) ==
LOC: HO.HMCC 10:46
PROVIDERS: PCP Nurse Practitioner Family; Visit Provider Nurse Practitioner Family
DX: Z00.00 Encounter for general adult medical examination without abnormal findings (principal); E11.9 Type 2 diabetes mellitus without complications

== ENCOUNTER → 2025-01-09 10:45 | Outpatient (BNVA) | payer BC, SELFPAY | PROVIDERS: PCP Nurse Practitioner Family; Visit Provider Nurse Practitioner Family | DX: Z00.00 Encounter for general adult medical examination without abnormal findings (principal); E11.9 Type 2 diabetes mellitus without complications | CPT/HCPCS: 83036; 96127 ==

== ENCOUNTER 2025-02-09 13:21 | Outpatient (AMB) | payer BC, SELFPAY ==
[2025-02-09 13:24] VITALS: BP 106/70; PULSE 80; TEMP 37.1; O2SAT 97; BMI 24.0
--- NOTE | 2025-02-09 13:24 | MHC.OFFWIV ---
Intake Vital Signs 02/09/25 13:24 Height 6 ft 3 in Weight 192 lb 4 oz BMI 24.0 BP 106/70 Blood Pressure Location Rt brachial Position Sitting Pulse 80 Pulse Source Pulse Oximeter Temp 98.7 F Temp Source Oral Pulse Oximetry (%) 97 Oxygen Delivery Method Room Air Intake Visit Reasons: EP fever, blisters, rash Patient Tobacco Use Status: Current someday Tobacco user Ferry Terminal Supervisor Required: No Allergies oxycodone (Percocet) Allergy (Severe, Verified 02/09/25 13:28) anaphylaxis, turn nascimento scallops Allergy (Intermediate, Verified 02/09/25 13:28) Fever Do you need a note to return to daycare/school/sports/work: No HPI HPI Comments History of Present Illness Details History - The patient is a 54-year-old male presenting with fever and itchy rash. - The patient experienced a fever of 103?F starting 5 days ago, resolved with tylenol. - By Thursday, the patient noticed small bumps on the hands. - The patient reported a sore throat - The patient had contact with a grandson who had a similar condition approximately three weeks prior. Physical Exam General: Cooperative, healthy appearing, comfortable, no acute distress and well developed Orientation: Patient oriented x3 Limitations: No limitations Head: Normal to inspection Ears: Hearing grossly normal bilaterally Nose: Normal External nose present Face and sinus: Normal facial exam Mouth: Posterior oropharynx erythema Eyes: Appearance normal, both eyes and all related structures Neck: Normal visual inspection and Yes full ROM Respiratory: Normal respiratory effort and able to speak in complete sentences. Skin: maculopapular rash on hands, feet and a few on the oral mucosa Neuro: Patient oriented x3 Extremities: Moving all extremities normally PFSH Medical History Fatty liver Diverticulosis Tubular adenoma of colon Sleep apnea Thyroid nodule Diabetes Vitamin D deficiency Knee contusion Hyperlipidemia Hx of renal calculi Surgical History History of thyroidectomy, subtotal H/O colonoscopy History of lobectomy of thyroid H/O removal of cyst Hx of lipoma Hx of lithotripsy Hx of cholecystectomy Family History Father 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 High cholesterol HTN (hypertension) Heart attack Mother Pre-diabetes HTN (hypertension) Hx of removal of cyst Paternal Grandmother Thyroid disease Family/Other Testicular cancer Social History Household Members: Family Housing: House Do you presently have visiting nurse or other home services: No Alcohol intake: current Alcohol intake frequency: 0-2 drinks per day Alcohol type: beer Patient Tobacco Use Status: Current someday Tobacco user Tobacco use type: Cigar e-Cigarette/Vaping Use: Never Used Second Hand Smoke Exposure: No service: No Current occupational status: employed Cognitive needs: No Hearing needs: No Vision needs: No Review of Systems Const All systems reviewed & are unremarkable except as noted in HPI and below Physical Exam Vital Signs: Last Vital Signs Temp 98.7 F 02/09/25 13:24 Pulse 80 02/09/25 13:24 BP 106/70 02/09/25 13:24 Pulse Ox 97 02/09/25 13:24 Oxygen Delivery Method Room Air 02/09/25 13:24 BMI result Body Mass Index 24.0 Assessment & Plan Assessment & Plan (1) Hand, foot and mouth disease (HFMD): Code(s): B08.4 - Enteroviral vesicular stomatitis with exanthem Plan: Plan Patient was informed and verbally consented to the use of an ambient scribe for clinic note documentation during this visit Hand, Foot, And Mouth Disease - The condition is self-limiting and will resolve on its own. - Symptomatic treatment includes Tylenol 1 gram every eight hours as needed for fever. - Hydrocortisone cream and Benadryl at night can be used for itching. - Avoid contact with individuals due to potential risks. Coding Level of Care Code Est Pt Level 3 (98205) Diagnoses Hand, foot and mouth disease (HFMD) B08.4
--- OUTSIDE RECORDS SUMMARY | 2025-02-09 13:27 | XMS_ITS | Clinical Summary ---
Author Organization [facility] Address [address] [place] [address] Care Team Providers Care Air Grinder Name Role Phone Name, Fredi MARTINES Primary Care Provider [phone] Surgical History Surgery Date Site/Laterality Comments COLONOSCOPY 2004 PROCEDURE: [place] COLONOSCOPY STOMA DX INCLUDING COLLJ SPEC SPX CHOLECYSTECTOMY PROCEDURE: HISTORICAL CHOLECYSTECTOMY Family History Medical History Relation Name Comments Hyperlipidemia Father Hypertension Maternal Grandfather [place] Hypertension Maternal Grandmother Hypertension Paternal Grandfather em physema Hypertension Paternal Grandmother Relation Name Status Comments Brother 1 Alive Alcoholism Brother 2 Alive Alcoholism Father Alive High triglyceri berry Maternal Grandfather Maternal Grandmother Mother Alive Diabetes Paternal Grandfather Paternal Grandmother Social History Tobacco Use Types Packs/Day Years Used Date Smoking Tobacco: Never Smokeless Tobacco: Never Alcohol Use Standard Drinks/Week Comments Yes 0 (1 standard drink = 0.6 oz pur e alcohol) Sex and Gender Information Value Date Recorded Sex Assigned at Not on file Legal Sex Male 4:58 PM EST Gender Identity Not on file Sexual Orientation Not on file Obstetrics History Plan of Treatment Health Maintenance Due Date Last Done Comments Hepatitis B Vaccines (1 of 3 - 19+ 3-dose series) 1990 DTaP,Tdap,and Td Vaccines (2 - Td or Tdap) 07/02/2020 07/02/2010 Pneumococcal Vaccine: 50+ Ye ars (1 of 1 - PCV) 2021 Zoster Vaccines (1 of 2) 2021 COVID-19 Vaccine ( - 2023-2 5 season) 2024 Depression Screening 07/20/2024 Influenza Vaccine (#1) 2025 HIB Vaccines Aged Out No longer eligi [...] on patient's age to complete this topic MMR Vaccines Aged Out No longer eligi ble based on patient's age to complete this topic Meningococcal ACWY Vaccine Aged Out N o longer eligible based on patient's age to complete this topic Meningococcal B Vaccine Aged Out No l onger eligible based on patient's age to complete this topic RSV Immunization Patients Un yadi 20 months Aged Out No longer eligible b ased on patient's age to complete this topic Varicella Vaccines Aged Out No longer eligible based on patient's age to complete this topic Care Teams Air Grinder Relationship Specialty Start Date End Date Name, MD Fredi [address] [place] [address] PCP - General 08/14/09
--- OUTSIDE RECORDS SUMMARY | 2025-02-09 13:27 | XMS_ITS | Clinical Summary ---
Author Organization [facility] Address [address] [place] [address] Phone Care Team Providers Care Hot Kettle Tender Name Role Phone Unavailable Primary Care [...] of 3 - 19+ 3-dose series) 1990 COVID-19 Vaccine ( season) 2024 04/08/2022, 05/13/2021, 11/05/2020, Additional history exists Influenza Vaccines (#1) 2025 05/04/2021 DTaP,Tdap,and Td Vaccines (3 - Td or [...] patient's age to complete this topic Insurance [facility] BLUE CARD OUT OF STATE
== END 2025-02-09 14:15 | disposition home or self-care (01) ==
PROVIDERS: PCP Nurse Practitioner Family; Visit Provider Physician Assistant
DX: B08.4 Enteroviral vesicular stomatitis with exanthem (principal)

== ENCOUNTER 2025-02-14 21:51 | Emergency (ER) | payer BC, SELFPAY ==
--- NOTE | 2025-02-14 | ECG_ITS ---
Test Reason : tachycardia Blood Pressure : */* mmHG Vent. Rate : 126 BPM Atrial Rate : 126 BPM P-R Int : 174 ms QRS Dur : 88 ms QT Int : 300 ms P-R-T Axes : 29 -42 38 degrees QTcB Int : 434 ms Sinus tachycardia Left axis deviation Abnormal ECG When compared with ECG of 17-May-2024 20:27, Vent. rate has increased by 49 bpm Referred By: Generic ED Physician Electronically Signed By: WHITNEY SONI MD
--- NOTE | ~2025-02-14 | CT_ITS ---
CLINICAL HISTORY: Right lower quadrant pain? Acute appendicitis CT abdomen and pelvis with contrast Comparison: US/SR - US ABDOMEN - 06/28/24 09:49 EST Findings: No consolidation or effusion. The liver, spleen, adrenal glands, pancreas and kidneys are unremarkable. The gallbladder is absent. No bowel obstruction, pneumoperitoneum, or pneumatosis. No bowel wall thickening. There is diffuse haziness within the mesenteric fat centrally. No mesenteric or retroperitoneal lymphadenopathy. Abdominal aorta is normal caliber with minimal atherosclerotic plaquing. The appendix is normal. The prostate gland is unremarkable. Urinary bladder is markedly distended. No acute fracture. IMPRESSION: Normal appendix. Diffuse haziness within the central mesenteric fat, a nonspecific finding that can be associated with malignancy, idiopathic, mesenteric panniculitis. This document has been electronically signed by: Ramon Swain MD on 02/15/2025 02:32:28
[2025-02-14 21:54] VITALS: BP 123/75; PULSE 125; RESP 18; TEMP 37.3; O2SAT 95; BMI 24.3
[2025-02-14 22:19] LABS: MANUAL DIFF FLAG NO
[2025-02-14 22:20] LABS: Hematocrit 43.1 % (42.0-52.0); Hemoglobin 15.1 g/dl (14.0-18.0); Imm Gran Abs Auto 0.05 X10*3/uL (0.00-0.03); Imm Gran Pct Auto 0.3 % (0.0-0.4); Lymphocytes Absolute Auto 2.0 X10*3/uL (1.2-4.9); Mean Corpuscular HGB Conc 35.0 g/dl (31.0-36.0); Mean Corpuscular Hemoglobin 32.5 pg (27.0-33.0); Mean Corpuscular Volume 92.7 fL (80.0-98.0); NRBC Abs Auto 0.000 X10*3/uL (0.0-0.012); NRBC Pct Auto 0.0 /100WBC (0.0-0.2); Platelet Count 228 X10*3/uL (160-400); Red Blood Count 4.65 X10*6/uL (4.60-5.80); White Blood Count 15.5 X10*3/uL (4.8-10.8)
[2025-02-14 22:31] VITALS: BP 123/75; PULSE 125; RESP 18; TEMP 37.3; O2SAT 95
[2025-02-14 22:36] LABS: Alanine Aminotransferase 43 U/L (0-40); Albumin Level 4.6 g/dL (3.5-5.0); Alkaline Phosphatase 96 U/L (39-117); Anion Gap 15 (12-20); Aspartate Amino Transferase 27 U/L (5-37); Blood Urea Nitrogen 21 mg/dL (9-16); Calcium 9.3 mg/dL (8.4-10.2); Carbon Dioxide 24 mmol/L (22-29); Chloride 104 mmol/L (96-108); Creatinine Clr Calc Pharmacy 99.9; Estimated Glomerular Filt Rate > 60; Potassium 4.2 mmol/L (3.3-5.1); Sodium 139 mmol/L (135-145); Total Protein 7.6 g/dL (6.5-8.0)
--- NOTE | 2025-02-14 23:20 | ED_ITS ---
HPI - Abdominal Pain General Chief Complaint: Abdominal Pain Stated Complaint: Lower R abdominal pain/Fever Time Seen by Provider: 02/14/25 23:19 Source: patient Mode of arrival: ambulatory Limitations: no limitations History of Present Illness ED Provider: HPI narrative: Patient no significant past medical history woke up today at 06:00 with right lower abdominal pain which got worse during the day associated with nausea no vomiting no fever no chills does not feel hungry patient is status post cholecystectomy no history of kidney stone no urinary symptoms status post cholecystectomy Related Data Home Medications ?Medication ?Instructions ?Recorded ?Confirmed multivitamin 1 tab PO DAILY 10/11/2212/19 fluticasone propionate 50 1 spray intranasal BID PRN n arnav 04/01/23 01/09/25 mcg/actuation nasal suffiness spray,suspension (Flonase Allergy Relief) Bacillus coagulans 250 million 500 mmu cells PO DAILY 01/09/25 01/09/25 cell chewable tablet (Digestive Advantage Probiotic Gummy) Previous Rx's ?Medication ?Instructions ?Recorded ZappliTouch Ultra2 Meter #1 ea 12/25/22 (blood-glucose meter) albuterol sulfate 2.5 mg/3 mL 2.5 mg (3 mL) inhalation Q6H PRN 12/25/22 (0.083 %) solution for nebulization shortness of breat h or wheezing #180 mL alcohol swabs (Alcohol Pads) 1 pad topical TID #200 ea 12/25/22 blood sugar diagnostic (OneTouch #100 ea 12/26/22 Ultra Test strips) lancets 30 gauge (Onetouch Delica #100 ea 12/26/22 Safety Lancet) albuterol sulfate 90 mcg/actuation 2 puff inhalation Q 6H PRN 09/18/24 aerosol inhaler shortness of breath or wheez ing #6.7 grams fluticasone 500 mcg-salmeterol 50 1 inh inhalation BID #180 ea 09/18/24 mcg/dose blistr powdr for inhalation dapagliflozin propanediol 5 mg 5 mg PO DAILY #90 tabs 11/04/24 tablet (Farxiga) losartan 25 mg tablet 25 mg PO DAILY 90 days #90 t abs 11/09/24 FreeStyle Alex 2 Sensor (flash #6 ea 01/10/25 glucose sensor) atorvastatin 40 mg tablet 40 mg PO BEDTIME 90 days #90 tabs 02/05/25 ibuprofen 600 mg tablet 600 mg PO Q6H PRN fever or p ain 02/15/25 #30 tabs Allergies Allergy/AdvReac Type Severity Reaction Status Date / Time oxycodone (Percocet) Allergy Severe anaphylaxis, Verified 02/14/25 21:55 turn nascimento scallops Allergy Intermediate Fever Verified 02/14/25 21:55 Review of Systems Review of Systems Yes all other systems are reviewed and are negative [facility] Past Medical History Medical History Fatty liver Diverticulosis Tubular adenoma of colon Sleep apnea Thyroid nodule Diabetes Vitamin D deficiency Knee contusion Hyperlipidemia Hx of renal calculi Surgical History History of thyroidectomy, subtotal H/O colonoscopy History of lobectomy of thyroid H/O removal of cyst Hx of lipoma Hx of lithotripsy Hx of cholecystectomy Family History Family History Father 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 High cholesterol HTN (hypertension) Heart attack Mother Pre-diabetes HTN (hypertension) Hx of removal of cyst Paternal Grandmother Thyroid disease Family/Other Testicular cancer Social History Social History Household Members: Family Housing: House Do you presently have visiting nurse or other home services: No Alcohol intake: current Alcohol intake frequency: 0-2 drinks per day Alcohol type: beer and hard liquor Patient Tobacco Use Status: Current someday Tobacco user Tobacco use type: Cigar Smoked in Last 30 Days: Yes e-Cigarette/Vaping Use: Never Used Second Hand Smoke Exposure: No Use of substances other than those prescribed or required for medical reasons: No Advance Directives: No Advance Directives Information Provided: No service: No Current occupational status: employed Cognitive needs: No Hearing needs: No Vision needs: No Physical Exam ED Vital Signs: Vital Signs - 24 hr 02/14/25 21:54 02/14/25 22:31 02/15/25 01:08 Temperature 99.2 F 99.2 F Pulse Rate 125 H 125 H Respiratory Rate 18 18 16 Blood Pressure 123/75 123/75 Pulse Oximetry 95 95 Oxygen Delivery Method Room Air Room Air BMI result Body Mass Index 24.3 Appearance: Alert. Oriented X3. No acute distress. Eyes: PERRLA, No Nystagmus no pallor or icterus ENT: Pharynx normal. Oral Mucosa moist Neck: Normal inspection. Neck supple. CVS: Normal heart rate and rhythm. Pulses normal. Respiratory: No respiratory distress. Equal air entry bilateral, no wheezing/rales/rhonchi Abdomen: Soft and tenderness right lower quadrant with guarding and rebound tenderness bowel sounds are sluggish no mass palpable, no CVA tenderness Skin: Skin warm and dry. Normal skin color. Normal skin turgor. Extremities: No lower extremity edema. No calf tenderness Neuro: Oriented X 3. No motor deficit. Medical Decision Making Medical Decision Making [facility] Narrative: Patient's right lower abdominal pain with no prior history of kidney stones status post cholecystectomy clinically patient has acute appendicitis possible perforation will do CT scan of the abdomen meanwhile will give IV Zosyn Patient's CT scan report came back negative for appendicitis showed mesenteric panniculitis patient is feeling much better at this time will discharge patient home advised to follow up as outpatient Differential Diagnosis Differential Diagnoses: The differential diagnosis associated with the presentation includes Acute appendicitis/diverticulitis/mesenteritis Admission/Observation Consideration of admission/observation: Escalation of care including admission/observation considered Lab Data [facility] Lab Attestation statement: I reviewed the patient's lab results. 02/14/25 22:13 02/14/25 22:13 Labs: Lab Results 02/14/25 Range/Units 22:13 WBC 15.5 H (4.8-10.8) X10*3/uL RBC 4.65 (4.60-5.80) X10*6/uL Hgb 15.1 (14.0-18.0) g/dl Hct 43.1 (42.0-52.0) % MCV 92.7 (80.0-98.0) fL MCH 32.5 (27.0-33.0) pg MCHC 35.0 (31.0-36.0) g/dl RDW 11.9 (11.0-16.0) % Plt Count 228 (160-400) X10*3/uL MPV 12.5 H (9.4-12.4) fL Immature Gran % (Auto) 0.3 (0.0-0.4) % Neut % (Auto) 77.3 H (45-73) % Lymph % (Auto) 12.9 L (20-40) % [place] % (Auto) 7.6 (2-11) % Eos % (Auto) 1.4 (0-4) % Baso % (Auto) 0.5 (0-2) % Lymph # (Auto) 2.0 (1.2-4.9) X10*3/uL [place] # (Auto) 1.2 (0.1-1.2) X10*3/uL Eos # (Auto) 0.2 (0.0-0.4) X10*3/uL Baso # (Auto) 0.1 (0.0-0.2) X10*3/uL Abs Immat Gran (auto) 0.05 H (0.00-0.03) X10*3/uL Absolute Neuts (auto) 12.0 H (2.0-8.3) x10*3/uL Absolute Nucleated RBC 0.000 (0.0-0.012) X10*3/uL Nucleated RBC % (auto) 0.0 (0.0-0.2) /100WBC Sodium 139 (135-145) mmol/L Potassium 4.2 (3.3-5.1) mmol/L Chloride 104 (96-108) mmol/L Carbon Dioxide 24 (22-29) mmol/L Anion Gap 15 (12-20) BUN 21 H (9-16) mg/dL Creatinine 1.01 (0.5-1.4) mg/dL Estim Creat Clear Calc 99.9 Estimated GFR > 60 Random Glucose 208 H (60-115) mg/dL Lactic Acid 1.9 (0.5-2.0) mmol/L Calcium 9.3 (8.4-10.2) mg/dL Total Bilirubin 0.3 (0.0-1.0) mg/dL AST 27 (5-37) U/L ALT 43 H (0-40) U/L Alkaline Phosphatase 96 (39-117) U/L Total Protein 7.6 (6.5-8.0) g/dL Albumin 4.6 (3.5-5.0) g/dL Independent Interpretation I performed an independent interpretation of an: CT Scan Radiology Impression Discussion of test interpretation with radiology: I have reviewed the radiologist's reading. Radiologist Impression: IMPRESSION: Normal appendix. Diffuse haziness within the central mesenteric fat, a nonspecific finding that can be associated with malignancy, idiopathic, mesenteric panniculitis. Medications Administered Discontinued Medications Generic Name Dose Route Start Last Admin Trade Name Freq PRN Reason Stop Dose Admin Sodium Chloride 1,000 mls @ 999 mls/hr 02/15/25 00:11 02/15/25 01:09 Ns IV 02/15/25 01:11 999 mls/hr .Q1H1M ONE Administration Piperacillin Sod/Tazobactam 50 mls @ 100 mls/hr 02/15/25 00:11 02/15/25 01:08 Sod 3.375 gm/ Sodium Chloride IV 02/15/25 00:40 100 mls/hr ONCE ONE Administration Iohexol 85 ml 02/15/25 01:45 02/15/25 01:46 Iohexol 350 Mg/Ml 100 Ml Infus..Btl IV 02/15/25 01:46 85 ml ONCE ONE Administration Morphine Sulfate 4 mg 02/15/25 00:11 02/15/25 01:08 Morphine Sulfate 4 Mg/Ml Cartridge IVPUSH 02/15/25 00:12 4 mg ONCE ONE Administration Protocol Ondansetron HCl 4 mg 02/15/25 00:11 02/15/25 01:08 Ondansetron Hcl 4 Mg/2 Ml Vial IVPUSH 02/15/25 00:12 4 mg ONCE ONE Administration Discharge Plan Discharge Clinical Impression: Mesenteric panniculitis Patient Disposition: Home, Self-Care Instructions: Abdominal Pain (ED) Additional Instructions: Your pain in the abdomen is from inflammation of the mesentery Your appendix is normal Take ibuprofen for pain Report to the ER if pain gets worse Prescriptions: New ibuprofen 600 mg tablet 600 mg PO Q6H PRN (Reason: fever or pain) Qty: 30 0RF No Action albuterol sulfate 2.5 mg /3 mL (0.083 %) solution for nebulization 2.5 mg inhalation Q6H PRN (Reason: shortness of breath or wheezing) Qty: 180 0RF alcohol swabs [Alcohol Pads] Pads, Medicated 1 pad topical TID Qty: 200 0RF (DME) blood-glucose meter [SCM-GLuch Ultra2 Meter] Misc See Rx Instructions .Route Qty: 1 0RF Rx Instructions: TID testing (DME) lancets [Onetouch Delica Safety Lancet] 30 gauge misc See Rx Instructions .Route Qty: 100 5RF Rx Instructions: TID testing (DME) OneTouch Ultra Test Strip See Rx Instructions .Route Qty: 100 5RF Rx Instructions: TID testing fluticasone propion-salmeterol 500-50 mcg/dose blister with device 1 inh inhalation BID Qty: 180 1RF albuterol sulfate 90 mcg/actuation HFA aerosol inhaler 2 puff inhalation Q6H PRN (Reason: shortness of breath or wheezing) Qty: 6.7 1RF Farxiga 5 mg tablet 5 mg PO DAILY Qty: 90 1RF losartan 25 mg tablet 25 mg PO DAILY 90 Days Qty: 90 1RF (DME) FreeStyle Alex 2 Sensor Kit See Rx Instructions .Route Qty: 6 1RF Rx Instructions: As directed to monitor blood sugars atorvastatin 40 mg tablet 40 mg PO BEDTIME 90 Days Qty: 90 1RF multivitamin Tablet 1 tab PO DAILY fluticasone propionate [Flonase Allergy Relief] 50 mcg/actuation spray,suspension 1 spray intranasal BID PRN (Reason: nasal suffiness) Rx Instructions: administer into each nostril Digestive Advantage Prob Gummy 250 million cell tablet,chewable 500 mmu cells PO DAILY Print Language: Belgian
[2025-02-15 01:08] VITALS: RESP 16
[2025-02-15] MEDS: iohexoL 350 MG/ML 100 ML INFUS..BTL 85 ML IV (01:46)
[2025-02-15 02:54] VITALS: BP 111/77; PULSE 103; RESP 18; TEMP 37.3; O2SAT 95
[2025-02-15 02:55] VITALS: BP 111/77; PULSE 103; RESP 18; TEMP 37.3; O2SAT 95
== END 2025-02-15 02:56 | disposition home or self-care (01) ==
PROVIDERS: Emergency Provider Internal Medicine; PCP Nurse Practitioner Family
DX: K65.4 Sclerosing mesenteritis (principal); R10.31 Right lower quadrant pain; E11.9 Type 2 diabetes mellitus without complications; E78.5 Hyperlipidemia, unspecified; F17.200 Nicotine dependence, unspecified, uncomplicated; Z79.02 Long term (current) use of antithrombotics/antiplatelets; Z79.899 Other long term (current) drug therapy
CPT/HCPCS: 36415; 74177; 80053; 83605; 85025; 87040; 93005; 96365; 96375; 99284; J2270; J2405; J2543; Q9967

== ENCOUNTER → 2025-02-14 22:04 | Outpatient (BNV) | payer BC, SELFPAY | PROVIDERS: Emergency Provider Internal Medicine; PCP Nurse Practitioner Family; Visit Provider Internal Medicine Cardiovascular Disease | DX: R00.0 Tachycardia, unspecified (principal) | CPT/HCPCS: 93010 ==

== ENCOUNTER → 2025-02-15 01:22 | Outpatient (BNV) | payer BC, SELFPAY | PROVIDERS: Emergency Provider Internal Medicine; PCP Nurse Practitioner Family; Visit Provider Radiology Diagnostic Radiology | DX: R10.10 Upper abdominal pain, unspecified (principal) | CPT/HCPCS: 74177 ==

== ENCOUNTER 2025-03-06 14:11 | Outpatient (REF) | payer BC, SELFPAY ==
[2025-03-07 10:19] LABS: Chlamydia pneumoniae PCR Not Detected (Not Detect.); Coronavirus 229E PCR Not Detected (Not Detect.); Coronavirus HKU1 PCR Not Detected (Not Detect.); Coronavirus NL63 PCR Not Detected (Not Detect.); Coronavirus OC43 PCR Not Detected (Not Detect.); RSV PCR Not Detected (Not Detect.); Rhino/Enterovirus PCR Detected (Not Detect.)
[2025-03-07 10:38] LABS: Influenza A H1 PCR Not Detected (Not Detect.); Influenza A H1-2009 PCR Not Detected (Not Detect.); Influenza A H3 PCR Not Detected (Not Detect.); SARS-CoV-2 PCR Not Detected (Not Detect.)
== END 2025-03-06 14:12 | disposition home or self-care (01) ==
LOC: HO.LAB 14:11
PROVIDERS: Physician Assistant; PCP Nurse Practitioner Family
DX: J22 Unspecified acute lower respiratory infection (principal); J45.901 Unspecified asthma with (acute) exacerbation; R05.9 Cough, unspecified; R09.89 Other specified symptoms and signs involving the circulatory and respiratory systems; F17.290 Nicotine dependence, other tobacco product, uncomplicated; Z79.899 Other long term (current) drug therapy
CPT/HCPCS: 87633

== ENCOUNTER 2025-03-06 14:11 | Outpatient (AMB) | payer BC, SELFPAY ==
[2025-03-06 14:39] VITALS: BP 104/76; PULSE 103; TEMP 36.8; O2SAT 97; BMI 23.7
--- NOTE | 2025-03-06 14:39 | MHC.OFFWIV ---
Intake Vital Signs 03/06/25 14:39 Height 6 ft 3 in Weight 190 lb BMI 23.7 BP 104/76 Blood Pressure Location Rt brachial Position Sitting Pulse 103 H Pulse Source Pulse Oximeter Temp 98.2 F Temp Source Oral Pulse Oximetry (%) 97 Oxygen Delivery Method Room Air Intake Visit Reasons: EP-wheezing, coughing Intake Note: presents with productive coughing and wheezing for a couple days Patient Tobacco Use Status: Current someday Tobacco user Allergies oxycodone (Percocet) Allergy (Severe, Verified 03/06/25 14:42) anaphylaxis, turn nascimento scallops Allergy (Intermediate, Verified 03/06/25 14:42) Fever Do you need a note to return to daycare/school/sports/work: No HPI HPI Comments History of Present Illness Details History - The patient is a 55-year-old male presenting with symptoms of an upper respiratory tract infection and asthma exacerbation. - Symptoms began last week as a sinus cold and progressed to include chest involvement, coughing, congestion, and wheezing. - The patient has a history of asthma, uses BID and PRN inhalers, and reports relief from their use. - Current medications include Flonase and albuterol inhalers, used twice daily. Physical Exam General: Cooperative, healthy appearing, comfortable and no acute distress Orientation/consciousness: Patient oriented x3 Limitations: No limitations Head: Normal to inspection Ears: Hearing grossly normal bilaterally, external ears normal and TM's normal bilaterally Nose: Normal external nose present, Normal nares present and No nasal discharge present Face and sinus: Normal facial exam and Yes sinuses nontender Mouth: Normal oral and palatal mucosa present and moist mucous membranes Throat: Yes tonsils normal, Yes uvula midline. Posterior oropharynx erythema, no exudates Eyes: Appearance normal, both eyes and all related structures Neck: Normal visual inspection, full ROM Respiratory: Clear to auscultation bilaterally. Normal respiratory effort, able to speak in complete sentences, Actively coughing, no respiratory distress, not tachypneic, no tripod positioning and no use of accessory muscles. Inspiratory and expiratory wheezing noted. Cardiovascular: Regular rate and rhythm. Normal S1 and S2. Skin: No rashes or lesions noted Neuro: Patient oriented x3 Extremities: Normal to inspection and Yes no clubbing, cyanosis or edema [facility] Medical History Fatty liver Diverticulosis Tubular adenoma of colon Sleep apnea Thyroid nodule Diabetes Vitamin D deficiency Knee contusion Hyperlipidemia Hx of renal calculi Surgical History History of thyroidectomy, subtotal H/O colonoscopy History of lobectomy of thyroid H/O removal of cyst Hx of lipoma Hx of lithotripsy Hx of cholecystectomy Family History Father 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 High cholesterol HTN (hypertension) Heart attack Mother Pre-diabetes HTN (hypertension) Hx of removal of cyst Paternal Grandmother Thyroid disease Family/Other Testicular cancer Social History Household Members: Family Housing: House Do you presently have visiting nurse or other home services: No Alcohol intake: current Alcohol intake frequency: 0-2 drinks per day Alcohol type: beer and hard liquor Patient Tobacco Use Status: Current someday Tobacco user Tobacco use type: Cigar e-Cigarette/Vaping Use: Never Used Second Hand Smoke Exposure: No service: No Current occupational status: employed Cognitive needs: No Hearing needs: No Vision needs: No Review of Systems Const All systems reviewed & are unremarkable except as noted in HPI and below Physical Exam Vital Signs: Last Vital Signs Temp 98.2 F 03/06/25 14:39 Pulse 103 H 03/06/25 14:39 BP 104/76 03/06/25 14:39 Pulse Ox 97 03/06/25 14:39 Oxygen Delivery Method Room Air 03/06/25 14:39 BMI result Body Mass Index 23.7 Assessment & Plan Assessment & Plan (1) Lower respiratory infection (e.g., bronchitis, pneumonia, pneumonitis, pulmonitis): Code(s): J22 - Unspecified acute lower respiratory infection Plan: Plan - VSS, pt well appearing and PE remarkable for insp/exp wheezes. - Prescribe prednisone 40 mg daily, to be taken in the morning to avoid insomnia. - Prescribe a Z-Onel for its anti-inflammatory properties to aid breathing. - Consider Augmentin if bacterial infection is suspected, pending viral panel test results. - Continue using inhalers as needed for symptom relief. Patient was informed and verbally consented to the use of an ambient scribe for clinic note documentation during this visit Orders: Orders Resp Pathogen Panel - [facility] Today J06.9 - Acute upper respiratory infection, unspecified Medications: New prednisone 40 mg (2 x 20 mg) PO QAM 10 tabs 0RF azithromycin For 250 mg dose pack: take 500 mg today (day 1), then 250 mg for 4 days (days 2-5) PO 6 tabs 0RF Coding Level of Care Code Est Pt Level 3 (50251) Diagnoses Lower respiratory infection (e.g., bronchitis, pneumonia, pneumonitis, pulmonitis) J22
--- OUTSIDE RECORDS SUMMARY | 2025-03-06 14:58 | XMS_ITS | Clinical Summary ---
Author Organization [facility] Address [address] [place] [address] Care Team Providers Care Telephone Cleaner Name Role Phone Name, Fredi MARTINES Primary Care Provider [phone] Surgical History Surgery Date Site/Laterality Comments COLONOSCOPY 2004 PROCEDURE: [place] COLONOSCOPY STOMA DX INCLUDING COLLJ SPEC SPX CHOLECYSTECTOMY PROCEDURE: HISTORICAL CHOLECYSTECTOMY Family History Medical History Relation Name Comments Hyperlipidemia Father Hypertension Maternal Grandfather [place] Hypertension Maternal Grandmother Hypertension Paternal Grandfather em [...] age to complete this topic Care Teams Telephone Cleaner Relationship Specialty Start Date End Date Name, MD Fredi [address] [place] [address] PCP - General 08/14/09
--- OUTSIDE RECORDS SUMMARY | 2025-03-06 14:58 | XMS_ITS | Clinical Summary ---
Author Organization [facility] Address [address] [place] [address] Phone Care Team Providers Care Printed Forms Proofreader Name Role Phone Unavailable Primary Care Provider [...] patient's age to complete this topic Insurance [facility] BLUE CARD OUT OF STATE
== END 2025-03-06 15:01 | disposition home or self-care (01) ==
PROVIDERS: PCP Nurse Practitioner Family; Visit Provider Physician Assistant
DX: J22 Unspecified acute lower respiratory infection (principal)

== ENCOUNTER 2025-06-21 11:07 | Emergency (ER) | payer BC, SELFPAY ==
--- NOTE | ~2025-06-21 | XR_ITS ---
EXAMINATION: XR THORACIC SPINE CLINICAL INFORMATION: back pain COMPARISON: Correlated to chest x-ray dated May 17, [address] chest dated October 11, 2022. TECHNIQUE: AP lateral and swimmer's projection. FINDINGS: Multilevel marginal osteophyte formation and endplate sclerosis and decreased intervertebral disc height throughout the axial skeleton. No acute cortical disruption or gross malalignment. No lytic or blastic lesions. XR/XR thoracic spine 3V IMPRESSION: Multilevel spondylosis without acute fracture or listhesis. Electronically signed by: Kayden Lundy MD 06/21/2025 12:53 PM [facility]
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
[2025-06-21 11:17] VITALS: BP 151/76; PULSE 87; RESP 20; TEMP 36.2; O2SAT 97; BMI 23.9
--- NOTE | 2025-06-21 11:24 | ECG_ITS ---
Test Reason : headach/nausea Blood Pressure : */* mmHG Vent. Rate : 87 BPM Atrial Rate : 87 BPM P-R Int : 178 ms QRS Dur : 94 ms QT Int : 366 ms P-R-T Axes : 38 -21 20 degrees QTcB Int : 440 ms Normal sinus rhythm with sinus arrhythmia Normal ECG When compared with ECG of 14-Feb-2025 22:04, No significant change was found Referred By: Juan Pablo Virgen Electronically Signed By: PORSCHE DAY
[2025-06-21 12:33] LABS: MANUAL DIFF FLAG NO
[2025-06-21 12:35] LABS: Hematocrit 44.3 % (42.0-52.0); Hemoglobin 15.3 g/dl (14.0-18.0); Imm Gran Abs Auto 0.02 X10*3/uL (0.00-0.03); Imm Gran Pct Auto 0.3 % (0.0-0.4); Lymphocytes Absolute Auto 2.2 X10*3/uL (1.2-4.9); Mean Corpuscular HGB Conc 34.5 g/dl (31.0-36.0); Mean Corpuscular Hemoglobin 32.5 pg (27.0-33.0); Mean Corpuscular Volume 94.1 fL (80.0-98.0); NRBC Abs Auto 0.000 X10*3/uL (0.0-0.012); NRBC Pct Auto 0.0 /100WBC (0.0-0.2); Platelet Count 196 X10*3/uL (160-400); Red Blood Count 4.71 X10*6/uL (4.60-5.80); White Blood Count 8.0 X10*3/uL (4.8-10.8)
[2025-06-21 12:49] LABS: Alanine Aminotransferase 41 U/L (0-40); Albumin Level 5.0 g/dL (3.5-5.0); Alkaline Phosphatase 87 U/L (39-117); Anion Gap 11 (12-20); Aspartate Amino Transferase 28 U/L (5-37); Blood Urea Nitrogen 24 mg/dL (9-16); Calcium 9.6 mg/dL (8.4-10.2); Carbon Dioxide 27 mmol/L (22-29); Chloride 107 mmol/L (96-108); Creatinine Clr Calc Pharmacy 120.1; Estimated Glomerular Filt Rate > 60; Potassium 4.1 mmol/L (3.3-5.1); Sodium 141 mmol/L (135-145); Total Protein 7.3 g/dL (6.5-8.0)
[2025-06-21 12:57] LABS: Troponin-I High Sensitivity < 2.7 ng/L (<3.5-35.0)
[2025-06-21 12:59] LABS: INTERNATIONAL NORM RATIO 1.0 (0.9-1.1); Prothrombin Time 11.8 SEC (11.2-13.5)
[2025-06-21 13:01] LABS: Partial Thromboplastin Time 29.1 SEC (26.7-34.1)
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
--- OUTSIDE RECORDS SUMMARY | 2025-06-21 18:23 | XMS_ITS | Clinical Summary ---
Author Organization [facility] Address [address] [place] [address] Phone Care Team Providers Care [employer] Name Role Phone Unavailable Primary Care Provider [...] 19+ 3-dose series) 1990 Influenza Vaccines (#1) 2025 05/04/2021 COVID-19 Vaccine ( - 2024- season) 2025 04/08/2022, 05/13/2021, 11/05/2020, Additional history exists DTaP,Tdap,and [...] to complete this topic Insurance [facility] BLUE CARD OUT OF STATE
[2025-06-21 20:28] VITALS: BP 151/76; PULSE 87; RESP 20; TEMP 36.2; O2SAT 97
== END 2025-06-21 22:30 | disposition home or self-care (01) ==
PROVIDERS: Physician Assistant; Emergency Provider Emergency Medicine; PCP Nurse Practitioner Family
DX: S06.0X0A Concussion without loss of consciousness, initial encounter (principal); W20.8XXA Other cause of strike by thrown, projected or falling object, initial encounter; Y93.H1 Activity, digging, shoveling and raking; Y92.89 Other specified places as the place of occurrence of the external cause; Y99.8 Other external cause status
CPT/HCPCS: 36415; 70450; 72072; 72125; 80053; 84484; 85025; 85610; 85730; 93005; 99283; 99284

== ENCOUNTER → 2025-06-21 11:21 | Outpatient (BNV) | payer BC, SELFPAY | PROVIDERS: PCP Nurse Practitioner Family; Visit Provider Radiology Body Imaging | DX: S19.9XXA Unspecified injury of neck, initial encounter (principal); M47.812 Spondylosis without myelopathy or radiculopathy, cervical region; R51.9 Headache, unspecified; R11.0 Nausea; W00.0XXA Fall on same level due to ice and snow, initial encounter; M54.6 Pain in thoracic spine; M47.814 Spondylosis without myelopathy or radiculopathy, thoracic region | CPT/HCPCS: 70450; 72072; 72125 ==

== ENCOUNTER → 2025-06-21 11:24 | Outpatient (BNV) | payer BC, SELFPAY | PROVIDERS: Emergency Provider Emergency Medicine; PCP Nurse Practitioner Family; Visit Provider Internal Medicine | DX: R51.9 Headache, unspecified (principal); R11.0 Nausea | CPT/HCPCS: 93010 ==